=== PATIENT | female | born 1980 | race African-American/Black ===

== ENCOUNTER 2016-05-12 15:15 | Inpatient (IN) | payer OTHER ==
[2016-05-12 15:24] VITALS: BMI 40.6
[2016-05-12] MEDS ORDERED: CLINDAMYCIN 600MG PREMIX IVPB 50 ML IVPB ONE ×2 (17:24→17:59)
--- NOTE | 2016-05-12 17:50 | PDOC ---
History of Present Illness - General History Source: Patient - History of Present Illness Occurred: reports: other Severity: Yes: severe Lower Extremity Pain Location: left: foot <Cristi Villagomez - Last Filed: 05/12/16 18:10> <Larry Castillo - Last Filed: 05/12/16 22:14> - General Chief Complaint: Injury Stated Complaint: OPEN WOUND/ LT FOOT Time Seen by Provider: 05/12/16 17:18 Past History - Past Medical History Anemia: Yes Cancer: Yes (1 STENT) CHF: Yes Diabetes: Yes (NIDDM) Dialysis: Yes (Sat LEFT UPPER ARM FISTULA) HTN: Yes Hypercholesterolemia: Yes - Surgical History Cardiac Surgery: Yes (STENT) - Psycho/Social/Smoking Cessation Hx Anxiety: No Suicidal Ideation: No Smoking Status: No Smoking History: Never smoked Years of Tobacco Use: 0 Have you smoked in the past 12 months: No Number of Cigarettes Smoked Daily: 0 Cigars Per Day: 0 Information on smoking cessation initiated: No Hx Alcohol Use: No Drug/Substance Use Hx: No Substance Use Type: None Hx Substance Use Treatment: No <Cristi Villagomez - Last Filed: 05/12/16 18:10> <Larry Castillo - Last Filed: 05/12/16 22:14> - Past Medical History Allergies/Adverse Reactions: Allergies Allergy/AdvReac Type Severity Reaction Status Date / Time No Known Allergies Allergy Verified 05/12/16 15:24 Home Medications: Ambulatory Orders Carvedilol [Coreg -] 25 mg PO BID tablet 01/19/16 Clopidogrel Bisulfate [Plavix -] 75 mg PO DAILY tablet 01/19/16 Pantoprazole Sodium [Protonix -] 40 mg PO BID tablet.ec 01/19/16 Sevelamer Carbonate [Renvela -] 2,400 mg PO TIDCM tab 01/19/16 Review of Systems - Review of Systems Constitutional: No: Chills, Fever, Malaise <Cristi Villagomez Last Filed: 05/12/16 18:10> *Physical Exam - Vital Signs Last Vital Signs Temp Pulse Resp BP Pulse Ox 97.9 F 87 18 114/57 99 05/12/16 15:22 05/12/16 15:22 05/12/16 15:22 05/12/16 15:22 05/12/16 15:22 - Physical Exam General Appearance: Yes: Appropriately Dressed. No: Apparent Distress HEENT: positive: Normal Voice Neck: positive: Supple Respiratory/Chest: negative: Respiratory Distress Extremity: positive: Other (ulcer w/ purulent secretion to plantar aspect of L great toe extending into webspace of L 1st and 2nd digit, gangrene to L geart toe extending into foot, no erythema, pedal pulses ) Integumentary: positive: Dry, Warm Neurologic: positive: Fully Oriented, Alert, Normal Mood/Affect <Cristi Villagomez - Last Filed: 05/12/16 18:10> - Vital Signs Last Vital Signs Temp Pulse Resp BP Pulse Ox 97.9 F 87 18 114/57 99 05/12/16 15:22 05/12/16 15:22 05/12/16 15:22 05/12/16 15:22 05/12/16 15:22 <Larry Castillo - Last Filed: 05/12/16 22:14> ED Treatment Course - LABORATORY CBC & Chemistry Diagram: 05/12/16 17:40 05/12/16 17:40 - RADIOLOGY Radiology Studies Ordered: Category Date Time Status FOOT-LEFT [RAD] Stat Radiology 05/12/16 17:25 Ordered <Cristi Villagomez - Last Filed: 05/12/16 18:10> - LABORATORY CBC & Chemistry Diagram: 05/12/16 17:40 05/12/16 18:25 - ADDITIONAL ORDERS Additional order review: Laboratory Results 05/12/16 05/12/16 05/12/16 18:25 18:25 17:40 Sodium 133 L Cancelled Potassium 4.3 Cancelled Chloride 93 L Cancelled Carbon Dioxide 25 Cancelled Anion Gap 15 Cancelled BUN 47 H D Cancelled Creatinine 9.9 H* Cancelled Creat Clearance w eGFR 4.50 Cancelled Random Glucose 261 H D Cancelled Calcium 9.6 Cancelled Total Bilirubin 0.4 D Cancelled AST 12 L D Cancelled ALT 12 Cancelled Alkaline Phosphatase 106 D Cancelled C-Reactive Protein 7.6 H Total Protein 8.1 Cancelled Albumin 3.2 L Cancelled Serum , Qual 05/12/16 17:40 Sodium Potassium Chloride Carbon Dioxide Anion Gap BUN Creatinine Creat Clearance w eGFR Random Glucose Calcium Total Bilirubin AST ALT Alkaline Phosphatase C-Reactive Protein Total Protein Albumin Serum , Qual Negative 05/12/16 17:40 RBC 3.78 MCV 84.7 MCHC 33.1 RDW 14.7 MPV 9.3 Neutrophils % 74.0 Lymphocytes % 16.5 D Monocytes % 6.0 Eosinophils % 2.4 Basophils % 1.1 - Medications Given in the ED: ED Medications Discontinued Medications Generic Name Dose Route Start Last Admin Trade Name Melissa PRN Reason Stop Dose Admin Clindamycin Phosphate 50 mls @ 100 mls/hr 05/12/16 17:24 05/12/16 18:03 Cleocin 600 Mg Premix Ivpb - IVPB 05/12/16 17:53 100 mls/hr ONCE ONE Administration <Larry Castillo - Last Filed: 05/12/16 22:14> Progress Note - Progress Note Progress Note: No vascular consult per Dr. Mayorga. Instead Podiatry and ID consult. Patient has good distal pulses. <Larry Castillo - Last Filed: 05/12/16 22:14> Medical Decision Making - Medical Decision Making 05/12/16 17:43 36 yo F, NIDDM, ESRD on HD (M/W/F), CAD w/ 1 stent, here w/ wpund to L great toe. Pt states 1 week ago, she noticed "dried skin" to plantar aspect of L great toe and that one day when she removed her sock, dried skin came off. Has since noticed that wound has been getting worse. Denies any sig pain or foul odor. No f/c. See exam Diabetic foot Ulcer w/ cellulitis and gangrene to L great toe extending into foot, pulses -abx -labs -Xr r/o osteo -vascular c/s -admit 05/12/16 17:52 05/12/16 18:10 <Cristi Villagomez - Last Filed: 05/12/16 18:10> *DC/Admit/Observation/Transfer <Cristi Villagomez - Last Filed: 05/12/16 18:10> - Discharge Dispostion Admit: Yes <Larry Castillo - Last Filed: 05/12/16 22:14> Diagnosis at time of Disposition: Diabetic foot ulcer with osteomyelitis - Discharge Dispostion Condition at time of disposition: Fair - Referrals Referrals: Kahlil Hsieh MD [Primary Care Provider] -
[2016-05-12 17:52] LABS: BASOPHIL 1.1 % (0-2.0); EOSINOPHIL 2.4 % (0-4.5); MCHC 33.1 g/dl (32.0-36.0); MEAN CELL VOLUME 84.7 fl (80-96); MEAN PLT VOLUME 9.3 fl (7.5-11.1); PLATELET COUNT 228 K/MM3 (134-434); RDW 14.7 % (11.6-15.6); WHITE BLOOD COUNT 10.9 K/mm3 (4.0-10.0)
[2016-05-12 20:05] LABS: ALBUMIN 3.2 g/dl (3.4-5.0); BILIRUBIN,TOTAL 0.4 mg/dL (0.2-1.0); CALCIUM 9.6 mg/dL (8.5-10.1); TOT PROT 8.1 g/dl (6.4-8.2)
[2016-05-12 21:03] LABS: CREATININE 9.9 mg/dL (0.55-1.02)
--- NOTE | 2016-05-12 21:40 | HP ---
CHIEF COMPLAINT: Left Foot pain PCP: Kahlil Hsieh MD HISTORY OF PRESENT ILLNESS: 36 yo F, NIDDM, ESRD on HD (M/W/F), CAD (s/p 2015) here w/ pain and open wound of Left foot. Pt presents with 1 week h/o woursening wound of left foot. States she noticed "dried skin" to plantar aspect of L great toe and that one day when she removed her sock, dried skin came off. She says she hasn' t seen decorating inspector in over a year. Denies significant pain or swelling.Denies CP, JOHNSON, SOB, abd.pain, n/v. ER course was notable for: (1) foot xray suspicious for osteomyletis. (2) ESR elevated. (3) Started of Clindamycin Recent Travel:NO PAST MEDICAL HISTORY: NIDDM, ESRD on HD (M/W/F), CAD (s/p MARIE 05/2015) PAST SURGICAL HISTORY: MARIE 05/2015 Social History: Smoking:No Alcohol:no Drugs: no Family History: Allergies No Known Allergies Allergy (Verified 05/12/16 15:24) HOME MEDICATIONS: Home Medications Medication Instructions Recorded Carvedilol [Coreg -] 25 mg PO BID tablet 01/19/16 Clopidogrel Bisulfate [Plavix -] 75 mg PO DAILY tablet 01/19/16 Pantoprazole Sodium [Protonix -] 40 mg PO BID tablet.ec 01/19/16 Sevelamer Carbonate [Renvela -] 2,400 mg PO TIDCM tab 01/19/16 REVIEW OF SYSTEMS CONSTITUTIONAL: Absent: fever, chills, diaphoresis, generalized weakness, malaise, loss of appetite, weight change HEENT: Absent: rhinorrhea, nasal congestion, throat pain, throat swelling, difficulty swallowing, mouth swelling, ear pain, eye pain, visual changes CARDIOVASCULAR: Absent: chest pain, syncope, palpitations, irregular heart rate, lightheadedness , peripheral edema RESPIRATORY: Absent: cough, shortness of breath, dyspnea with exertion, orthopnea, wheezing, stridor, hemoptysis GASTROINTESTINAL: Absent: abdominal pain, abdominal distension, nausea, vomiting, diarrhea, constipation, melena, hematochezia GENITOURINARY: Absent: dysuria, frequency, urgency, hesitancy, hematuria, flank pain, genital pain MUSCULOSKELETAL: (+)foot ulcer Absent: myalgia, arthralgia, joint swelling, back pain, neck pain SKIN: Absent: rash, itching, pallor HEMATOLOGIC/IMMUNOLOGIC: Absent: easy bleeding, easy bruising, lymphadenopathy, frequent infections ENDOCRINE: Absent: unexplained weight gain, unexplained weight loss, heat intolerance, cold intolerance NEUROLOGIC: Absent: headache, focal weakness or paresthesias, dizziness, unsteady gait, seizure, mental status changes, bladder or bowel incontinence PSYCHIATRIC: Absent: anxiety, depression, suicidal or homicidal ideation, hallucinations. PHYSICAL EXAMINATION Vital Signs - 24 hr 05/12/16 15:22 Temperature 97.9 F Pulse Rate 87 Respiratory 18 Rate Blood Pressure 114/57 O2 Sat by Pulse 99 Oximetry (%) GENERAL: Awake, alert, and fully oriented, in no acute distress. HEAD: Normal with no signs of trauma. EYES:Left pupil round and reactive to light, extraocular movements intact, sclera anicteric, conjunctiva clear. Right sided lid lag.Right eye complete opacification. EARS, NOSE, THROAT: Ears normal, nares patent, oropharynx clear without exudates. dry mucous membranes. NECK: Normal range of motion, supple without lymphadenopathy, JVD, or masses. LUNGS: Breath sounds equal, clear to auscultation bilaterally. No wheezes, and no crackles. No accessory muscle use. HEART: Regular rate and rhythm, normal S1 and S2 without murmur, rub or gallop. ABDOMEN: Soft, nontender, not distended, normoactive bowel sounds, no guarding, no rebound, no masses. No hepatomegaly or splenomegaly. MUSCULOSKELETAL: Normal range of motion at all joints. No bony deformities or tenderness. No CVA tenderness. Left UE AV fistula UPPER EXTREMITIES: 2+ pulses, warm, well-perfused. No cyanosis. No clubbing. Cap refill <2 seconds. No peripheral edema. LOWER EXTREMITIES: 2+ pulses, warm, well-perfused. No calf tenderness. purulent ulcer of plantar surface of L great toe extending into webspace of L 1st and 2nd digit, desquamation left 1 and 2 toe,no crepitations, no erythema, 2+ pedal pulses NEUROLOGICAL: Cranial nerves II-XII intact. Normal speech. gait not observed. PSYCHIATRIC: Cooperative. Good eye contact. Appropriate mood and affect. SKIN: Warm, dry, normal turgor, no rashes or lesions noted. Laboratory Results - last 24 hr 05/12/16 05/12/16 05/12/16 17:40 17:40 17:40 WBC 10.9 H D RBC 3.78 Hgb 10.6 L D Hct 32.0 L MCV 84.7 MCHC 33.1 RDW 14.7 Plt Count 228 D MPV 9.3 Neutrophils % 74.0 Lymphocytes % 16.5 D Monocytes % 6.0 Eosinophils % 2.4 Basophils % 1.1 ESR Sodium Cancelled Potassium Cancelled Chloride Cancelled Carbon Dioxide Cancelled Anion Gap Cancelled BUN Cancelled Creatinine Cancelled Creat Clearance w eGFR Cancelled Random Glucose Cancelled Calcium Cancelled Total Bilirubin Cancelled AST Cancelled ALT Cancelled Alkaline Phosphatase Cancelled C-Reactive Protein Total Protein Cancelled Albumin Cancelled Serum , Qual Negative 05/12/16 05/12/16 05/12/16 17:40 18:25 18:25 WBC RBC Hgb Hct MCV MCHC RDW Plt Count MPV Neutrophils % Lymphocytes % Monocytes % Eosinophils % Basophils % ESR 113 H Sodium 133 L Potassium 4.3 Chloride 93 L Carbon Dioxide 25 Anion Gap 15 BUN 47 H D Creatinine 9.9 H* Creat Clearance w eGFR 4.50 Random Glucose 261 H D Calcium 9.6 Total Bilirubin 0.4 D AST 12 L D ALT 12 Alkaline Phosphatase 106 D C-Reactive Protein 7.6 H Total Protein 8.1 Albumin 3.2 L Serum , Qual ASSESSMENT/PLAN: 36 yo F, NIDDM, ESRD on HD (M/W/F), CAD w/ 1 stent admitted for diabetic foot ulcer r/o osteomyelitis. Problem List - Problem (1) Diabetic foot ulcer with osteomyelitis Assessment/Plan: * MRI of left foot * Given Clindamycin in ED * WIll give stat dose Vanco and Zosyn * ID consult Dr. Mckinley * Podiatry consult Dr. Mcpherson. * wound care * culture of wound * repeat labs in AM (2) DM (diabetes mellitus), type 2 with renal complications Assessment/Plan: * ADA/sodium/ renal diet * BGM ACHS * ISS ACHS * Hgb A1c (3) ESRD (end stage renal disease) on dialysis Assessment/Plan: * renal diet * Consult Nephrology Dr. Richards for dialysis MWF * avoid nephrotoxins * repeat CMP in AM (4) CAD (coronary artery disease) Assessment/Plan: * continue clopidogrel 75mg PO dialy * continue Carvedolol 25mg PO BID. * monitor for CP symptoms (5) HLD (hyperlipidemia) Assessment/Plan: * Intolerant to statin therapy (6) HTN (hypertension) Assessment/Plan: * Continue Carvedilol 75mg PO bid (7) DVT prophylaxis Assessment/Plan: * Heparin 5000U BID SQ Visit type - Emergency Visit Emergency Visit: Yes ED Registration Date: 05/12/16 Care time: The patient presented to the Emergency Department on the above date and was hospitalized for further evaluation of their emergent condition. - New Patient This patient is new to me today: Yes Date on this admission: 05/13/16 - Critical Care Critical Care patient: No
[2016-05-12] MEDS ORDERED: oxyCODONE HCL 5 MG TABLET PO PRN (22:11)
[2016-05-12] MEDS ORDERED: ONDANSETRON 4 MG/2 ML VIAL IVPB PRN (22:11)
[2016-05-12] MEDS ORDERED: ALBUTEROL SO4 0.083% IH SOL 2.5 MG/3 ML VIAL.NEB. NEB PRN (22:11)
[2016-05-12] MEDS ORDERED: VANCOMYCIN 1 GRAM (PRE-DOCKED) 250 ML IVPB ONE ×2 (22:22→23:03)
--- NOTE | 2016-05-12 22:34 | PN ---
<Cele Mayorga - Last Filed: 05/12/16 22:34> Teaching Attending Note Name of Resident: Rafa Chairez <Ashanti Pizarro - Last Filed: 05/12/16 23:54> Teaching Attending Note ATTENDING PHYSICIAN STATEMENT I saw and evaluated the patient. I reviewed the resident's note and discussed the case with the resident. I agree with the resident's findings and plan as documented. SUBJECTIVE: 36 year old female complaining of wound on plantar aspect of left foot for 1 week. Patient states while taking off socks, noticed a patch of dry skin on the left foot had peeled off. Despite trying to manage the wound at home it progressively got worse. Patient has a history of diabetes and has not been on any medications or followed guidelines for lab asst evaluation. She states that she has not seen a lab asst for over 1 year. She denies fever, chills, headache, cp, SOB, nausea, vomiting, abdominal pain, diarrhea or constipation. PMH: NIDDM (non compliant with medication), ESRD on HD (M/W/F), CAD w/ 1 stent, [place] (2016), CHF, HLD, HTN PSH: stent placement FMH: non contributory SH: denies smoking, drinking, drug use OBJECTIVE: VS: Last Vital Signs Temp Pulse Resp BP Pulse Ox 98.0 F 83 18 133/64 98 05/12/16 21:10 05/12/16 21:10 05/12/16 21:10 05/12/16 21:10 05/12/16 21:10 GENERAL:+Obese. Awake, alert, and fully oriented, in no acute distress HEENT: +lid lag, opacification of cornea. Atraumatic. Moist mucosa. No JVD LUNGS: No distress, speaks full sentences, clear to auscultation bilaterally HEART: Regular rate and rhythm, normal S1 and S2, no murmurs, rubs or gallops, peripheral pulses normal and equal bilaterally. ABDOMEN: Soft, nontender, normoactive bowel sounds. No guarding, no rebound. No masses EXTREMITIES: + purulent ulcer of plantar surface of L great toe extending into webspace of L 1st and 2nd digit, no crepitations, no erythema, 2+ pedal pulses , desquamation of skin of L forefoot. Normal range of motion, no edema. No clubbing or cyanosis. NEUROLOGICAL: Cranial nerves II through XII grossly intact. Normal speech, no focal sensorimotor deficits SKIN: Warm, Dry, normal turgor, no rashes. Labs: CBCD WBC 10.9 K/mm3 (4.0-10.0) H D 05/12/16 17:40 RBC 3.78 M/mm3 (3.60-5.2) 05/12/16 17:40 Hgb 10.6 GM/dL (10.7-15.3) L D 05/12/16 17:40 Hct 32.0 % (32.4-45.2) L 05/12/16 17:40 MCV 84.7 fl (80-96) 05/12/16 17:40 MCHC 33.1 g/dl (32.0-36.0) 05/12/16 17:40 RDW 14.7 % (11.6-15.6) 05/12/16 17:40 Plt Count 228 K/MM3 (134-434) D 05/12/16 17:40 MPV 9.3 fl (7.5-11.1) 05/12/16 17:40 CMP Sodium 133 mmol/L (136-145) L 05/12/16 18:25 Potassium 4.3 mmol/L (3.5-5.1) 05/12/16 18:25 Chloride 93 mmol/L (98-107) L 05/12/16 18:25 Carbon Dioxide 25 mmol/L (21-32) 05/12/16 18:25 Anion Gap 15 (8-16) 05/12/16 18:25 BUN 47 mg/dL (7-18) H D 05/12/16 18:25 Creatinine 9.9 mg/dL (0.55-1.02) H* 05/12/16 18:25 Creat Clearance w eGFR 4.50 (>60) 05/12/16 18:25 Calcium 9.6 mg/dL (8.5-10.1) 05/12/16 18:25 Total Bilirubin 0.4 mg/dL (0.2-1.0) D 05/12/16 18:25 AST 12 U/L (15-37) L D 05/12/16 18:25 ALT 12 U/L (12-78) 05/12/16 18:25 Alkaline Phosphatase 106 U/L (45-117) D 05/12/16 18:25 Total Protein 8.1 g/dl (6.4-8.2) 05/12/16 18:25 Albumin 3.2 g/dl (3.4-5.0) L 05/12/16 18:25 Foot Xray Impression: Left fifth metatarsal deformity. See above. ASSESSMENT AND PLAN: Admitted for left foot wound r/o osteomyelitis Diabetic foot wound - Vanco/Zosyn - Spanisher consult - MRI of L foot - ID consult - Blood cultures - U cultures Uncontrolled diabetes - Hemoglobin A1C - Diabetic management - RISS ESRD - on HD MWF - Nephrology consult DVT ppx Documentation prepared by Ashanti Pizarro, acting as medical affairs leader for Cele Mayorga M.D.
[2016-05-12] MEDS ORDERED: PIPERACILLIN/TAZOB 2.25 GM 50 ML IVPB ONE (22:42)
[2016-05-13] MEDS: INSULIN SLIDING SCALE (NOVOLOG) 1 VIAL SQ SCH ×4 (06:22→23:20)
[2016-05-13 08:21] LABS: MAGNESIUM 2.1 mg/dL (1.8-2.4); PHOSPHOROUS 7.8 mg/dL (2.5-4.9)
[2016-05-13] MEDS: SEVELAMER CARBONATE 800 MG TAB (FP) PO SCH ×3 (08:23→17:50)
[2016-05-13 08:31] LABS: BILIRUBIN,TOTAL 0.4 mg/dL (0.2-1.0); TOT PROT 7.6 g/dl (6.4-8.2)
--- NOTE | 2016-05-13 08:40 | PN ---
Physical Exam: SUBJECTIVE: Patient seen and examined. She has no complaints. OBJECTIVE: Vital Signs Period Temp Pulse Resp BP Sys/Canales Pulse Ox Last 24 Hr 97.5 F-97.9 F 76-78 18-18 124-138/62-79 98 GENERAL: The patient is awake, alert, and fully oriented, in no acute distress. LUNGS: Breath sounds equal, clear to auscultation bilaterally, no wheezes, no crackles, no accessory muscle use. HEART: Regular rate and rhythm, S1, S2 without murmur, rub or gallop. ABDOMEN: Obese, soft, nontender, nondistended, normoactive bowel sounds, no guarding, no rebound, no hepatosplenomegaly, no masses. EXTREMITIES: 2+ pulses, warm, well-perfused, no edema. Plantar ulcer of left 1st toe without purulent drainage. Laboratory Results - last 24 hr 05/13/16 06:15 POC Glucometer 213 Active Medications Generic Name Dose Route Start Last Admin Trade Name Freq PRN Reason Stop Dose Admin Albuterol Sulfate 1 amp 05/12/16 22:11 Ventolin 0.083% Nebulizer Soln - NEB Q4H PRN SHORT OF BREATH/WHEEZING Carvedilol 25 mg 05/13/16 10:00 Coreg - PO BID [facility]1983 Clopidogrel Bisulfate 75 mg 05/13/16 10:00 Plavix - PO DAILY SOLOMON Heparin Sodium (Porcine) 5,000 unit 05/13/16 10:00 Heparin - SQ BID SOLOMON Insulin Aspart 1 vial 05/13/16 07:00 05/13/16 06:22 Novolog Vial Sliding Scale - SQ 4 units ACHS SOLOMON Administration Protocol Ondansetron HCl 4 mg 05/12/16 22:11 Zofran Injection IVPB Q6H PRN NAUSEA Oxycodone HCl 5 mg 05/12/16 22:11 Roxicodone - PO Q4H PRN PAIN Pantoprazole Sodium 40 mg 05/13/16 10:00 Protonix - PO BID SOLOMON Sevelamer Carbonate 2,400 mg 05/13/16 08:00 05/13/16 08:23 Renvela - PO 2,400 mg TIDCM SOLOMON Administration ASSESSMENT/PLAN: This is a 36-year-old woman with a history of type 2 DM, ESRD on HD, CAD, stent , HTN, hyperlipidemia who was admitted with an infected diabetic foot ulcer. 1. Infected diabetic ulcer of left foot - Clindamycin, Vancomycin given in ER - Start Zosyn - Follow-up wound culture - ESR is 113 - MRI to evaluate for osteomyelitis - ID and podiatry consults 2. Type 2 diabetes mellitus - Continue Novolog sliding scale 3. ESRD on dialysis - Nephrology consult for HD - Continue Renvela 4. CAD, history of stent - Continue Coreg, Plavix 5. Hyperlipidemia - Unable to tolerate statins 6. Hypertension - Continue Coreg 7. Morbid obesity with BMI 41.4 Problem List - Problems (1) Morbid obesity with BMI of 40.0-44.9, adult Code(s): E66.01 - MORBID (SEVERE) OBESITY DUE TO EXCESS CALORIES Z68.41 - BODY MASS INDEX (BMI) 40.0-44.9, ADULT (2) Diabetic foot ulcer with osteomyelitis Code(s): E11.621 - TYPE 2 DIABETES MELLITUS WITH FOOT ULCER E11.69 - TYPE 2 DIABETES MELLITUS WITH OTHER SPECIFIED COMPLICATION L97.509 - NON-PRESSURE CHRONIC ULCER OTH PRT UNSP FOOT W UNSP SEVERITY M86.9 - OSTEOMYELITIS, UNSPECIFIED (3) CAD (coronary artery disease) Code(s): I25.10 - ATHSCL HEART DISEASE OF [place] CORONARY ARTERY W/O ANG PCTRS (4) DM (diabetes mellitus), type 2 with renal complications Code(s): E11.29 - TYPE 2 DIABETES MELLITUS W OTH DIABETIC KIDNEY COMPLICATION Qualifiers: Diabetes mellitus complication detail: with chronic kidney disease Diabetes mellitus dedicated 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 insulin use: unspecified dedicated 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 insulin use status Chronic kidney disease stage: unspecified stage Qualified Code (s): E11.22 - Type 2 diabetes mellitus with diabetic chronic kidney disease; N18.1 - Chronic kidney disease, stage 1; Z79.4 - prison (current) use of insulin (5) ESRD (end stage renal disease) on dialysis Code(s): N18.6 - END STAGE RENAL DISEASE Z99.2 - DEPENDENCE ON RENAL DIALYSIS (6) HLD (hyperlipidemia) Code(s): E78.5 - HYPERLIPIDEMIA, UNSPECIFIED (7) HTN (hypertension) Code(s): I10 - ESSENTIAL (PRIMARY) HYPERTENSION Qualifiers: Hypertension type: essential hypertension Qualified Code(s): I10 - Essential (primary) hypertension (8) Stented coronary artery Code(s): Z95.5 - PRESENCE OF CORONARY ANGIOPLASTY IMPLANT AND GRAFT Visit type - Emergency Visit Emergency Visit: Yes ED Registration Date: 05/12/16 Care time: The patient presented to the Emergency Department on the above date and was hospitalized for further evaluation of their emergent condition. - New Patient This patient is new to me today: Yes Date on this admission: 05/13/16 - Critical Care Critical Care patient: No - Discharge Referral Referred to [facility] No
[2016-05-13 08:41] LABS: CREATININE 11.1 mg/dL (0.55-1.02)
[2016-05-13 10:18] LABS: BASOPHIL 1.1 % (0-2.0); EOSINOPHIL 3.1 % (0-4.5); MCH 28.2 pg (25.7-33.7); MCHC 32.8 g/dl (32.0-36.0); MEAN CELL VOLUME 86.1 fl (80-96); MEAN PLT VOLUME 9.4 fl (7.5-11.1); NEUTROPHILS 70.1 % (42.8-82.8); PLATELET COUNT 228 K/MM3 (134-434); RDW 14.5 % (11.6-15.6); WHITE BLOOD COUNT 10.6 K/mm3 (4.0-10.0)
[2016-05-13 10:30] LABS: INR 1.08 (0.82-1.09); PROTHROMBIN TIME (PATIENT) 11.9 SEC (9.98-11.88)
[2016-05-13] MEDS: CLOPIDOGREL BISULFATE 75 MG TABLET (FP) PO SCH (10:55)
[2016-05-13] MEDS: CARVEDILOL 25 MG TABLET (FP) PO SCH ×2 (10:55→23:21)
[2016-05-13] MEDS: PANTOPRAZOLE 40 MG TABLET (FP) PO SCH ×2 (10:55→23:21)
[2016-05-13] MEDS: HEPARIN NA (PORCINE) 5,000 UNITS/ML 1ML VIAL SQ SCH ×2 (10:55→23:21)
[2016-05-13 11:17] LABS: PLATELET COMMENT2 NO CLOTTING DETECTED; PLATELET ESTIMATE ADEQUATE (NORMAL)
--- NOTE | 2016-05-13 13:02 | CONSULT ---
Consult - text type - Consultation Consultation Note: Podiatry Consultation: 36 year old non-compliant IDDM F presents for admission with L great toe ulcer x 2 weeks after developing scab on the foot. She denies seeing pus, does see clear drainage from the area of the last week. Denies F/V/N/C/SOB/CP. Afebrile , VSS. PMHx: IDDM, ESRD on HD, CAD s/p stent 2015 Meds: noted in chart PSHx: CAD s/p stent 2015 ALL: NKMA TAMKIA: Pedal pulses palpable, TG wnl, CFT brisk to all toes bilaterally. On the left foot, there is an ulcer plantar hallux and 1st interspace. The plantar aspect of the wound is mostly granular, there is some fibrotic slough at the 1st interspace. There is minimal periwound swelling and erythema. There is no purulence, no fluctuance, no ascending cellulitis. Minimal tenderness to palpation of wound. WBC: 10.6 ESR: 113 Wound Cx: pending L foot XR: ? of superimposed OM L 5th metatarsal Imp: 36 year old DM F with L foot DFI 1. C/w IV abx per ID 2. MRI pending 3. ESR clearly elevated 4. Will make further plan of action depending on results of MRI. Thank you for the courtesy of this consultation.
[2016-05-13] MEDS ORDERED: PIPERACILLIN/TAZOB 2.25 GM 50 ML IVPB ONE (14:30)
--- NOTE | 2016-05-13 14:34 | CONSULT ---
Consult Consult Specialty:: infectious diseases Reason for Consultation:: r/o osteo of the rt foot - History of Present Illness History of Present Illness: 36 yo F, NIDDM, ESRD on HD (M/W/F), CAD (s/p MARIE 2015) here w/ pain and open wound of Left foot. Pt presents with 1 week h/o worsening wound of left foot. L great toe ulcer x 2 weeks after developing scab on the foot. She denies seeing pus, does see clear drainage from the area of the last week. currently patient does not have any pain and it seems patient has multiple spots where the wounds are - History Source History Provided By: Patient, Family Member Limitations to Obtaining History: No Limitations - Past Medical History Cardio/Vascular: Yes: CAD, HTN Pulmonary: Yes: Asthma Gastrointestinal: Yes: GERD Renal/: Yes: Renal Failure ...LMP: 03/08/11 Endocrine: Yes: Diabetes Mellitus - Past Surgical History Past Surgical History: Yes: Stent - Alcohol/Substance Use Hx Alcohol Use: No - Smoking History Smoking history: Never smoked Have you smoked in the past 12 months: No Aproximately how many cigarettes per day: 0 - Social History ADL: Independent History of Recent Travel: No Home Medications - Allergies Allergies/Adverse Reactions: Allergies Allergy/AdvReac Type Severity Reaction Status Date / Time No Known Allergies Allergy Verified 05/12/16 15:24 - Home Medications Home Medications: Ambulatory Orders Carvedilol [Coreg -] 25 mg PO BID tablet 01/19/16 Clopidogrel Bisulfate [Plavix -] 75 mg PO DAILY tablet 01/19/16 Pantoprazole Sodium [Protonix -] 40 mg PO BID tablet.ec 01/19/16 Sevelamer Carbonate [Renvela -] 2,400 mg PO TIDCM tab 01/19/16 Review of Systems - Review of Systems Constitutional: reports: No Symptoms Eyes: reports: No Symptoms HENT: reports: No Symptoms Neck: reports: No Symptoms Cardiovascular: reports: No Symptoms Respiratory: reports: No Symptoms Gastrointestinal: reports: No Symptoms Genitourinary: reports: No Symptoms Musculoskeletal: reports: Joint Pain, Other (draiange from the wound) Integumentary: reports: Erythema Neurological: reports: No Symptoms Endocrine: reports: No Symptoms Hematology/Lymphatic: reports: No Symptoms Psychiatric: reports: No Symptoms Physical Exam Vital Signs: Vital Signs Temperature 97.3 F L 05/13/16 10:00 Pulse Rate 83 05/13/16 10:00 Respiratory Rate 20 05/13/16 10:00 Blood Pressure 134/73 05/13/16 10:00 O2 Sat by Pulse Oximetry (%) 98 05/13/16 01:14 Constitutional: Yes: Well Nourished, No Distress, Calm Eyes: Yes: Conjunctiva Clear HENT: Yes: Atraumatic Neck: Yes: Supple, Trachea Midline Cardiovascular: Yes: Regular Rate and Rhythm Respiratory: Yes: Regular, CTA Bilaterally Gastrointestinal: Yes: Normal Bowel Sounds, Soft Extremities: Yes: Other (On the left foot, there is an ulcer plantar hallux and 1st interspace. The plantar aspect of the wound with fibrotic slough at the 1st interspace. There is minimal periwound swelling and erythema. There is no purulence, no fluctuance, no ascending cellulitis. Minimal tenderness to palpation of wound.) Integumentary: Yes: Venous Stasis Changes, Other Wound/Incision: Yes: Clean/Dry, Dressing Dry and Intact Neurological: Yes: Alert, Oriented Psychiatric: Yes: Alert Labs: CBC, BMP 05/13/16 09:30 05/13/16 07:00 Imaging - Results X-ray: Report Reviewed, Image Reviewed Assessment/Plan patient evaluated i am worried that the patient might have deeper infection.i agree with mri.The wound though looks good and dried patient received abx after looking at patients esr i am going to start abx will await for cx report Problem List - Problem (1) Diabetic foot ulcer (2) DM (diabetes mellitus), type 2 with renal complications (3) ESRD (end stage renal disease) on dialysis (4) CAD (coronary artery disease) (5) HLD (hyperlipidemia) (6) HTN (hypertension) r/o osteo plan will start patient on ceftriaxone also will give oral clinda
[2016-05-13] MEDS: CEFTRIAXONE 1G/50 ML IVPB SCH (16:29)
[2016-05-13] MEDS: COLLAGENASE CLOSTRIDIUM HIST. 30 GRAMS TUBE TP SCH (16:41)
--- NOTE | 2016-05-13 17:45 | CONSULT ---
Consult Consult Specialty:: Nephrology Reason for Consultation:: ESRD - History of Present Illness Chief Complaint: left foot wound History of Present Illness: Pt is a 36 year old female with pmhx of DM, ESRD and CAD who presents to the ER with pain in her left foot. She first noticed a scab on Saturday and it worsened through the course of the week. She last went for HD on Saturday as she is a MWF schedule. She denies shortness of breath or palpitations. She denies fevers or chills. - History Source History Provided By: Patient - Past Medical History Cardio/Vascular: Yes: CAD, HTN Pulmonary: Yes: Asthma Gastrointestinal: Yes: GERD Renal/: Yes: Renal Failure, Hemodialysis ...LMP: 03/08/11 Endocrine: Yes: Diabetes Mellitus - Past Surgical History Past Surgical History: Yes: Stent - Alcohol/Substance Use Hx Alcohol Use: No - Smoking History Smoking history: Never smoked Have you smoked in the past 12 months: No Aproximately how many cigarettes per day: 0 - Social History ADL: Independent History of Recent Travel: No Home Medications - Allergies Allergies/Adverse Reactions: Allergies Allergy/AdvReac Type Severity Reaction Status Date / Time No Known Allergies Allergy Verified 05/12/16 15:24 - Home Medications Home Medications: Ambulatory Orders Carvedilol [Coreg -] 25 mg PO BID tablet 01/19/16 Clopidogrel Bisulfate [Plavix -] 75 mg PO DAILY tablet 01/19/16 Pantoprazole Sodium [Protonix -] 40 mg PO BID tablet.ec 01/19/16 Sevelamer Carbonate [Renvela -] 2,400 mg PO TIDCM tab 01/19/16 Family Disease History - Family Disease History Other Family History: DM Review of Systems - Review of Systems Constitutional: reports: No Symptoms Eyes: reports: No Symptoms HENT: reports: No Symptoms Neck: reports: No Symptoms Cardiovascular: reports: No Symptoms Respiratory: reports: No Symptoms Gastrointestinal: reports: No Symptoms Genitourinary: reports: No Symptoms Musculoskeletal: reports: Other (foot pain) Neurological: reports: No Symptoms Endocrine: reports: No Symptoms Hematology/Lymphatic: reports: No Symptoms Physical Exam Vital Signs: Vital Signs Temperature 97.6 F 05/13/16 14:37 Pulse Rate 69 05/13/16 14:37 Respiratory Rate 20 05/13/16 14:37 Blood Pressure 126/63 05/13/16 14:37 O2 Sat by Pulse Oximetry (%) 95 05/13/16 09:00 Constitutional: Yes: Calm Eyes: Yes: Conjunctiva Clear Neck: Yes: Supple Cardiovascular: Yes: S1, S2 Respiratory: Yes: CTA Bilaterally Gastrointestinal: Yes: Soft, Abdomen, Obese Renal/: Yes: WNL Musculoskeletal: Yes: Other Edema: Yes Neurological: Yes: Oriented Psychiatric: Yes: Oriented Labs: CBC, BMP 05/13/16 09:30 05/13/16 07:00 Laboratory Tests 05/12/16 05/12/16 05/12/16 17:40 18:25 22:00 WBC 10.9 H D INR Sodium 133 L Potassium 4.3 Chloride 93 L Carbon Dioxide 25 Anion Gap 15 BUN 47 H D Creatinine 9.9 H* Creat Clearance w eGFR 4.50 Random Glucose Hemoglobin A1c % 9.1 H D 05/13/16 05/13/16 05/13/16 07:00 09:30 09:30 WBC 10.6 H INR 1.08 Sodium 132 L Potassium 4.1 Chloride 94 L Carbon Dioxide 24 Anion Gap 14 BUN 57 H D Creatinine 11.1 H* Creat Clearance w eGFR 3.95 Random Glucose 209 H Hemoglobin A1c % Imaging - Results X-ray: Report Reviewed Problem List - Problems (1) CAD (coronary artery disease) Code(s): I25.10 - ATHSCL HEART DISEASE OF [place] CORONARY ARTERY W/O ANG PCTRS (2) DM (diabetes mellitus), type 2 with renal complications Code(s): E11.29 - TYPE 2 DIABETES MELLITUS W OTH DIABETIC KIDNEY COMPLICATION Qualifiers: Diabetes mellitus complication detail: with chronic kidney disease Diabetes mellitus 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 terminal manager insulin use: unspecified truck terminal manager insulin use status Chronic kidney disease stage: unspecified stage Qualified Code (s): E11.22 - Type 2 diabetes mellitus with diabetic chronic kidney disease; N18.1 - Chronic kidney disease, stage 1; Z79.4 - senior living (current) use of insulin (3) ESRD (end stage renal disease) on dialysis Code(s): N18.6 - END STAGE RENAL DISEASE Z99.2 - DEPENDENCE ON RENAL DIALYSIS (4) HLD (hyperlipidemia) Code(s): E78.5 - HYPERLIPIDEMIA, UNSPECIFIED (5) HTN (hypertension) Code(s): I10 - ESSENTIAL (PRIMARY) HYPERTENSION Qualifiers: Hypertension type: essential hypertension Qualified Code(s): I10 - Essential (primary) hypertension Assessment/Plan Current Medications Generic Name Dose Route Start Last Admin Trade Name Freq PRN Reason Stop Dose Admin Albuterol Sulfate 1 amp 05/12/16 22:11 Ventolin 0.083% Nebulizer Soln - NEB Q4H PRN SHORT OF BREATH/WHEEZING Carvedilol 25 mg 05/13/16 10:00 05/13/16 10:55 Coreg - PO 25 mg BID [facility] Administration Clindamycin HCl 300 mg 05/13/16 18:00 Cleocin - PO Q6HPO [facility] Clopidogrel Bisulfate 75 mg 05/13/16 10:00 05/13/16 10:55 Plavix - PO 75 mg DAILY [facility] Administration Collagenase 1 applic 05/14/16 10:00 05/13/16 16:41 Santyl - TP 1 applic DAILY [facility] Administration Heparin Sodium (Porcine) 5,000 unit 05/13/16 10:00 05/13/16 10:55 Heparin - SQ 5,000 unit BID [facility] Administration Ceftriaxone Sodium 50 mls @ 100 mls/hr 05/13/16 14:45 05/13/16 16:29 Rocephin 1gm Ivpb (Pre-Docked) IVPB 100 mls/hr DAILY [facility] Administration Insulin Aspart 1 vial 05/13/16 07:00 05/13/16 16:30 Novolog Vial Sliding Scale - SQ 4 units ACHS [facility] Administration Protocol Ondansetron HCl 4 mg 05/12/16 22:11 Zofran Injection IVPB Q6H PRN NAUSEA Oxycodone HCl 5 mg 05/12/16 22:11 Roxicodone - PO Q4H PRN PAIN Pantoprazole Sodium 40 mg 05/13/16 10:00 05/13/16 10:55 Protonix - PO 40 mg BID [facility] Administration Sevelamer Carbonate 2,400 mg 05/13/16 08:00 05/13/16 12:31 Renvela - PO 2,400 mg TIDCM [facility] Administration Impression 1. ESRD 2. DFU 3. DM 4. CAD 5. GERD Plan - will arrange for HD tomorrow - cont renvela - podiatry eval - cont abx and wound care - resume home meds Dr Richards
[2016-05-13] MEDS: CLINDAMYCIN HCL 150 MG CAPSULE (FP) PO SCH (17:50)
[2016-05-14] MEDS: CLINDAMYCIN HCL 150 MG CAPSULE (FP) PO SCH ×4 (05:58→18:11)
[2016-05-14] MEDS: SEVELAMER CARBONATE 800 MG TAB (FP) PO SCH ×3 (08:39→17:49)
[2016-05-14] MEDS: INSULIN SLIDING SCALE (NOVOLOG) 1 VIAL SQ SCH ×4 (09:17→22:47)
[2016-05-14] MEDS: CARVEDILOL 25 MG TABLET (FP) PO SCH ×2 (11:00→22:47)
--- NOTE | 2016-05-14 11:19 | PN ---
Progress Note (short form) - Note Progress Note: Podiatry: Seen and evaluated at bedside, NAD. Pain well controlled, denies F/V/N/C/SOB/ CP. Patient non-compliant to DM diet. Missed her am dialysis due to leaving her bed to get food in the cafeteria. Afebrile, VSS. TAMIKA: L foot: pedal pulses palpable, TG wnl, CFT brisk to all toes. There is a plantar hallux ulcer, mixed fibrogranular, no probing deep, no purulence, no fluctuance. There is a 1st interspace wound, mostly fibrotic with some liquefactive tissue, probes deep, no purulence, no fluctuance, no ascending cellulitis, no soft tissue crepitus, no signs of active infection. WBC: 10.6 ESR: 113 L foot MRI: pending Imp: 36 year old IDDM F with L foot DFI 1. C/w IV abx per ID 2. MRI pending. Complicated by the fact that the patient had coronary stents placed 2015. 3. Will need debridement/lavage, however need MRI to determine if bone biopsy is necessary. 4. Plan for OR tomorrow. NPO after breakfast. Needs cardiac clearance prior to procedure, for IV sedation and local. 5. Will follow. Ajay Palomino DPM
--- NOTE | 2016-05-14 11:51 | PN ---
Physical Exam: SUBJECTIVE: Patient seen and examined. no complaints, waiting for dialysis. OBJECTIVE: Vital Signs Period Temp Pulse Resp BP Sys/Canales Pulse Ox Last 24 Hr 97.3 F-97.9 F 69-75 18-20 126-137/63-72 95 GENERAL: The patient is awake, alert, and fully oriented, in no acute distress. HEAD: Normal with no signs of trauma. EYES: blind right eye. extraocular movements intact, sclera anicteric, conjunctiva clear. No ptosis. ENT: Ears normal, nares patent, oropharynx clear without exudates, moist mucous membranes. LUNGS: Breath sounds equal, clear to auscultation bilaterally, no wheezes, no crackles, no accessory muscle use. HEART: Regular rate and rhythm, S1, S2 without murmur, rub or gallop. ABDOMEN: obese, soft, nontender, nondistended, normoactive bowel sounds EXTREMITIES: 2+ pulses, warm, well-perfused, left 1st metatarsal plantar surface phalangeal joint with ulcer extending from medial to between 1st and 2nd metatarsal web space- no purulent or bloody discharge, no surrounding erythema, no fluctuance NEUROLOGICAL: Cranial nerves II through XII grossly intact. Normal speech, gait steady with walker. PSYCH: Normal mood, normal affect. SKIN: Warm, dry, normal turgor, no rashes or lesions noted Laboratory Results - last 24 hr 05/13/16 05/13/16 05/13/16 12:04 16:30 23:17 POC Glucometer 210 213 256 05/14/16 05:58 POC Glucometer 187 Active Medications Active Medications Albuterol Sulfate (Ventolin 0.083% Nebulizer Soln -) 1 amp NEB Q4H PRN PRN Reason: SHORT OF BREATH/WHEEZING Carvedilol (Coreg -) 25 mg PO BID [facility] Last Admin: 05/14/16 11:00 Dose: Not Given Clindamycin HCl (Cleocin -) 300 mg PO Q6HPO [facility] Last Admin: 05/14/16 18:11 Dose: Not Given Clopidogrel Bisulfate (Plavix -) 75 mg PO DAILY [facility] Last Admin: 05/14/16 11:52 Dose: 75 mg Collagenase (Santyl -) 1 applic TP DAILY [facility] Last Admin: 05/14/16 11:53 Dose: 1 applic Heparin Sodium (Porcine) (Heparin -) 5,000 unit SQ BID [facility] Last Admin: 05/14/16 11:52 Dose: 5,000 unit Ceftriaxone Sodium (Rocephin 1gm Ivpb (Pre-Docked)) 50 mls @ 100 mls/hr IVPB DAILY [facility] Last Admin: 05/14/16 11:52 Dose: 100 mls/hr Insulin Aspart (Novolog Vial Sliding Scale -) 1 vial SQ [facility] PRN Reason: Protocol Last Admin: 05/14/16 17:22 Dose: Not Given Ondansetron HCl (Zofran Injection) 4 mg IVPB Q6H PRN PRN Reason: NAUSEA Oxycodone HCl (Roxicodone -) 5 mg PO Q4H PRN PRN Reason: PAIN Pantoprazole Sodium (Protonix -) 40 mg PO BID [facility] Last Admin: 05/14/16 11:52 Dose: 40 mg Sevelamer Carbonate (Renvela -) 2,400 mg PO TIDCM [facility] Last Admin: 05/14/16 17:49 Dose: Not Given ASSESSMENT/PLAN: 36 yr old woman with NIDDM, ESRD on HD ([facility]), CAD s/p 1 stent admitted for diabetic foot ulcer. #Foot ulcer, suspicious for osteomyelitis given elevated ESR and xray findings - MRI pending - Dr. Palomino for debridement tomorrow under IV sedation and local anesthesia. -- she has no cardiac complaints with normal EKG today, METS >4,she does not require further cardiac testing prior to debridement. given diabetes, she is intermediate risk for low risk procedure. - cleocin 300mg q6hr - rocephin 1gm daily -- started 05/14 - Dr. Mckinley consulted - wound dressing with santyl #DM - NISS - BGM ACHS #ESRD on [facility] dialysis - Dr. Richards - Renvela 2.4gm po tid #CAD s/p stent - plavix #HTN - coreg #Morbid obesity - renal/diabetic diet #Diet - renal, diabetic #DVt: heparin BID Visit type - Emergency Visit Emergency Visit: No - New Patient This patient is new to me today: Yes Date on this admission: 05/14/16 - Critical Care Critical Care patient: No - Discharge Referral Referred to [facility] Med P.C.: No
[2016-05-14] MEDS: HEPARIN NA (PORCINE) 5,000 UNITS/ML 1ML VIAL SQ SCH ×2 (11:52→22:47)
[2016-05-14] MEDS: CEFTRIAXONE 1G/50 ML IVPB SCH (11:52)
[2016-05-14] MEDS: PANTOPRAZOLE 40 MG TABLET (FP) PO SCH ×2 (11:52→22:49)
[2016-05-14] MEDS: CLOPIDOGREL BISULFATE 75 MG TABLET (FP) PO SCH (11:52)
[2016-05-14] MEDS: COLLAGENASE CLOSTRIDIUM HIST. 30 GRAMS TUBE TP SCH (11:53)
--- NOTE | 2016-05-14 12:26 | EKG ---
Test Reason : Blood Pressure : / mmHG Vent. Rate : 066 BPM Atrial Rate : 066 BPM P-R Int : 168 ms QRS Dur : 116 ms QT Int : 412 ms P-R-T Axes : 043 031 048 degrees QTc Int : 431 ms NORMAL SINUS RHYTHM NORMAL ECG WHEN COMPARED WITH ECG OF 12-MAY-2016 18:16, NO SIGNIFICANT CHANGE WAS FOUND Confirmed by JP ESPINOZA MD ([id number]) on 05/14/2016 12:26:09 PM Referred By: KIAN HARRINGTON Confirmed By:JP ESPINOZA MD
[2016-05-14 15:52] LABS: EOSINOPHIL 3.1 % (0-4.5); MCH 28.6 pg (25.7-33.7); MCHC 33.7 g/dl (32.0-36.0); MEAN CELL VOLUME 84.8 fl (80-96); MEAN PLT VOLUME 9.1 fl (7.5-11.1); NEUTROPHILS 70.1 % (42.8-82.8); PLATELET COUNT 237 K/MM3 (134-434); RDW 14.7 % (11.6-15.6); WHITE BLOOD COUNT 8.5 K/mm3 (4.0-10.0)
--- NOTE | 2016-05-14 16:20 | PN ---
Progress Note, Physician History of Present Illness: Pt seen and examined at bedside. She is currently getting HD. She denies shortness of breath. She denies fevers or chills. - Current Medication List Current Medications: Active Medications Albuterol Sulfate (Ventolin 0.083% Nebulizer Soln -) 1 amp NEB Q4H PRN PRN Reason: SHORT OF BREATH/WHEEZING Carvedilol (Coreg -) 25 mg PO BID [facility] Last Admin: 05/13/16 23:21 Dose: 25 mg Clindamycin HCl (Cleocin -) 300 mg PO Q6HPO [facility] Last Admin: 05/14/16 11:52 Dose: 300 mg Clopidogrel Bisulfate (Plavix -) 75 mg PO DAILY [facility] Last Admin: 05/14/16 11:52 Dose: 75 mg Collagenase (Santyl -) 1 applic TP DAILY [facility] Last Admin: 05/14/16 11:53 Dose: 1 applic Heparin Sodium (Porcine) (Heparin -) 5,000 unit SQ BID [facility] Last Admin: 05/14/16 11:52 Dose: 5,000 unit Ceftriaxone Sodium (Rocephin 1gm Ivpb (Pre-Docked)) 50 mls @ 100 mls/hr IVPB DAILY [facility] Last Admin: 05/14/16 11:52 Dose: 100 mls/hr Insulin Aspart (Novolog Vial Sliding Scale -) 1 vial SQ ACHS [facility] PRN Reason: Protocol Last Admin: 05/14/16 12:40 Dose: 8 units Ondansetron HCl (Zofran Injection) 4 mg IVPB Q6H PRN PRN Reason: NAUSEA Oxycodone HCl (Roxicodone -) 5 mg PO Q4H PRN PRN Reason: PAIN Pantoprazole Sodium (Protonix -) 40 mg PO BID [facility] Last Admin: 05/14/16 11:52 Dose: 40 mg Sevelamer Carbonate (Renvela -) 2,400 mg PO TIDCM [facility] Last Admin: 05/14/16 13:15 Dose: 2,400 mg - Objective Vital Signs: Vital Signs Temperature 98.5 F 05/14/16 15:15 Pulse Rate 78 05/14/16 15:50 Respiratory Rate 18 05/14/16 15:50 Blood Pressure 90/42 05/14/16 15:50 O2 Sat by Pulse Oximetry (%) 95 05/14/16 09:00 Constitutional: Yes: Calm Eyes: Yes: Conjunctiva Clear HENT: Yes: Atraumatic Neck: Yes: Supple Cardiovascular: Yes: S1, S2 Respiratory: Yes: CTA Bilaterally Gastrointestinal: Yes: Soft, Abdomen, Obese Genitourinary: Yes: WNL Musculoskeletal: Yes: Muscle Weakness (foot pain) Edema: Yes Edema: LLE: Trace, RLE: Trace Neurological: Yes: Oriented Psychiatric: Yes: Oriented Labs: CBC, BMP 05/14/16 03:20 INR, PTT INR 1.08 (0.82-1.09) 05/13/16 09:30 Problem List - Problems (1) CAD (coronary artery disease) Code(s): I25.10 - ATHSCL HEART DISEASE OF [place] CORONARY ARTERY W/O ANG PCTRS (2) DM (diabetes mellitus), type 2 with renal complications Code(s): E11.29 - TYPE 2 DIABETES MELLITUS W OTH DIABETIC KIDNEY COMPLICATION Qualifiers: Diabetes mellitus complication detail: with chronic kidney disease Diabetes mellitus shelter insulin use: unspecified assistant terminal manager insulin use status Chronic kidney disease stage: unspecified stage Qualified Code (s): E11.22 - Type 2 diabetes mellitus with diabetic chronic kidney disease; N18.1 - Chronic kidney disease, stage 1; Z79.4 - alf (current) use of insulin (3) ESRD (end stage renal disease) on dialysis Code(s): N18.6 - END STAGE RENAL DISEASE Z99.2 - DEPENDENCE ON RENAL DIALYSIS (4) HLD (hyperlipidemia) Code(s): E78.5 - HYPERLIPIDEMIA, UNSPECIFIED (5) HTN (hypertension) Code(s): I10 - ESSENTIAL (PRIMARY) HYPERTENSION Qualifiers: Hypertension type: essential hypertension Qualified Code(s): I10 - Essential (primary) hypertension Assessment/Plan Current Medications Generic Name Dose Route Start Last Admin Trade Name Freq PRN Reason Stop Dose Admin Albuterol Sulfate 1 amp 05/12/16 22:11 Ventolin 0.083% Nebulizer Soln - NEB Q4H PRN SHORT OF BREATH/WHEEZING Carvedilol 25 mg 05/13/16 10:00 05/13/16 23:21 Coreg - PO 25 mg BID [facility] Administration Clindamycin HCl 300 mg 05/13/16 18:00 05/14/16 11:52 Cleocin - PO 300 mg Q6HPO [facility] Administration Clopidogrel Bisulfate 75 mg 05/13/16 10:00 05/14/16 11:52 Plavix - PO 75 mg DAILY [facility] Administration Collagenase 1 applic 05/14/16 10:00 05/14/16 11:53 Santyl - TP 1 applic DAILY [facility] Administration Heparin Sodium (Porcine) 5,000 unit 05/13/16 10:00 05/14/16 11:52 Heparin - SQ 5,000 unit BID [facility] Administration Ceftriaxone Sodium 50 mls @ 100 mls/hr 05/13/16 14:45 05/14/16 11:52 Rocephin 1gm Ivpb (Pre-Docked) IVPB 100 mls/hr DAILY [facility] Administration Insulin Aspart 1 vial 05/13/16 07:00 05/14/16 12:40 Novolog Vial Sliding Scale - SQ 8 units ACHS [facility] Administration Protocol Ondansetron HCl 4 mg 05/12/16 22:11 Zofran Injection IVPB Q6H PRN NAUSEA Oxycodone HCl 5 mg 05/12/16 22:11 Roxicodone - PO Q4H PRN PAIN Pantoprazole Sodium 40 mg 05/13/16 10:00 05/14/16 11:52 Protonix - PO 40 mg BID [facility] Administration Sevelamer Carbonate 2,400 mg 05/13/16 08:00 05/14/16 13:15 Renvela - PO 2,400 mg TIDCM [facility] Administration Impression 1. ESRD 2. DFU 3. DM 4. CAD 5. GERD Plan - HD today, pt is tolerating this far - abx per ID - follow up imaging - cont current meds - cont renvela - podiatry follow up - cont wound care Dr Richards
[2016-05-14 16:24] LABS: CALCIUM 8.8 mg/dL (8.5-10.1)
[2016-05-14 16:41] LABS: CREATININE 13.3 mg/dL (0.55-1.02)
[2016-05-14] MEDS ORDERED: INSULIN (NOVOLOG) ASPART 100 UNITS/ML 10ML VIAL ONE (17:16)
--- NOTE | 2016-05-14 18:52 | PN ---
Teaching Attending Note Name of Resident: Stephanie Smyth ATTENDING PHYSICIAN STATEMENT I saw and evaluated the patient. I reviewed the resident's note and discussed the case with the resident. I agree with the resident's findings and plan as documented. SUBJECTIVE: Patient has no complaints. OBJECTIVE: Vital Signs Period Temp Pulse Resp BP Sys/Canales Pulse Ox Last 24 Hr 97.3 F-98.5 F 69-102 18-20 86-137/37-82 95-95 GENERAL: The patient is awake, alert, and fully oriented, in no acute distress. LUNGS: Breath sounds equal, clear to auscultation bilaterally, no wheezes, no crackles, no accessory muscle use. HEART: Regular rate and rhythm, S1, S2 without murmur, rub or gallop. ABDOMEN: Obese, soft, nontender, nondistended, normoactive bowel sounds, no guarding, no rebound, no hepatosplenomegaly, no masses. EXTREMITIES: 2+ pulses, warm, well-perfused, no edema. Plantar ulcer of left 1st toe without purulent drainage. ASSESSMENT AND PLAN: This is a 36-year-old woman with a history of type 2 DM, ESRD on HD, CAD, stent , HTN, hyperlipidemia who was admitted with an infected diabetic foot ulcer. 1. Infected diabetic ulcer of left foot - Clindamycin, Vancomycin given in ER - Start Zosyn - Follow-up wound culture - ESR is 113 - MRI to evaluate for osteomyelitis - ID and podiatry consults 2. Type 2 diabetes mellitus - Continue Novolog sliding scale 3. ESRD on dialysis - Nephrology consult for HD - Continue Renvela 4. CAD, history of stent - Continue Coreg, Plavix 5. Hyperlipidemia - Unable to tolerate statins 6. Hypertension - Continue Coreg 7. Morbid obesity with BMI 41.4 Problem List - Problems (1) Morbid obesity with BMI of 40.0-44.9, adult Code(s): E66.01 - MORBID (SEVERE) OBESITY DUE TO EXCESS CALORIES Z68.41 - BODY MASS INDEX (BMI) 40.0-44.9, ADULT (2) Diabetic foot ulcer with osteomyelitis Code(s): E11.621 - TYPE 2 DIABETES MELLITUS WITH FOOT ULCER E11.69 - TYPE 2 DIABETES MELLITUS WITH OTHER SPECIFIED COMPLICATION L97.509 - NON-PRESSURE CHRONIC ULCER OTH PRT UNSP FOOT W UNSP SEVERITY M86.9 - OSTEOMYELITIS, UNSPECIFIED (3) CAD (coronary artery disease) Code(s): I25.10 - ATHSCL HEART DISEASE OF [place] CORONARY ARTERY W/O ANG PCTRS (4) DM (diabetes mellitus), type 2 with renal complications Code(s): E11.29 - TYPE 2 DIABETES MELLITUS W OTH DIABETIC KIDNEY COMPLICATION Qualifiers: Diabetes mellitus complication detail: with chronic kidney disease Diabetes mellitus computer terminal operator insulin use: unspecified halfway insulin use status Chronic kidney disease stage: unspecified stage Qualified Code (s): E11.22 - Type 2 diabetes mellitus with diabetic chronic kidney disease; N18.1 - Chronic kidney disease, stage 1; Z79.4 - alf (current) use of insulin (5) ESRD (end stage renal disease) on dialysis Code(s): N18.6 - END STAGE RENAL DISEASE Z99.2 - DEPENDENCE ON RENAL DIALYSIS (6) HLD (hyperlipidemia) Code(s): E78.5 - HYPERLIPIDEMIA, UNSPECIFIED (7) HTN (hypertension) Code(s): I10 - ESSENTIAL (PRIMARY) HYPERTENSION Qualifiers: Hypertension type: essential hypertension Qualified Code(s): I10 - Essential (primary) hypertension (8) Stented coronary artery Code(s): Z95.5 - PRESENCE OF CORONARY ANGIOPLASTY IMPLANT AND GRAFT
[2016-05-15] MEDS: CLINDAMYCIN HCL 150 MG CAPSULE (FP) PO SCH ×3 (00:11→13:55)
[2016-05-15] MEDS: INSULIN SLIDING SCALE (NOVOLOG) 1 VIAL SQ SCH ×4 (06:04→22:17)
[2016-05-15] MEDS: SEVELAMER CARBONATE 800 MG TAB (FP) PO SCH ×3 (08:45→16:51)
[2016-05-15] MEDS: CLOPIDOGREL BISULFATE 75 MG TABLET (FP) PO SCH (08:59)
[2016-05-15] MEDS: CARVEDILOL 25 MG TABLET (FP) PO SCH ×2 (08:59→22:16)
[2016-05-15] MEDS: HEPARIN NA (PORCINE) 5,000 UNITS/ML 1ML VIAL SQ SCH ×2 (08:59→22:17)
[2016-05-15] MEDS: CEFTRIAXONE 1G/50 ML IVPB SCH (09:01)
[2016-05-15] MEDS: COLLAGENASE CLOSTRIDIUM HIST. 30 GRAMS TUBE TP SCH (09:02)
[2016-05-15] MEDS: PANTOPRAZOLE 40 MG TABLET (FP) PO SCH ×2 (09:05→22:16)
--- NOTE | 2016-05-15 10:54 | PN ---
Physical Exam: SUBJECTIVE: Patient seen and examined denied chest pain, palpitations, SOB, fever. has been ambulating with walker without difficulty, eating and toileting without difficulty. OBJECTIVE: Vital Signs Period Temp Pulse Resp BP Sys/Canales Pulse Ox Last 24 Hr 98.5 F-98.8 F 69-102 16-20 86-140/37-77 96 GENERAL: The patient is awake, alert, and fully oriented, in no acute distress. ENT: moist mucous membranes. LUNGS: Breath sounds equal, clear to auscultation bilaterally, no wheezes, no crackles, no accessory muscle use. HEART: Regular rate and rhythm, S1, S2 without murmur, rub or gallop. bruit heard in right 2nd intercostal space ABDOMEN: obese, Soft, nontender, nondistended, normoactive bowel sounds EXTREMITIES: 2+ pulses, warm, well-perfused, left 1st metatarsal plantar surface phalangeal joint with ulcer extending from medial to between 1st and 2nd metatarsal web space- no purulent or bloody discharge, no surrounding erythema, no fluctuance. Laboratory Results - last 24 hr 05/14/16 05/14/16 05/14/16 03:20 03:20 12:34 WBC 8.5 RBC 3.57 L Hgb 10.2 L Hct 30.2 L MCV 84.8 MCHC 33.7 RDW 14.7 Plt Count 237 MPV 9.1 Neutrophils % 70.1 Lymphocytes % 19.7 Monocytes % 6.1 Eosinophils % 3.1 Basophils % 1.0 Sodium 129 L Potassium 4.7 Chloride 92 L Carbon Dioxide 22 Anion Gap 15 BUN 70 H D Creatinine 13.3 H* POC Glucometer 306 Random Glucose 176 H Calcium 8.8 05/14/16 05/15/16 21:50 05:59 WBC RBC Hgb Hct MCV MCHC RDW Plt Count MPV Neutrophils % Lymphocytes % Monocytes % Eosinophils % Basophils % Sodium Potassium Chloride Carbon Dioxide Anion Gap BUN Creatinine POC Glucometer 248 163 Random Glucose Calcium Active Medications Generic Name Dose Route Start Last Admin Trade Name Freq PRN Reason Stop Dose Admin Albuterol Sulfate 1 amp 05/12/16 22:11 Ventolin 0.083% Nebulizer Soln - NEB Q4H PRN SHORT OF BREATH/WHEEZING Carvedilol 25 mg 05/13/16 10:00 05/15/16 08:59 Coreg - PO 25 mg BID [facility] Administration Clindamycin HCl 300 mg 05/13/16 18:00 05/15/16 06:00 Cleocin - PO 300 mg Q6HPO [facility] Administration Clopidogrel Bisulfate 75 mg 05/13/16 10:00 05/15/16 08:59 Plavix - PO Not Given DAILY [facility] Collagenase 1 applic 05/14/16 10:00 05/15/16 09:02 Santyl - TP 1 applic DAILY [facility] Administration Heparin Sodium (Porcine) 5,000 unit 05/13/16 10:00 05/15/16 08:59 Heparin - SQ Not Given BID [facility] Ceftriaxone Sodium 50 mls @ 100 mls/hr 05/13/16 14:45 05/15/16 09:01 Rocephin 1gm Ivpb (Pre-Docked) IVPB 100 mls/hr DAILY [facility] Administration Insulin Aspart 1 vial 05/13/16 07:00 05/15/16 06:04 Novolog Vial Sliding Scale - SQ 2 units ACHS [facility] Administration Protocol Ondansetron HCl 4 mg 05/12/16 22:11 Zofran Injection IVPB Q6H PRN NAUSEA Oxycodone HCl 5 mg 05/12/16 22:11 Roxicodone - PO Q4H PRN PAIN Pantoprazole Sodium 40 mg 05/13/16 10:00 05/15/16 09:05 Protonix - PO 40 mg BID [facility] Administration Sevelamer Carbonate 2,400 mg 05/13/16 08:00 05/15/16 08:45 Renvela - PO 2,400 mg TIDCM [facility] Administration ASSESSMENT/PLAN: 36 yr old woman with NIDDM, ESRD on HD ([facility]), CAD s/p 1 stent admitted for diabetic foot ulcer. #Foot ulcer, suspicious for osteomyelitis given elevated ESR and xray findings; wound culture with MRSA, diph/coryne/strep agalactaie group B - MRI pending- unable to complete yesterday because MRI required information regarind her stent which she brought in today - Dr. Palomino for debridement today -- she has no cardiac complaints with normal EKG today, METS >4,she does not require further cardiac testing prior to debridement. given diabetes, she is intermediate risk for low risk procedure. - cleocin 300mg q6hr - rocephin 1gm daily -- started 05/14 - Dr. Mckinley consulted - wound dressing with santyl #DM - NISS - BGM ACHS #ESRD on [facility]wf dialysis - Dr. Richards - Renvela 2.4gm po tid #CAD s/p stent - plavix #HTN - coreg #Morbid obesity - chronic - renal/diabetic diet #Diet - NPO today in anticipation of debridement #DVt: heparin BID Visit type - Emergency Visit Emergency Visit: No - New Patient This patient is new to me today: No - Critical Care Critical Care patient: No
--- NOTE | 2016-05-15 12:22 | PN ---
Progress Note, Physician History of Present Illness: no new events patient going for surgery - Current Medication List Current Medications: Active Medications Albuterol Sulfate (Ventolin 0.083% Nebulizer Soln -) 1 amp NEB Q4H PRN PRN Reason: SHORT OF BREATH/WHEEZING Carvedilol (Coreg -) 25 mg PO BID [facility] Last Admin: 05/15/16 08:59 Dose: 25 mg Clindamycin HCl (Cleocin -) 300 mg PO Q6HPO [facility] Last Admin: 05/15/16 06:00 Dose: 300 mg Clopidogrel Bisulfate (Plavix -) 75 mg PO DAILY [facility] Last Admin: 05/15/16 08:59 Dose: Not Given Collagenase (Santyl -) 1 applic TP DAILY [facility] Last Admin: 05/15/16 09:02 Dose: 1 applic Heparin Sodium (Porcine) (Heparin -) 5,000 unit SQ BID [facility] Last Admin: 05/15/16 08:59 Dose: Not Given Ceftriaxone Sodium (Rocephin 1gm Ivpb (Pre-Docked)) 50 mls @ 100 mls/hr IVPB DAILY [facility] Last Admin: 05/15/16 09:01 Dose: 100 mls/hr Insulin Aspart (Novolog Vial Sliding Scale -) 1 vial SQ ACHS [facility] PRN Reason: Protocol Last Admin: 05/15/16 06:04 Dose: 2 units Ondansetron HCl (Zofran Injection) 4 mg IVPB Q6H PRN PRN Reason: NAUSEA Oxycodone HCl (Roxicodone -) 5 mg PO Q4H PRN PRN Reason: PAIN Pantoprazole Sodium (Protonix -) 40 mg PO BID [facility] Last Admin: 05/15/16 09:05 Dose: 40 mg Sevelamer Carbonate (Renvela -) 2,400 mg PO TIDCM [facility] Last Admin: 05/15/16 08:45 Dose: 2,400 mg - Objective Vital Signs: Vital Signs Temperature 98.3 F 05/15/16 09:00 Pulse Rate 72 05/15/16 09:00 Respiratory Rate 18 05/15/16 09:00 Blood Pressure 128/80 05/15/16 09:00 O2 Sat by Pulse Oximetry (%) 96 05/15/16 09:00 Constitutional: Yes: No Distress, Calm Cardiovascular: Yes: Regular Rate and Rhythm Respiratory: Yes: Regular, CTA Bilaterally Gastrointestinal: Yes: Normal Bowel Sounds, Soft Musculoskeletal: Yes: Other Extremities: Yes: Other Neurological: Yes: Alert, Oriented Psychiatric: Yes: Alert Labs: CBC, BMP 05/14/16 03:20 05/14/16 03:20 INR, PTT INR 1.08 (0.82-1.09) 05/13/16 09:30 Assessment/Plan patient evaluated i am worried that the patient might have deeper infection.i agree with mri.The wound though looks good and dried patient received abx after looking at patients esr i am going to start abx will await for cx report Problem List - Problem (1) Diabetic foot ulcer (2) DM (diabetes mellitus), type 2 with renal complications (3) ESRD (end stage renal disease) on dialysis (4) CAD (coronary artery disease) (5) HLD (hyperlipidemia) (6) HTN (hypertension) r/o osteo plan continue current abx patient for surgery today
[2016-05-15 13:43] LABS: CALCIUM 9.2 mg/dL (8.5-10.1)
--- NOTE | 2016-05-15 13:46 | PN ---
Progress Note, Physician History of Present Illness: Pt seen and examined at bedside. She is awake and alert. She denies shortness of breath. She tolerated HD yesterday. - Current Medication List Current Medications: Active Medications Albuterol Sulfate (Ventolin 0.083% Nebulizer Soln -) 1 amp NEB Q4H PRN PRN Reason: SHORT OF BREATH/WHEEZING Carvedilol (Coreg -) 25 mg PO BID [facility] Last Admin: 05/15/16 08:59 Dose: 25 mg Clindamycin HCl (Cleocin -) 300 mg PO Q6HPO [facility] Last Admin: 05/15/16 06:00 Dose: 300 mg Clopidogrel Bisulfate (Plavix -) 75 mg PO DAILY [facility] Last Admin: 05/15/16 08:59 Dose: Not Given Collagenase (Santyl -) 1 applic TP DAILY [facility] Last Admin: 05/15/16 09:02 Dose: 1 applic Heparin Sodium (Porcine) (Heparin -) 5,000 unit SQ BID [facility] Last Admin: 05/15/16 08:59 Dose: Not Given Ceftriaxone Sodium (Rocephin 1gm Ivpb (Pre-Docked)) 50 mls @ 100 mls/hr IVPB DAILY [facility] Last Admin: 05/15/16 09:01 Dose: 100 mls/hr Insulin Aspart (Novolog Vial Sliding Scale -) 1 vial SQ ACHS [facility] PRN Reason: Protocol Last Admin: 05/15/16 06:04 Dose: 2 units Ondansetron HCl (Zofran Injection) 4 mg IVPB Q6H PRN PRN Reason: NAUSEA Oxycodone HCl (Roxicodone -) 5 mg PO Q4H PRN PRN Reason: PAIN Pantoprazole Sodium (Protonix -) 40 mg PO BID [facility] Last Admin: 05/15/16 09:05 Dose: 40 mg Sevelamer Carbonate (Renvela -) 2,400 mg PO TIDCM [facility] Last Admin: 05/15/16 08:45 Dose: 2,400 mg - Objective Vital Signs: Vital Signs Temperature 98.3 F 05/15/16 09:00 Pulse Rate 72 05/15/16 09:00 Respiratory Rate 18 05/15/16 09:00 Blood Pressure 128/80 05/15/16 09:00 O2 Sat by Pulse Oximetry (%) 96 05/15/16 09:00 Constitutional: Yes: Calm Eyes: Yes: Conjunctiva Clear Cardiovascular: Yes: S1, S2 Respiratory: Yes: CTA Bilaterally Gastrointestinal: Yes: Soft Genitourinary: Yes: WNL Edema: No Wound/Incision: Yes: Dressing Dry and Intact Neurological: Yes: Oriented Psychiatric: Yes: Oriented Labs: CBC, BMP 05/14/16 03:20 INR, PTT INR 1.08 (0.82-1.09) 05/13/16 09:30 Problem List - Problems (1) CAD (coronary artery disease) Code(s): I25.10 - ATHSCL HEART DISEASE OF [place] CORONARY ARTERY W/O ANG PCTRS (2) DM (diabetes mellitus), type 2 with renal complications Code(s): E11.29 - TYPE 2 DIABETES MELLITUS W OTH DIABETIC KIDNEY COMPLICATION Qualifiers: Qualified Code(s): E11.22 - Type 2 diabetes mellitus with diabetic chronic kidney disease; N18.1 - Chronic kidney disease, stage 1; Z79.4 - manager terminal (current) use of insulin (3) ESRD (end stage renal disease) on dialysis Code(s): N18.6 - END STAGE RENAL DISEASE Z99.2 - DEPENDENCE ON RENAL DIALYSIS (4) HLD (hyperlipidemia) Code(s): E78.5 - HYPERLIPIDEMIA, UNSPECIFIED (5) HTN (hypertension) Code(s): I10 - ESSENTIAL (PRIMARY) HYPERTENSION Qualifiers: Qualified Code(s): I10 - Essential (primary) hypertension Assessment/Plan Current Medications Generic Name Dose Route Start Last Admin Trade Name Freq PRN Reason Stop Dose Admin Albuterol Sulfate 1 amp 05/12/16 22:11 Ventolin 0.083% Nebulizer Soln - NEB Q4H PRN SHORT OF BREATH/WHEEZING Carvedilol 25 mg 05/13/16 10:00 05/15/16 08:59 Coreg - PO 25 mg BID [facility] Administration Clindamycin HCl 300 mg 05/13/16 18:00 05/15/16 06:00 Cleocin - PO 300 mg Q6HPO [facility] Administration Clopidogrel Bisulfate 75 mg 05/13/16 10:00 05/15/16 08:59 Plavix - PO Not Given DAILY [facility] Collagenase 1 applic 05/14/16 10:00 05/15/16 09:02 Santyl - TP 1 applic DAILY [facility] Administration Heparin Sodium (Porcine) 5,000 unit 05/13/16 10:00 05/15/16 08:59 Heparin - SQ Not Given BID [facility] Ceftriaxone Sodium 50 mls @ 100 mls/hr 05/13/16 14:45 05/15/16 09:01 Rocephin 1gm Ivpb (Pre-Docked) IVPB 100 mls/hr DAILY [facility] Administration Insulin Aspart 1 vial 05/13/16 07:00 05/15/16 06:04 Novolog Vial Sliding Scale - SQ 2 units ACHS [facility] Administration Protocol Ondansetron HCl 4 mg 05/12/16 22:11 Zofran Injection IVPB Q6H PRN NAUSEA Oxycodone HCl 5 mg 05/12/16 22:11 Roxicodone - PO Q4H PRN PAIN Pantoprazole Sodium 40 mg 05/13/16 10:00 05/15/16 09:05 Protonix - PO 40 mg BID [facility] Administration Sevelamer Carbonate 2,400 mg 05/13/16 08:00 05/15/16 08:45 Renvela - PO 2,400 mg TIDCM [facility] Administration Impression 1. ESRD 2. DFU 3. DM 4. CAD 5. GERD Plan - HD today, pt is tolerating this far - abx per ID - follow up imaging - cont current meds - cont renvela - podiatry follow up - cont wound care Dr Ricahrds
[2016-05-15 14:03] LABS: CREATININE 9.2 mg/dL (0.55-1.02)
--- NOTE | 2016-05-15 14:04 | PN ---
Teaching Attending Note Name of Resident: Stephanie Smyth ATTENDING PHYSICIAN STATEMENT I saw and evaluated the patient. I reviewed the resident's note and discussed the case with the resident. I agree with the resident's findings and plan as documented. SUBJECTIVE: Patient has no complaints. OBJECTIVE: Vital Signs Period Temp Pulse Resp BP Sys/Canales Pulse Ox Last 24 Hr 98.3 F-98.8 F 69-102 16-20 86-140/37-80 96-96 GENERAL: The patient is awake, alert, and fully oriented, in no acute distress. LUNGS: Breath sounds equal, clear to auscultation bilaterally, no wheezes, no crackles, no accessory muscle use. HEART: Regular rate and rhythm, S1, S2 without murmur, rub or gallop. ABDOMEN: Obese, soft, nontender, nondistended, normoactive bowel sounds, no guarding, no rebound, no hepatosplenomegaly, no masses. EXTREMITIES: 2+ pulses, warm, well-perfused, no edema. Plantar ulcer of left 1st toe without purulent drainage. ASSESSMENT AND PLAN: This is a 36-year-old woman with a history of type 2 DM, ESRD on HD, CAD, stent , HTN, hyperlipidemia who was admitted with an infected diabetic foot ulcer. 1. Infected diabetic ulcer of left foot - Clindamycin, Vancomycin given in ER - On Rocephin, Clindamycin - Wound culture growing MRSA, group B Strep, Corynebacterium - ESR is 113 - MRI today to evaluate for osteomyelitis - Plan for debridement - Continue wound care 2. Type 2 diabetes mellitus - Continue Novolog sliding scale 3. ESRD on dialysis - Nephrology consult for HD - Continue Renvela 4. CAD, history of stent - Continue Coreg, Plavix 5. Hyperlipidemia - Unable to tolerate statins 6. Hypertension - Continue Coreg 7. Morbid obesity with BMI 42.1 Problem List - Problems (1) Morbid obesity with BMI of 40.0-44.9, adult Code(s): E66.01 - MORBID (SEVERE) OBESITY DUE TO EXCESS CALORIES Z68.41 - BODY MASS INDEX (BMI) 40.0-44.9, ADULT (2) Diabetic foot ulcer with osteomyelitis Code(s): E11.621 - TYPE 2 DIABETES MELLITUS WITH FOOT ULCER E11.69 - TYPE 2 DIABETES MELLITUS WITH OTHER SPECIFIED COMPLICATION L97.509 - NON-PRESSURE CHRONIC ULCER OTH PRT UNSP FOOT W UNSP SEVERITY M86.9 - OSTEOMYELITIS, UNSPECIFIED (3) CAD (coronary artery disease) Code(s): I25.10 - ATHSCL HEART DISEASE OF [place] CORONARY ARTERY W/O ANG PCTRS (4) DM (diabetes mellitus), type 2 with renal complications Code(s): E11.29 - TYPE 2 DIABETES MELLITUS W OTH DIABETIC KIDNEY COMPLICATION Qualifiers: Diabetes mellitus complication detail: with chronic kidney disease Diabetes mellitus terminal worker insulin use: unspecified fpc insulin use status Chronic kidney disease stage: unspecified stage Qualified Code (s): E11.22 - Type 2 diabetes mellitus with diabetic chronic kidney disease; N18.1 - Chronic kidney disease, stage 1; Z79.4 - long term care pharmacist (current) use of insulin (5) ESRD (end stage renal disease) on dialysis Code(s): N18.6 - END STAGE RENAL DISEASE Z99.2 - DEPENDENCE ON RENAL DIALYSIS (6) HLD (hyperlipidemia) Code(s): E78.5 - HYPERLIPIDEMIA, UNSPECIFIED (7) HTN (hypertension) Code(s): I10 - ESSENTIAL (PRIMARY) HYPERTENSION Qualifiers: Hypertension type: essential hypertension Qualified Code(s): I10 - Essential (primary) hypertension (8) Stented coronary artery Code(s): Z95.5 - PRESENCE OF CORONARY ANGIOPLASTY IMPLANT AND GRAFT
--- NOTE | 2016-05-15 15:25 | EKG ---
Test Reason : Blood Pressure : / mmHG Vent. Rate : 075 BPM Atrial Rate : 075 BPM P-R Int : 158 ms QRS Dur : 096 ms QT Int : 376 ms P-R-T Axes : 017 047 060 degrees QTc Int : 419 ms NORMAL SINUS RHYTHM NORMAL ECG WHEN COMPARED WITH ECG OF 17-JAN-2016 09:21, NO SIGNIFICANT CHANGE WAS FOUND Confirmed by JOSÉ ANTONIO FLORES MD ([id number]) on 05/15/2016 3:24:42 PM Referred By: Confirmed By:JOSÉ ANTONIO FLORES MD
[2016-05-15] MEDS ORDERED: LIDOCAINE HCL 1%, 10 MG/ML (20ML VIAL) ONE (16:24)
[2016-05-15] MEDS ORDERED: PROPOFOL 20 ML ONE (16:58)
[2016-05-15] MEDS ORDERED: MIDAZOLAM HCL 2 MG/2 ML SINGLE DOSE VIAL ONE ×2 (16:58→17:22)
[2016-05-15] MEDS ORDERED: LIDOCAINE HCL 1%, 10 MG/ML (20ML VIAL) IJ ONE (17:18)
[2016-05-15] MEDS ORDERED: BACITRACIN 50,000 UNITS VIAL TP ONE (17:48)
--- NOTE | 2016-05-15 18:12 | OP ---
Operative Note - Note: Operative Date: 05/15/16 Pre-Operative Diagnosis: L DM foot ulcer with osteomyelitis Operation: L foot ulcer debridement with bone biopsy Findings: Soft, fragmented bone at base of proximal phalanx indicative of acute osteomyelitis. 1st interspace ulcer probing to bone Post-Operative Diagnosis: Same as Pre-op Surgeon: Julien Palomino Anesthesia: Local, MAC Specimens Removed: Bone and soft tissue, left foot Estimated Blood Loss (mls): 10 Instrument used (Debridements only): #15 blade scalpel and curette Operative Report Dictated: Yes
[2016-05-15] MEDS ORDERED: ONDANSETRON 4 MG/2 ML VIAL IVPUSH PRN (18:14)
[2016-05-15] MEDS ORDERED: SODIUM CHLORIDE 1,000 ML IV SCH (18:15)
[2016-05-15] MEDS ORDERED: oxyCODONE HCL 5 MG TABLET PO PRN (18:16)
[2016-05-15] MEDS ORDERED: ALBUTEROL SO4 0.083% IH SOL 2.5 MG/3 ML VIAL.NEB. NEB PRN (18:16)
[2016-05-15] MEDS ORDERED: ONDANSETRON 4 MG/2 ML VIAL IVPB PRN (18:16)
[2016-05-15] MEDS: oxyCODONE HCL 5 MG TABLET PO PRN (20:41)
[2016-05-16] MEDS: CLINDAMYCIN HCL 150 MG CAPSULE (FP) PO SCH ×5 (00:36→17:53)
[2016-05-16] MEDS: oxyCODONE HCL 5 MG TABLET PO PRN ×2 (02:36→13:46)
[2016-05-16 06:06] LABS: HEP B SURFACE AB Reactive (.)
[2016-05-16] MEDS: INSULIN SLIDING SCALE (NOVOLOG) 1 VIAL SQ SCH ×4 (06:26→21:45)
--- NOTE | 2016-05-16 07:06 | OP ---
DATE OF OPERATION: 05/15/2016 PREOPERATIVE DIAGNOSIS: Left diabetic foot ulcer with osteomyelitis. POSTOPERATIVE DIAGNOSIS: Left diabetic foot ulcer with osteomyelitis. PROCEDURE: Left foot ulcer debridement with bone biopsy. SURGEON: Julien Palomino DPM STITCH BURNISHER: None. ANESTHESIA: Local with IV sedation. HEMOSTASIS: None. ESTIMATED BLOOD LOSS: Minimal. PATHOLOGY: Bone, left great toe. COMPLICATIONS: None. DESCRIPTION OF PROCEDURE: The patient was brought to the operating room and placed on the operating table in the supine position. I elected to not use hemostasis during the course of this procedure. Following the induction of IV sedation, local anesthesia was achieved utilizing 10 mL of 1% lidocaine plain. The left foot was then scrubbed, prepped, and draped in the usual aseptic fashion, and the procedure began. Attention was directed to the left great toe. Right plantar hallux ulcer in addition to a left 1st interspace ulcer probing to bone was visualized and appreciated. I begin the procedure by performing a sharp excisional debridement to the level of subcutaneous tissues utilizing a combination of sterile 15 blade and curette. The fibrotic fluff tissue was subsequently removed and sent to Pathology for analysis. The remaining tissue was granular, bleeding, and viable. I sent soft tissue for pathology for analysis. The surgical site was copiously irrigated with sterile saline mixed with bacitracin. Of note, I inspected the ulcer bed, and thee was probing down to the proximal phalanx of the great toe. Next, I directed my attention to the left great toe dorsally, where a 1.5-cm linear longitudinal incision was made. The incision was deepened using a curved hemostat down to bone. A linear periosteal incision was made, and the base of the proximal phalanx was palpated. Next, a Jamshidi bone biopsy core was introduced into the base of the proximal phalanx. The bone was extremely soft and fragmented, indicative of an acute osteomyelitis procedure. Once the core was removed, a small piece of bone was subsequently removed from the operative site. This piece of bone was sent for both bone culture and bone pathology. A soft tissue culture was also appropriately obtained in the 1st interspace. The surgical sites were copiously irrigated with sterile saline mixed with bacitracin. The dorsal incision that was coapted and maintained utilizing 3-0 nylon in a simple interrupted suture fashion. The incision was covered with Xeroform and a sterile compressive dressing was applied to the left foot consisting of sterile gauze, Leonidas, Kerlix, and an Omega wrap. The patient tolerated the procedure and anesthesia well without complications. She was transferred from the operating room to the recovery unit with vital signs stable and neurovasculature intact to the left foot. ZAYDA [id number] cc: [facility]
[2016-05-16] MEDS: SEVELAMER CARBONATE 800 MG TAB (FP) PO SCH ×4 (08:47→17:52)
--- NOTE | 2016-05-16 08:57 | PN ---
Physical Exam: SUBJECTIVE: Patient seen and examined No complaints. ambulating with walker without falls or pain, weight bearing on foot. Tolerated procedure well yesterday. awaiting HD today. prefers to go to SNF if IV fpc abx are required. denies chest pain, palpitations, fever, n/v. OBJECTIVE: Vital Signs Period Temp Pulse Resp BP Sys/Canales Pulse Ox Last 24 Hr 97.5 F-98.4 F 68-73 16-20 115-142/59-80 96-100 GENERAL: The patient is awake, alert, and fully oriented, in no acute distress. ENT: moist mucous membranes. LUNGS: Breath sounds equal, clear to auscultation bilaterally, no wheezes, no crackles, no accessory muscle use. HEART: Regular rate and rhythm, S1, S2 without murmur, rub or gallop. bruit heard in right 2nd intercostal space ABDOMEN: obese, Soft, nontender, nondistended, normoactive bowel sounds EXTREMITIES: 2+ pulses, warm, well-perfused, right foot wnl. left foot wrapped in cdi dressing. Laboratory Results - last 24 hr 05/14/16 05/14/16 05/15/16 03:20 03:20 12:02 Sodium Potassium Chloride Carbon Dioxide Anion Gap BUN Creatinine POC Glucometer 249 Random Glucose Calcium Hepatitis A Ab Total Negative Hep Bs Antigen Negative Hep Bs Antibody Reactive Hep B Core Total Ab Negative Hepatitis C Antibody 0.1 05/15/16 05/15/16 05/16/16 12:22 21:21 06:13 Sodium 135 L Potassium 4.1 Chloride 94 L Carbon Dioxide 29 D Anion Gap 12 BUN 43 H D Creatinine 9.2 H* D POC Glucometer 210 191 Random Glucose 244 H D Calcium 9.2 Hepatitis A Ab Total Hep Bs Antigen Hep Bs Antibody Hep B Core Total Ab Hepatitis C Antibody Active Medications Generic Name Dose Route Start Last Admin Trade Name Freq PRN Reason Stop Dose Admin Albuterol Sulfate 1 amp 05/15/16 18:16 Ventolin 0.083% Nebulizer Soln - NEB Q4H PRN SHORT OF BREATH/WHEEZING Carvedilol 25 mg 05/15/16 22:00 05/15/16 22:16 Coreg - PO 25 mg BID [facility] Administration Clindamycin HCl 300 mg 05/16/16 00:00 05/16/16 05:50 Cleocin - PO 300 mg Q6HPO [facility] Administration Clopidogrel Bisulfate 75 mg 05/16/16 10:00 Plavix - PO DAILY [facility] Collagenase 1 applic 05/16/16 10:00 Santyl - TP DAILY [facility] Epoetin Hitesh 3,000 unit 05/16/16 13:46 Procrit - IVPUSH 05/16/16 13:47 ONCE ONE Heparin Sodium (Porcine) 5,000 unit 05/15/16 22:00 05/15/16 22:17 Heparin - SQ 5,000 unit BID [facility] Administration Ceftriaxone Sodium 50 mls @ 100 mls/hr 05/16/16 10:00 Rocephin 1gm Ivpb (Pre-Docked) IVPB DAILY [facility] Insulin Aspart 1 vial 05/15/16 22:00 05/16/16 06:26 Novolog Vial Sliding Scale - SQ 2 units ACHS [facility] Administration Protocol Ondansetron HCl 4 mg 05/15/16 18:16 Zofran Injection IVPB Q6H PRN NAUSEA Oxycodone HCl 5 mg 05/15/16 18:14 05/16/16 02:36 Roxicodone - PO 5 mg Q4H PRN Administration PAIN LEVEL 1-5 Pantoprazole Sodium 40 mg 05/15/16 22:00 05/15/16 22:16 Protonix - PO 40 mg BID [facility] Administration Sevelamer Carbonate 2,400 mg 05/16/16 08:00 05/16/16 08:47 Renvela - PO 2,400 mg TIDCM [facility] Administration ASSESSMENT/PLAN: 36 yr old woman with NIDDM, ESRD on HD (mwf), CAD s/p 1 stent admitted for diabetic foot ulcer. - bone cx pending to guide abx #Foot ulcer, acute osteomyelitis; wound culture with MRSA, diph/coryne/strep agalactaie group B - MRI pending - may not require, will d/c - Dr. Palomino consulted for podiatry - cleocin 300mg q6hr - rocephin 1gm daily -- started 05/14 - Dr. Mckinley consulted - wound dressing with santyl #DM - NISS - BGM ACHS #ESRD on [facility] dialysis - Dr. Richards - Renvela 2.4gm po tid #CAD s/p stent - plavix #HTN - coreg #Morbid obesity - chronic - renal/diabetic diet #Diet - diabetic renal #DVt: heparin BID Visit type - Emergency Visit Emergency Visit: No - New Patient This patient is new to me today: No - Critical Care Critical Care patient: No - Discharge Referral Referred to [facility] No
[2016-05-16] MEDS: CARVEDILOL 25 MG TABLET (FP) PO SCH ×2 (09:58→21:39)
[2016-05-16] MEDS: SODIUM HYPOCHLORITE 0.25%- 473 ML BULK BOTTLE TP SCH (09:59)
[2016-05-16] MEDS: CLOPIDOGREL BISULFATE 75 MG TABLET (FP) PO SCH ×2 (09:59→13:47)
[2016-05-16] MEDS: PANTOPRAZOLE 40 MG TABLET (FP) PO SCH ×3 (09:59→21:39)
[2016-05-16] MEDS: HEPARIN NA (PORCINE) 5,000 UNITS/ML 1ML VIAL SQ SCH ×2 (09:59→21:39)
[2016-05-16] MEDS: COLLAGENASE CLOSTRIDIUM HIST. 30 GRAMS TUBE TP SCH (10:00)
[2016-05-16] MEDS: CEFTRIAXONE 50 ML IVPB SCH ×2 (10:00→13:47)
[2016-05-16] MEDS ORDERED: EPOETIN ALFA 3,000 UNIT/1 ML ML IVPUSH ONE ×2 (10:30→13:46)
--- NOTE | 2016-05-16 10:52 | PN ---
Progress Note (short form) - Note Progress Note: Podiatry: Seen and evaluated at bedside in HD, NAD. Pain well controlled, denies F/V/N/C/ SOB/CP. S/p L great toe ulcer debridement and lavage, bone biopsy POD # 1. Afebrile, VSS. TAMIKA: L foot: dressing C/D/I, no active bleeding, no strikethrough. Sutures well coapted at dorsal aspect of hallux, no dehiscence. L plantar hallux ulcer granular, no probing, no purulence. 1st interspace ulcer mostly granular base, does probe deep, no purulence, no fluctuance, no soft tissue crepitus, no ascending cellulitis, no signs of active infection. OR Bone Cx: pending Wound Cx: coryn/dipth, MRSA, beta strep B Imp: 36 year old IDDM F s/p L great toe ulcer debridement with bone biopsy 1. C/w IV abx per ID 2. Dakin's gauze + DSD L foot 3. Partial WB L heel with surgical shoe 4. F/u Bone Cx 5. Recommend KAYLYNN placement given patient's non-compliance in the past. Does not have the family support necessary for wound healing. 6. Will follow. Ajay Palomino DPM
--- NOTE | 2016-05-16 11:52 | PN ---
Progress Note (short form) - Note Progress Note: Anesthesia postop note 36 y/o F s/p GA for I&D left foot POD#1, vss, aaox3, no complaints. No anesthesia complications.
--- NOTE | 2016-05-16 13:15 | PN ---
Progress Note, Physician History of Present Illness: Pt seen and examined at bedside. She is tolerating HD. She denies shortness of breath. She did get hypotensive on HD today. She did take her BP meds this morning. - Current Medication List Current Medications: Active Medications Albuterol Sulfate (Ventolin 0.083% Nebulizer Soln -) 1 amp NEB Q4H PRN PRN Reason: SHORT OF BREATH/WHEEZING Carvedilol (Coreg -) 25 mg PO BID [facility] Last Admin: 05/16/16 09:58 Dose: Not Given Clindamycin HCl (Cleocin -) 300 mg PO Q6HPO [facility] Last Admin: 05/16/16 05:50 Dose: 300 mg Clopidogrel Bisulfate (Plavix -) 75 mg PO DAILY [facility] Last Admin: 05/16/16 09:59 Dose: Not Given Collagenase (Santyl -) 1 applic TP DAILY [facility] Last Admin: 05/16/16 10:00 Dose: Not Given Heparin Sodium (Porcine) (Heparin -) 5,000 unit SQ BID [facility] Last Admin: 05/16/16 09:59 Dose: Not Given Ceftriaxone Sodium (Rocephin 1gm Ivpb (Pre-Docked)) 50 mls @ 100 mls/hr IVPB DAILY [facility] Last Admin: 05/16/16 10:00 Dose: Not Given Insulin Aspart (Novolog Vial Sliding Scale -) 1 vial SQ ACHS [facility] PRN Reason: Protocol Last Admin: 05/16/16 06:26 Dose: 2 units Ondansetron HCl (Zofran Injection) 4 mg IVPB Q6H PRN PRN Reason: NAUSEA Oxycodone HCl (Roxicodone -) 5 mg PO Q4H PRN PRN Reason: PAIN LEVEL 1-5 Last Admin: 05/16/16 02:36 Dose: 5 mg Pantoprazole Sodium (Protonix -) 40 mg PO BID [facility] Last Admin: 05/16/16 09:59 Dose: Not Given Sevelamer Carbonate (Renvela -) 2,400 mg PO TIDCM [facility] Last Admin: 05/16/16 08:47 Dose: 2,400 mg Sodium Hypochlorite (Dakin's Solution 0.25% (Half-Strength) -) 1 applic TP DAILY [facility] Last Admin: 05/16/16 09:59 Dose: Not Given - Objective Vital Signs: Vital Signs Temperature 98.6 F 05/16/16 10:00 Pulse Rate 71 05/16/16 10:35 Respiratory Rate 18 05/16/16 10:35 Blood Pressure 104/50 05/16/16 10:35 O2 Sat by Pulse Oximetry (%) 99 05/16/16 09:00 Constitutional: Yes: Calm Eyes: Yes: Conjunctiva Clear HENT: Yes: Atraumatic Neck: Yes: Supple Cardiovascular: Yes: S1, S2 Respiratory: Yes: CTA Bilaterally Gastrointestinal: Yes: Soft, Abdomen, Obese Genitourinary: Yes: WNL Edema: No Wound/Incision: Yes: Dressing Dry and Intact Neurological: Yes: Oriented Psychiatric: Yes: Oriented Labs: CBC, BMP 05/14/16 03:20 05/15/16 12:22 INR, PTT INR 1.08 (0.82-1.09) 05/13/16 09:30 Problem List - Problems (1) CAD (coronary artery disease) Code(s): I25.10 - ATHSCL HEART DISEASE OF [place] CORONARY ARTERY W/O ANG PCTRS (2) DM (diabetes mellitus), type 2 with renal complications Code(s): E11.29 - TYPE 2 DIABETES MELLITUS W OTH DIABETIC KIDNEY COMPLICATION Qualifiers: Diabetes mellitus complication detail: with chronic kidney disease Diabetes mellitus prison insulin use: unspecified terminologist insulin use status Chronic kidney disease stage: unspecified stage Qualified Code (s): E11.22 - Type 2 diabetes mellitus with diabetic chronic kidney disease; N18.1 - Chronic kidney disease, stage 1; Z79.4 - FPC (current) use of insulin (3) ESRD (end stage renal disease) on dialysis Code(s): N18.6 - END STAGE RENAL DISEASE Z99.2 - DEPENDENCE ON RENAL DIALYSIS (4) HLD (hyperlipidemia) Code(s): E78.5 - HYPERLIPIDEMIA, UNSPECIFIED (5) HTN (hypertension) Code(s): I10 - ESSENTIAL (PRIMARY) HYPERTENSION Qualifiers: Hypertension type: essential hypertension Qualified Code(s): I10 - Essential (primary) hypertension Assessment/Plan Current Medications Generic Name Dose Route Start Last Admin Trade Name Freq PRN Reason Stop Dose Admin Albuterol Sulfate 1 amp 05/15/16 18:16 Ventolin 0.083% Nebulizer Soln - NEB Q4H PRN SHORT OF BREATH/WHEEZING Carvedilol 25 mg 05/15/16 22:00 05/16/16 09:58 Coreg - PO Not Given BID [facility] Clindamycin HCl 300 mg 05/16/16 00:00 05/16/16 13:14 Cleocin - PO Not Given Q6HPO [facility] Clopidogrel Bisulfate 75 mg 05/16/16 10:00 05/16/16 09:59 Plavix - PO Not Given DAILY [facility] Collagenase 1 applic 05/16/16 10:00 05/16/16 10:00 Santyl - TP Not Given DAILY [facility] Heparin Sodium (Porcine) 5,000 unit 05/15/16 22:00 05/16/16 09:59 Heparin - SQ Not Given BID [facility] Ceftriaxone Sodium 50 mls @ 100 mls/hr 05/16/16 10:00 05/16/16 10:00 Rocephin 1gm Ivpb (Pre-Docked) IVPB Not Given DAILY [facility] Insulin Aspart 1 vial 05/15/16 22:00 05/16/16 13:14 Novolog Vial Sliding Scale - SQ Not Given ACHS [facility] Protocol Ondansetron HCl 4 mg 05/15/16 18:16 Zofran Injection IVPB Q6H PRN NAUSEA Oxycodone HCl 5 mg 05/15/16 18:14 05/16/16 02:36 Roxicodone - PO 5 mg Q4H PRN Administration PAIN LEVEL 1-5 Pantoprazole Sodium 40 mg 05/15/16 22:00 05/16/16 09:59 Protonix - PO Not Given BID [facility] Sevelamer Carbonate 2,400 mg 05/16/16 08:00 05/16/16 13:15 Renvela - PO Not Given TIDCM [facility] Sodium Hypochlorite 1 applic 05/16/16 10:00 05/16/16 09:59 Dakin's Solution 0.25% (Half-Strength) - TP Not Given DAILY [facility] Impression 1. ESRD 2. DFU 3. DM 4. CAD 5. GERD Plan - pt became hypotensive on HD, please hold BP meds on days of dialysis - cont wound care - ID follow up for antibiotics and duration - BP is now stable - cont current meds - cont renvela - podiatry follow up - pt is s/p I and D of left foot Dr Richards
--- NOTE | 2016-05-16 14:29 | PN ---
Teaching Attending Note Name of Resident: Stephanie Smyth ATTENDING PHYSICIAN STATEMENT I saw and evaluated the patient. I reviewed the resident's note and discussed the case with the resident. I agree with the resident's findings and plan as documented. Has no new complains Vital Signs Temperature 98.6 F 05/16/16 10:00 Pulse Rate 85 05/16/16 12:50 Respiratory Rate 18 05/16/16 12:50 Blood Pressure 122/65 05/16/16 12:50 O2 Sat by Pulse Oximetry (%) 99 05/16/16 09:00 CBCD WBC 8.5 K/mm3 (4.0-10.0) 05/14/16 03:20 RBC 3.57 M/mm3 (3.60-5.2) L 05/14/16 03:20 Hgb 10.2 GM/dL (10.7-15.3) L 05/14/16 03:20 Hct 30.2 % (32.4-45.2) L 05/14/16 03:20 MCV 84.8 fl (80-96) 05/14/16 03:20 MCHC 33.7 g/dl (32.0-36.0) 05/14/16 03:20 RDW 14.7 % (11.6-15.6) 05/14/16 03:20 Plt Count 237 K/MM3 (134-434) 05/14/16 03:20 MPV 9.1 fl (7.5-11.1) 05/14/16 03:20 CMP Sodium 135 mmol/L (136-145) L 05/15/16 12:22 Potassium 4.1 mmol/L (3.5-5.1) 05/15/16 12:22 Chloride 94 mmol/L (98-107) L 05/15/16 12:22 Carbon Dioxide 29 mmol/L (21-32) D 05/15/16 12:22 Anion Gap 12 (8-16) 05/15/16 12:22 BUN 43 mg/dL (7-18) H D 05/15/16 12:22 Creatinine 9.2 mg/dL (0.55-1.02) H* D 05/15/16 12:22 Creat Clearance w eGFR 3.95 (>60) 05/13/16 07:00 Random Glucose 244 mg/dL (74-106) H D 05/15/16 12:22 Calcium 9.2 mg/dL (8.5-10.1) 05/15/16 12:22 Total Bilirubin 0.4 mg/dL (0.2-1.0) 05/13/16 07:00 AST 12 U/L (15-37) L 05/13/16 07:00 ALT 8 U/L (12-78) L D 05/13/16 07:00 Alkaline Phosphatase 102 U/L (45-117) 05/13/16 07:00 Total Protein 7.6 g/dl (6.4-8.2) 05/13/16 07:00 Albumin 3.0 g/dl (3.4-5.0) L 05/13/16 07:00 Current Medications Generic Name Dose Route Start Last Admin Trade Name Freq PRN Reason Stop Dose Admin Albuterol Sulfate 1 amp 05/15/16 18:16 Ventolin 0.083% Nebulizer Soln - NEB Q4H PRN SHORT OF BREATH/WHEEZING Carvedilol 25 mg 05/15/16 22:00 05/16/16 09:58 Coreg - PO Not Given BID [facility] Clindamycin HCl 300 mg 05/16/16 00:00 05/16/16 13:46 Cleocin - PO 300 mg Q6HPO [facility] Administration Clopidogrel Bisulfate 75 mg 05/16/16 10:00 05/16/16 13:47 Plavix - PO 75 mg DAILY [facility] Administration Collagenase 1 applic 05/16/16 10:00 05/16/16 10:00 Santyl - TP Not Given DAILY [facility] Heparin Sodium (Porcine) 5,000 unit 05/15/16 22:00 05/16/16 09:59 Heparin - SQ Not Given BID [facility] Ceftriaxone Sodium 50 mls @ 100 mls/hr 05/16/16 10:00 05/16/16 13:47 Rocephin 1gm Ivpb (Pre-Docked) IVPB 100 mls/hr DAILY [facility] Administration Insulin Aspart 1 vial 05/15/16 22:00 05/16/16 13:14 Novolog Vial Sliding Scale - SQ Not Given ACHS [facility] Protocol Ondansetron HCl 4 mg 05/15/16 18:16 Zofran Injection IVPB Q6H PRN NAUSEA Oxycodone HCl 5 mg 05/15/16 18:14 05/16/16 13:46 Roxicodone - PO 5 mg Q4H PRN Administration PAIN LEVEL 1-5 Pantoprazole Sodium 40 mg 05/15/16 22:00 05/16/16 13:47 Protonix - PO 40 mg BID [facility] Administration Sevelamer Carbonate 2,400 mg 05/16/16 08:00 05/16/16 13:47 Renvela - PO 2,400 mg TIDCM [facility] Administration Sodium Hypochlorite 1 applic 05/16/16 10:00 05/16/16 09:59 Dakin's Solution 0.25% (Half-Strength) - TP Not Given DAILY [facility] Home Medications Medication Instructions Recorded Carvedilol [Coreg -] 25 mg PO BID tablet 01/19/16 Clopidogrel Bisulfate [Plavix -] 75 mg PO DAILY tablet 01/19/16 Pantoprazole Sodium [Protonix -] 40 mg PO BID tablet.ec 01/19/16 Sevelamer Carbonate [Renvela -] 2,400 mg PO TIDCM tab 01/19/16 Microbiology 05/12/16 23:30 Foot - Left Instep Gram Stain - Final 05/12/16 23:30 Foot - Left Instep Wound Culture - Preliminary Mr S Aureus Diphtheroid/Corynebacterium Strep Agalactiae Group B Patient refused physical examination ASSESSMENT AND PLAN: This is a 36-year-old woman with a history of type 2 DM, ESRD on HD, CAD, stent , HTN, hyperlipidemia who was admitted with an infected diabetic foot ulcer. # Infected diabetic ulcer of left foot on Clindamycin IV, s/p Vancomycin given in ER now on IV Rocephin, and Clindamycin now; Wound culture growing MRSA, group B Strep.Agalactiae, Corynebacterium; ESR is 113 ; s/p debridement by Day Care Director on 05/15/2016 ;continue wound care. As per Day Care Director patient has acute osteomyelitis written on his operative report ; will continue IV antibiotic, will wait ID recommendation for treatment plan. will wait for bone Bx result as well. # T2DM on Novolog sliding scale with coverage # ESRD on dialysis ,was getting dialized today. Nephrology consult for HD ,on Renvela # CAD, history of stent continue Coreg, Plavix # Hyperlipidemia Unable to tolerate statins # Hypertension continue Coreg # Morbid obesity with BMI 42.1 Dvt Px: SCDs
--- NOTE | 2016-05-16 15:23 | PN ---
Progress Note, Physician History of Present Illness: patient post op podiatry note noted - Current Medication List Current Medications: Active Medications Albuterol Sulfate (Ventolin 0.083% Nebulizer Soln -) 1 amp NEB Q4H PRN PRN Reason: SHORT OF BREATH/WHEEZING Carvedilol (Coreg -) 25 mg PO BID [facility] Last Admin: 05/16/16 09:58 Dose: Not Given Clindamycin HCl (Cleocin -) 300 mg PO Q6HPO [facility] Last Admin: 05/16/16 13:46 Dose: 300 mg Clopidogrel Bisulfate (Plavix -) 75 mg PO DAILY [facility] Last Admin: 05/16/16 13:47 Dose: 75 mg Collagenase (Santyl -) 1 applic TP DAILY [facility] Last Admin: 05/16/16 10:00 Dose: Not Given Heparin Sodium (Porcine) (Heparin -) 5,000 unit SQ BID [facility] Last Admin: 05/16/16 09:59 Dose: Not Given Insulin Aspart (Novolog Vial Sliding Scale -) 1 vial SQ ACHS [facility] PRN Reason: Protocol Last Admin: 05/16/16 13:14 Dose: Not Given Ondansetron HCl (Zofran Injection) 4 mg IVPB Q6H PRN PRN Reason: NAUSEA Oxycodone HCl (Roxicodone -) 5 mg PO Q4H PRN PRN Reason: PAIN LEVEL 1-5 Last Admin: 05/16/16 13:46 Dose: 5 mg Pantoprazole Sodium (Protonix -) 40 mg PO BID [facility] Last Admin: 05/16/16 13:47 Dose: 40 mg Sevelamer Carbonate (Renvela -) 2,400 mg PO TIDCM [facility] Last Admin: 05/16/16 13:47 Dose: 2,400 mg Sodium Hypochlorite (Dakin's Solution 0.25% (Half-Strength) -) 1 applic TP DAILY [facility] Last Admin: 05/16/16 09:59 Dose: Not Given - Objective Vital Signs: Vital Signs Temperature 98.4 F 05/16/16 15:11 Pulse Rate 78 05/16/16 15:11 Respiratory Rate 20 05/16/16 15:11 Blood Pressure 126/63 05/16/16 15:11 O2 Sat by Pulse Oximetry (%) 99 05/16/16 09:00 Constitutional: Yes: No Distress, Calm Cardiovascular: Yes: Regular Rate and Rhythm Respiratory: Yes: Regular, CTA Bilaterally Gastrointestinal: Yes: Normal Bowel Sounds, Soft Musculoskeletal: Yes: Other Extremities: Yes: Other Wound/Incision: Yes: Dressing Dry and Intact Neurological: Yes: Alert, Oriented Psychiatric: Yes: Alert, Oriented Labs: CBC, BMP 05/14/16 03:20 05/15/16 12:22 INR, PTT INR 1.08 (0.82-1.09) 05/13/16 09:30 Assessment/Plan t Problem List - Problem (1) Diabetic foot ulcer (2) DM (diabetes mellitus), type 2 with renal complications (3) ESRD (end stage renal disease) on dialysis (4) CAD (coronary artery disease) (5) HLD (hyperlipidemia) (6) HTN (hypertension) r/o osteo mrsa wound infection plan continue current abx wound cx noted will wait to see bone cx patient will have to be treated now as osteo probably will need iv will decide after the bone cx are back
[2016-05-16] MEDS ORDERED: INSULIN (NOVOLOG) ASPART 100 UNITS/ML 10ML VIAL ONE (17:34)
[2016-05-17] MEDS: INSULIN SLIDING SCALE (NOVOLOG) 1 VIAL SQ SCH ×4 (06:22→21:49)
[2016-05-17] MEDS: CLINDAMYCIN HCL 150 MG CAPSULE (FP) PO SCH ×6 (06:22→21:47)
[2016-05-17] MEDS: SEVELAMER CARBONATE 800 MG TAB (FP) PO SCH ×3 (07:31→18:10)
--- NOTE | 2016-05-17 08:55 | PN ---
Progress Note (short form) - Note Progress Note: Podiatry: Seen/evaluated at bedside, NAD. Denies F/V/N/C/SOB/CP. S/p L ulcer debridement , bone biopsy L great toe. Afebrile, VSS. TAMIKA: L foot: dressing C/D/I, no active bleeding. Post-surgical sutures well coapted dorsal hallux, no dehiscence. Plantar hallux ulcer clean, granular, no probing. 1st interspace wound is clean and granular, does probe deep, no purulence, no fluctuance, no ascending cellulitis, no signs of active infection OR Bone Cx: pending Imp: 36 year old DM F s/p L foot debridement of ulcer and bone biopsy 1. C/w IV abx per ID 2. Will need cylinder block mechanic IV abx and SNF placement 3. Dakin's gauze + DSD daily to L 1st interspace wound 4. Upon discharge, will f/u with me in [facility] [place] this 05/22/16. 5. No further intervention. Ajay Palomino DPM
[2016-05-17] MEDS: SODIUM HYPOCHLORITE 0.25%- 473 ML BULK BOTTLE TP SCH (09:28)
[2016-05-17] MEDS: PANTOPRAZOLE 40 MG TABLET (FP) PO SCH ×2 (09:28→21:47)
[2016-05-17] MEDS: HEPARIN NA (PORCINE) 5,000 UNITS/ML 1ML VIAL SQ SCH ×2 (09:28→21:48)
[2016-05-17] MEDS: CARVEDILOL 25 MG TABLET (FP) PO SCH ×2 (09:28→21:47)
[2016-05-17] MEDS: CLOPIDOGREL BISULFATE 75 MG TABLET (FP) PO SCH (09:29)
[2016-05-17] MEDS: COLLAGENASE CLOSTRIDIUM HIST. 30 GRAMS TUBE TP SCH (09:29)
--- NOTE | 2016-05-17 12:57 | PN ---
Physical Exam: SUBJECTIVE: Patient seen and examined no complaints, denies fever, chest pain, sob, chills. walking on heel only not on toes as per podiatry, awaiting surgical boot. OBJECTIVE: Vital Signs Period Temp Pulse Resp BP Sys/Canales Pulse Ox Last 24 Hr 97.9 F-99.2 F 75-80 20-20 126-156/63-90 100 GENERAL: The patient is awake, alert, and fully oriented, in no acute distress. EYES: blind right eye. eomi, left wnl. anicteric sclera ENT: moist mucous membranes. LUNGS: Breath sounds equal, clear to auscultation bilaterally, no wheezes, no crackles, no accessory muscle use. HEART: Regular rate and rhythm, S1, S2 without murmur. bruit in 2nd right intercostal space ABDOMEN: obese,Soft, nontender, nondistended, normoactive bowel sounds EXTREMITIES: 2+ pulses, warm, well-perfused, no edema. left foot with cdi in place. Laboratory Results - last 24 hr 05/16/16 05/16/16 05/17/16 17:27 21:42 06:21 POC Glucometer 191 240 211 05/17/16 11:35 POC Glucometer 239 Active Medications Generic Name Dose Route Start Last Admin Trade Name Freq PRN Reason Stop Dose Admin Albuterol Sulfate 1 amp 05/15/16 18:16 Ventolin 0.083% Nebulizer Soln - NEB Q4H PRN SHORT OF BREATH/WHEEZING Carvedilol 25 mg 05/15/16 22:00 05/17/16 09:28 Coreg - PO 25 mg BID [facility] Administration Clindamycin HCl 300 mg 05/16/16 00:00 05/17/16 11:33 Cleocin - PO 300 mg Q6HPO [facility] Administration Clopidogrel Bisulfate 75 mg 05/16/16 10:00 05/17/16 09:29 Plavix - PO 75 mg DAILY [facility] Administration Collagenase 1 applic 05/16/16 10:00 05/17/16 09:29 Santyl - TP Not Given DAILY [facility] Heparin Sodium (Porcine) 5,000 unit 05/15/16 22:00 05/17/16 09:28 Heparin - SQ 5,000 unit BID [facility] Administration Insulin Aspart 1 vial 05/15/16 22:00 05/17/16 11:35 Novolog Vial Sliding Scale - SQ 4 units ACHS [facility] Administration Protocol Ondansetron HCl 4 mg 05/15/16 18:16 Zofran Injection IVPB Q6H PRN [facility] Oxycodone HCl 5 mg 05/15/16 18:14 05/16/16 13:46 Roxicodone - PO 5 mg Q4H PRN Administration PAIN LEVEL 1-5 Pantoprazole Sodium 40 mg 05/15/16 22:00 05/17/16 09:28 Protonix - PO 40 mg BID [facility] Administration Sevelamer Carbonate 2,400 mg 05/16/16 08:00 05/17/16 11:32 Renvela - PO 2,400 mg TIDCM [facility] Administration Sodium Hypochlorite 1 applic 05/16/16 10:00 05/17/16 09:28 Dakin's Solution 0.25% (Half-Strength) - TP Not Given DAILY [facility] ASSESSMENT/PLAN: 36 yr old woman with NIDDM, ESRD on HD ([facility]), CAD s/p 1 stent admitted for diabetic foot ulcer. - bone cx pending to guide abx, pending placement vs discharge and outpatient followup #Foot ulcer, acute osteomyelitis; wound culture with MRSA, diph/coryne/strep agalactaie group B, pending bone cx - Dr. Palomino will follow in wound care clinic - cleocin 300mg q6hr -- started 05/14 - Dr. Mckinley consulted - wound dressing with santyl #DM - NISS - BGM ACHS #ESRD on [facility] dialysis - Dr. Richards - Renvela 2.4gm po tid #CAD s/p stent - plavix #HTN - coreg #Morbid obesity - chronic - renal/diabetic diet #Diet - diabetic renal #DVt: heparin BID Visit type - Emergency Visit Emergency Visit: No - New Patient This patient is new to me today: No - Critical Care Critical Care patient: No
--- NOTE | 2016-05-17 14:08 | PN ---
Progress Note, Physician History of Present Illness: patient stable no new issues - Current Medication List Current Medications: Active Medications Albuterol Sulfate (Ventolin 0.083% Nebulizer Soln -) 1 amp NEB Q4H PRN PRN Reason: SHORT OF BREATH/WHEEZING Carvedilol (Coreg -) 25 mg PO BID [facility] Last Admin: 05/17/16 09:28 Dose: 25 mg Clindamycin HCl (Cleocin -) 300 mg PO Q6HPO [facility] Last Admin: 05/17/16 11:33 Dose: 300 mg Clopidogrel Bisulfate (Plavix -) 75 mg PO DAILY [facility] Last Admin: 05/17/16 09:29 Dose: 75 mg Collagenase (Santyl -) 1 applic TP DAILY [facility] Last Admin: 05/17/16 09:29 Dose: Not Given Heparin Sodium (Porcine) (Heparin -) 5,000 unit SQ BID [facility] Last Admin: 05/17/16 09:28 Dose: 5,000 unit Insulin Aspart (Novolog Vial Sliding Scale -) 1 vial SQ ACHS [facility] PRN Reason: Protocol Last Admin: 05/17/16 11:35 Dose: 4 units Ondansetron HCl (Zofran Injection) 4 mg IVPB Q6H PRN PRN Reason: NAUSEA Oxycodone HCl (Roxicodone -) 5 mg PO Q4H PRN PRN Reason: PAIN LEVEL 1-5 Last Admin: 05/16/16 13:46 Dose: 5 mg Pantoprazole Sodium (Protonix -) 40 mg PO BID [facility] Last Admin: 05/17/16 09:28 Dose: 40 mg Sevelamer Carbonate (Renvela -) 2,400 mg PO TIDCM [facility] Last Admin: 05/17/16 11:32 Dose: 2,400 mg Sodium Hypochlorite (Dakin's Solution 0.25% (Half-Strength) -) 1 applic TP DAILY [facility] Last Admin: 05/17/16 09:28 Dose: Not Given - Objective Vital Signs: Vital Signs Temperature 98.8 F 05/17/16 08:29 Pulse Rate 76 05/17/16 08:29 Respiratory Rate 20 05/17/16 08:29 Blood Pressure 156/77 05/17/16 08:29 O2 Sat by Pulse Oximetry (%) 100 05/17/16 09:00 Constitutional: Yes: No Distress, Calm Neck: Yes: Supple, Trachea Midline Cardiovascular: Yes: Regular Rate and Rhythm Respiratory: Yes: Regular, CTA Bilaterally Gastrointestinal: Yes: Normal Bowel Sounds, Soft Musculoskeletal: Yes: WNL Extremities: Yes: Other Wound/Incision: Yes: Dressing Dry and Intact Neurological: Yes: Alert, Oriented Labs: CBC, BMP 05/14/16 03:20 05/15/16 12:22 INR, PTT INR 1.08 (0.82-1.09) 05/13/16 09:30 Assessment/Plan t Problem List - Problem (1) Diabetic foot ulcer (2) DM (diabetes mellitus), type 2 with renal complications (3) ESRD (end stage renal disease) on dialysis (4) CAD (coronary artery disease) (5) HLD (hyperlipidemia) (6) HTN (hypertension) r/o osteo mrsa wound infection plan continue current abx wound cx noted await for bone cx
--- NOTE | 2016-05-17 14:48 | PATH ---
Surgical Pathology Report Patient Name: AMERICO PERDOMO [facility]. Rec. #: [id number] /Age/Gender: 1980 (Age: 36) / F Account: [id number] Location: [facility] MED/SURG Taken: 05/15/2016 Received: 05/16/2016 Reported: 05/17/2016 Physicians: Julien Palomino DPM Specimen(s) Received A: DEBRIDEMENT TISSUE LEFT GREAT TOE B: BX BONE LEFT GREAT TOE Clinical History Left foot great toe ulcer, osteomyelitis Final Diagnosis A. SOFT TISSUE, LEFT GREAT TOE, DEBRIDEMENT: GANGRENOUS NECROSIS. B. BONE, LEFT GREAT TOE, BIOPSY: FRAGMENTS OF BONE WITH FOCAL NECROSIS INDICATIVE OF ACUTE OSTEOMYELITIS. Electronically Signed Khoa Fair M.D. Gross Description A. Received in formalin, labeled "debrided tissue left great toe" is a 1.5 x 1.0 x 0.3 cm aggregate of palacio-brown soft tissue fragments. The specimen is submitted in toto in one cassette. B. Received in formalin, labeled "bone left great toe" is a 0.3 x 0.3 x 0.1 cm aggregate of palacio bone fragments. The specimen is submitted in toto in one cassette, following decalcification. 05/16/201605/16/2016
--- NOTE | 2016-05-17 15:46 | PN ---
Progress Note, Physician History of Present Illness: Pt seen and examined at bedside. She is awake and alert. She says she feels better today. - Current Medication List Current Medications: Active Medications Albuterol Sulfate (Ventolin 0.083% Nebulizer Soln -) 1 amp NEB Q4H PRN PRN Reason: SHORT OF BREATH/WHEEZING Carvedilol (Coreg -) 25 mg PO BID [facility] Last Admin: 05/17/16 09:28 Dose: 25 mg Clindamycin HCl (Cleocin -) 300 mg PO Q6HPO [facility] Last Admin: 05/17/16 11:33 Dose: 300 mg Clopidogrel Bisulfate (Plavix -) 75 mg PO DAILY [facility] Last Admin: 05/17/16 09:29 Dose: 75 mg Collagenase (Santyl -) 1 applic TP DAILY [facility] Last Admin: 05/17/16 09:29 Dose: Not Given Heparin Sodium (Porcine) (Heparin -) 5,000 unit SQ BID [facility] Last Admin: 05/17/16 09:28 Dose: 5,000 unit Insulin Aspart (Novolog Vial Sliding Scale -) 1 vial SQ ACHS [facility] PRN Reason: Protocol Last Admin: 05/17/16 11:35 Dose: 4 units Ondansetron HCl (Zofran Injection) 4 mg IVPB Q6H PRN PRN Reason: NAUSEA Oxycodone HCl (Roxicodone -) 5 mg PO Q4H PRN PRN Reason: PAIN LEVEL 1-5 Last Admin: 05/16/16 13:46 Dose: 5 mg Pantoprazole Sodium (Protonix -) 40 mg PO BID [facility] Last Admin: 05/17/16 09:28 Dose: 40 mg Sevelamer Carbonate (Renvela -) 2,400 mg PO TIDCM [facility] Last Admin: 05/17/16 11:32 Dose: 2,400 mg Sodium Hypochlorite (Dakin's Solution 0.25% (Half-Strength) -) 1 applic TP DAILY [facility] Last Admin: 05/17/16 09:28 Dose: Not Given - Objective Vital Signs: Vital Signs Temperature 98.3 F 05/17/16 14:41 Pulse Rate 73 05/17/16 14:41 Respiratory Rate 20 05/17/16 14:41 Blood Pressure 121/58 05/17/16 14:41 O2 Sat by Pulse Oximetry (%) 100 05/17/16 09:00 Constitutional: Yes: Calm Neck: Yes: Supple Cardiovascular: Yes: S1, S2 Respiratory: Yes: CTA Bilaterally Gastrointestinal: Yes: Soft, Abdomen, Obese Genitourinary: Yes: WNL Extremities: Yes: Other (left arm fistula with thrill and bruit) Edema: No Neurological: Yes: Oriented Psychiatric: Yes: Oriented Labs: CBC, BMP 05/14/16 03:20 05/15/16 12:22 INR, PTT INR 1.08 (0.82-1.09) 05/13/16 09:30 Problem List - Problems (1) CAD (coronary artery disease) Code(s): I25.10 - ATHSCL HEART DISEASE OF [place] CORONARY ARTERY W/O ANG PCTRS (2) DM (diabetes mellitus), type 2 with renal complications Code(s): E11.29 - TYPE 2 DIABETES MELLITUS W OTH DIABETIC KIDNEY COMPLICATION Qualifiers: Diabetes mellitus complication detail: with chronic kidney disease Diabetes mellitus directory assistance operator insulin use: unspecified senior care insulin use status Chronic kidney disease stage: unspecified stage Qualified Code (s): E11.22 - Type 2 diabetes mellitus with diabetic chronic kidney disease; N18.1 - Chronic kidney disease, stage 1; Z79.4 - armature rewinder (current) use of insulin (3) ESRD (end stage renal disease) on dialysis Code(s): N18.6 - END STAGE RENAL DISEASE Z99.2 - DEPENDENCE ON RENAL DIALYSIS (4) HLD (hyperlipidemia) Code(s): E78.5 - HYPERLIPIDEMIA, UNSPECIFIED (5) HTN (hypertension) Code(s): I10 - ESSENTIAL (PRIMARY) HYPERTENSION Qualifiers: Hypertension type: essential hypertension Qualified Code(s): I10 - Essential (primary) hypertension Assessment/Plan Current Medications Generic Name Dose Route Start Last Admin Trade Name Freq PRN Reason Stop Dose Admin Albuterol Sulfate 1 amp 05/15/16 18:16 Ventolin 0.083% Nebulizer Soln - NEB Q4H PRN SHORT OF BREATH/WHEEZING Carvedilol 25 mg 05/15/16 22:00 05/17/16 09:28 Coreg - PO 25 mg BID [facility] Administration Clindamycin HCl 300 mg 05/16/16 00:00 05/17/16 11:33 Cleocin - PO 300 mg Q6HPO [facility] Administration Clopidogrel Bisulfate 75 mg 05/16/16 10:00 05/17/16 09:29 Plavix - PO 75 mg DAILY [facility] Administration Collagenase 1 applic 05/16/16 10:00 05/17/16 09:29 Santyl - TP Not Given DAILY [facility] Heparin Sodium (Porcine) 5,000 unit 05/15/16 22:00 05/17/16 09:28 Heparin - SQ 5,000 unit BID [facility] Administration Insulin Aspart 1 vial 05/15/16 22:00 05/17/16 11:35 Novolog Vial Sliding Scale - SQ 4 units ACHS [facility] Administration Protocol Ondansetron HCl 4 mg 05/15/16 18:16 Zofran Injection IVPB Q6H PRN NAUSEA Oxycodone HCl 5 mg 05/15/16 18:14 05/16/16 13:46 Roxicodone - PO 5 mg Q4H PRN Administration PAIN LEVEL 1-5 Pantoprazole Sodium 40 mg 05/15/16 22:00 05/17/16 09:28 Protonix - PO 40 mg BID [facility] Administration Sevelamer Carbonate 2,400 mg 05/16/16 08:00 05/17/16 11:32 Renvela - PO 2,400 mg TIDCM [facility] Administration Sodium Hypochlorite 1 applic 05/16/16 10:00 05/17/16 09:28 Dakin's Solution 0.25% (Half-Strength) - TP Not Given DAILY [facility] Impression 1. ESRD 2. DFU 3. DM 4. CAD 5. GERD 6. anemia Plan - HD in am, will write orders - abx per ID, bone cultures are pending - cont current meds - hold bp meds before HD - cont renvela - podiatry follow up - pt is s/p I and D of left foot - cont wound care - epogen for anemia Dr Richards
--- NOTE | 2016-05-17 16:30 | PN ---
Teaching Attending Note Name of Resident: Stephanie Smyth ATTENDING PHYSICIAN STATEMENT I saw and evaluated the patient. I reviewed the resident's note and discussed the case with the resident. I agree with the resident's findings and plan as documented. Vital Signs Temperature 98.3 F 05/17/16 14:41 Pulse Rate 73 05/17/16 14:41 Respiratory Rate 20 05/17/16 14:41 Blood Pressure 121/58 05/17/16 14:41 O2 Sat by Pulse Oximetry (%) 100 05/17/16 09:00 CBCD WBC 8.5 K/mm3 (4.0-10.0) 05/14/16 03:20 RBC 3.57 M/mm3 (3.60-5.2) L 05/14/16 03:20 Hgb 10.2 GM/dL (10.7-15.3) L 05/14/16 03:20 Hct 30.2 % (32.4-45.2) L 05/14/16 03:20 MCV 84.8 fl (80-96) 05/14/16 03:20 MCHC 33.7 g/dl (32.0-36.0) 05/14/16 03:20 RDW 14.7 % (11.6-15.6) 05/14/16 03:20 Plt Count 237 K/MM3 (134-434) 05/14/16 03:20 MPV 9.1 fl (7.5-11.1) 05/14/16 03:20 CMP Sodium 135 mmol/L (136-145) L 05/15/16 12:22 Potassium 4.1 mmol/L (3.5-5.1) 05/15/16 12:22 Chloride 94 mmol/L (98-107) L 05/15/16 12:22 Carbon Dioxide 29 mmol/L (21-32) D 05/15/16 12:22 Anion Gap 12 (8-16) 05/15/16 12:22 BUN 43 mg/dL (7-18) H D 05/15/16 12:22 Creatinine 9.2 mg/dL (0.55-1.02) H* D 05/15/16 12:22 Creat Clearance w eGFR 3.95 (>60) 05/13/16 07:00 Random Glucose 244 mg/dL (74-106) H D 05/15/16 12:22 Calcium 9.2 mg/dL (8.5-10.1) 05/15/16 12:22 Total Bilirubin 0.4 mg/dL (0.2-1.0) 05/13/16 07:00 AST 12 U/L (15-37) L 05/13/16 07:00 ALT 8 U/L (12-78) L D 05/13/16 07:00 Alkaline Phosphatase 102 U/L (45-117) 05/13/16 07:00 Total Protein 7.6 g/dl (6.4-8.2) 05/13/16 07:00 Albumin 3.0 g/dl (3.4-5.0) L 05/13/16 07:00 Current Medications Generic Name Dose Route Start Last Admin Trade Name Freq PRN Reason Stop Dose Admin Albuterol Sulfate 1 amp 05/15/16 18:16 Ventolin 0.083% Nebulizer Soln - NEB Q4H PRN SHORT OF BREATH/WHEEZING Carvedilol 25 mg 05/15/16 22:00 05/17/16 09:28 Coreg - PO 25 mg BID [facility] Administration Clindamycin HCl 300 mg 05/16/16 00:00 05/17/16 11:33 Cleocin - PO 300 mg Q6HPO [facility] Administration Clopidogrel Bisulfate 75 mg 05/16/16 10:00 05/17/16 09:29 Plavix - PO 75 mg DAILY [facility] Administration Collagenase 1 applic 05/16/16 10:00 05/17/16 09:29 Santyl - TP Not Given DAILY [facility] Epoetin Hitesh 3,000 unit 05/18/16 15:46 Procrit - IVPUSH 05/18/16 15:47 ONCE ONE Heparin Sodium (Porcine) 5,000 unit 05/15/16 22:00 05/17/16 09:28 Heparin - SQ 5,000 unit BID [facility] Administration Insulin Aspart 1 vial 05/15/16 22:00 05/17/16 11:35 Novolog Vial Sliding Scale - SQ 4 units ACHS [facility] Administration Protocol Ondansetron HCl 4 mg 05/15/16 18:16 Zofran Injection IVPB Q6H PRN NAUSEA Oxycodone HCl 5 mg 05/15/16 18:14 05/16/16 13:46 Roxicodone - PO 5 mg Q4H PRN Administration PAIN LEVEL 1-5 Pantoprazole Sodium 40 mg 05/15/16 22:00 05/17/16 09:28 Protonix - PO 40 mg BID [facility] Administration Sevelamer Carbonate 2,400 mg 05/16/16 08:00 05/17/16 11:32 Renvela - PO 2,400 mg TIDCM [facility] Administration Sodium Hypochlorite 1 applic 05/16/16 10:00 05/17/16 09:28 Dakin's Solution 0.25% (Half-Strength) - TP Not Given DAILY [facility] Home Medications Medication Instructions Recorded Carvedilol [Coreg -] 25 mg PO BID tablet 01/19/16 Clopidogrel Bisulfate [Plavix -] 75 mg PO DAILY tablet 01/19/16 Pantoprazole Sodium [Protonix -] 40 mg PO BID tablet.ec 01/19/16 Sevelamer Carbonate [Renvela -] 2,400 mg PO TIDCM tab 01/19/16 GENERAL: The patient is awake, alert, and fully oriented, in no acute distress. Morbidly obese LUNGS: Breath sounds equal, clear to auscultation bilaterally, no wheezes, no crackles, no accessory muscle use. HEART: Regular rate and rhythm, S1, S2 without murmur, rub or gallop. ABDOMEN: Soft, nontender, nondistended, normoactive bowel sounds, no guarding, no rebound, no hepatosplenomegaly, no masses. EXTREMITIES: 2+ pulses, warm, well-perfused, no edema. Left lower extremity positive for a wrap 05/12/16 23:30 Foot - Left Instep Gram Stain - Final 05/12/16 23:30 Foot - Left Instep Wound Culture - Preliminary Mr S Aureus Diphtheroid/Corynebacterium Strep Agalactiae Group B ASSESSMENT AND PLAN: This is a 36-year-old woman with a history of type 2 DM, ESRD on HD, CAD, stent , HTN, hyperlipidemia who was admitted with an infected diabetic foot ulcer. # Infected diabetic ulcer of left foot on Clindamycin po now, still waiting for Pathology report , s/p Vancomycin and Rocephin . Wound culture growing MRSA, group B Strep.Agalactiae, Corynebacterium; ESR is 113 ; s/p debridement by Caseworker Protective Services on 05/15/2016 ;continue wound care. As per Caseworker Protective Services patient has acute osteomyelitis written on his operative report , as per ID switched to po antibiotic; Clindamycin ; will wait ID recommendation for treatment plan. bone Bx result is still pending . # T2DM on Novolog sliding scale with coverage # ESRD on dialysis ,was getting dialized today. Nephrology consult for HD ,on Renvela # CAD, history of stent continue Coreg, Plavix # Hyperlipidemia Unable to tolerate statins # Hypertension continue Coreg # Morbid obesity with BMI 42.1 Dvt Px: SCDs possible discharge in am
[2016-05-18] MEDS: INSULIN SLIDING SCALE (NOVOLOG) 1 VIAL SQ SCH ×4 (06:07→21:30)
[2016-05-18] MEDS: SEVELAMER CARBONATE 800 MG TAB (FP) PO SCH ×4 (08:35→18:38)
[2016-05-18 09:28] LABS: BASOPHIL 0.8 % (0-2.0); EOSINOPHIL 3.8 % (0-4.5); MCH 28.4 pg (25.7-33.7); MCHC 33.4 g/dl (32.0-36.0); MEAN PLT VOLUME 8.6 fl (7.5-11.1); NEUTROPHILS 67.1 % (42.8-82.8); PLATELET COUNT 203 K/MM3 (134-434); RDW 14.9 % (11.6-15.6); WHITE BLOOD COUNT 8.2 K/mm3 (4.0-10.0)
[2016-05-18 09:52] LABS: CALCIUM 8.9 mg/dL (8.5-10.1)
[2016-05-18 11:20] LABS: CREATININE 10.1 mg/dL (0.55-1.02)
[2016-05-18] MEDS: CLINDAMYCIN HCL 150 MG CAPSULE (FP) PO SCH ×4 (11:20→21:27)
[2016-05-18] MEDS: CARVEDILOL 25 MG TABLET (FP) PO SCH ×4 (11:20→21:28)
[2016-05-18] MEDS: SODIUM HYPOCHLORITE 0.25%- 473 ML BULK BOTTLE TP SCH (11:20)
[2016-05-18] MEDS: CLOPIDOGREL BISULFATE 75 MG TABLET (FP) PO SCH ×2 (11:20→13:21)
[2016-05-18] MEDS: HEPARIN NA (PORCINE) 5,000 UNITS/ML 1ML VIAL SQ SCH (11:20)
[2016-05-18] MEDS: COLLAGENASE CLOSTRIDIUM HIST. 30 GRAMS TUBE TP SCH (11:21)
[2016-05-18] MEDS: PANTOPRAZOLE 40 MG TABLET (FP) PO SCH ×3 (11:21→21:28)
[2016-05-18] MEDS: EPOETIN ALFA 3,000 UNIT/1 ML ML IVPUSH ONE ×2 (11:21→12:11)
[2016-05-18] MEDS ORDERED: PICC LINE 8 ML FLUSH PROTOCOL IVPUSH PRN (12:55)
[2016-05-18] MEDS ORDERED: PT OWN MED DRAWER 7, Y5N ONE (12:58)
--- NOTE | 2016-05-18 14:20 | PN ---
Teaching Attending Note Name of Resident: Stephanie Smyth ATTENDING PHYSICIAN STATEMENT I saw and evaluated the patient. I reviewed the resident's note and discussed the case with the resident. I agree with the resident's findings and plan as documented. Vital Signs Temperature 98.5 F 05/18/16 09:00 Pulse Rate 79 05/18/16 13:29 Respiratory Rate 18 05/18/16 12:48 Blood Pressure 171/73 05/18/16 12:48 O2 Sat by Pulse Oximetry (%) 98 05/18/16 13:29 CBCD WBC 8.2 K/mm3 (4.0-10.0) 05/18/16 09:00 RBC 3.49 M/mm3 (3.60-5.2) L 05/18/16 09:00 Hgb 9.9 GM/dL (10.7-15.3) L 05/18/16 09:00 Hct 29.7 % (32.4-45.2) L 05/18/16 09:00 MCV 85.0 fl (80-96) 05/18/16 09:00 MCHC 33.4 g/dl (32.0-36.0) 05/18/16 09:00 RDW 14.9 % (11.6-15.6) 05/18/16 09:00 Plt Count 203 K/MM3 (134-434) 05/18/16 09:00 MPV 8.6 fl (7.5-11.1) 05/18/16 09:00 CMP Sodium 135 mmol/L (136-145) L 05/18/16 09:00 Potassium 4.0 mmol/L (3.5-5.1) 05/18/16 09:00 Chloride 94 mmol/L (98-107) L 05/18/16 09:00 Carbon Dioxide 29 mmol/L (21-32) 05/18/16 09:00 Anion Gap 12 (8-16) 05/18/16 09:00 BUN 47 mg/dL (7-18) H 05/18/16 09:00 Creatinine 10.1 mg/dL (0.55-1.02) H* 05/18/16 09:00 Creat Clearance w eGFR 3.95 (>60) 05/13/16 07:00 Random Glucose 144 mg/dL (74-106) H D 05/18/16 09:00 Calcium 8.9 mg/dL (8.5-10.1) 05/18/16 09:00 Total Bilirubin 0.4 mg/dL (0.2-1.0) 05/13/16 07:00 AST 12 U/L (15-37) L 05/13/16 07:00 ALT 8 U/L (12-78) L D 05/13/16 07:00 Alkaline Phosphatase 102 U/L (45-117) 05/13/16 07:00 Total Protein 7.6 g/dl (6.4-8.2) 05/13/16 07:00 Albumin 3.0 g/dl (3.4-5.0) L 05/13/16 07:00 Current Medications Generic Name Dose Route Start Last Admin Trade Name Freq PRN Reason Stop Dose Admin Albuterol Sulfate 1 amp 05/15/16 18:16 Ventolin 0.083% Nebulizer Soln - NEB Q4H PRN SHORT OF BREATH/WHEEZING Carvedilol 25 mg 05/15/16 22:00 05/18/16 13:21 Coreg - PO 25 mg BID [facility] Administration Clindamycin HCl 300 mg 05/17/16 22:00 05/18/16 13:20 Cleocin - PO 300 mg QID [facility] Administration Clopidogrel Bisulfate 75 mg 05/16/16 10:00 05/18/16 13:21 Plavix - PO 75 mg DAILY [facility] Administration Collagenase 1 applic 05/16/16 10:00 05/18/16 11:21 Santyl - TP Not Given DAILY [facility] IV Flush 8 ml 05/18/16 12:55 Picc Line Flush IVPUSH PRN PRN Protocol Insulin Aspart 1 vial 05/15/16 22:00 05/18/16 11:21 Novolog Vial Sliding Scale - SQ Not Given ACHS [facility] Protocol Ondansetron HCl 4 mg 05/15/16 18:16 Zofran Injection IVPB Q6H PRN NAUSEA Oxycodone HCl 5 mg 05/15/16 18:14 05/16/16 13:46 Roxicodone - PO 5 mg Q4H PRN Administration PAIN LEVEL 1-5 Pantoprazole Sodium 40 mg 05/15/16 22:00 05/18/16 13:21 Protonix - PO 40 mg BID [facility] Administration Sevelamer Carbonate 2,400 mg 05/16/16 08:00 05/18/16 12:30 Renvela - PO Not Given TIDCM [facility] Sodium Hypochlorite 1 applic 05/16/16 10:00 05/18/16 11:20 Dakin's Solution 0.25% (Half-Strength) - TP Not Given DAILY [facility] Home Medications Medication Instructions Recorded Carvedilol [Coreg -] 25 mg PO BID tablet 01/19/16 Clopidogrel Bisulfate [Plavix -] 75 mg PO DAILY tablet 01/19/16 Pantoprazole Sodium [Protonix -] 40 mg PO BID tablet.ec 01/19/16 Sevelamer Carbonate [Renvela -] 2,400 mg PO TIDCM tab 01/19/16 EXTREMITIES: 2+ pulses, warm, well-perfused, no edema. Left lower extremity wound is clean Pathology result of Bone Bx: positive for acute Osteomyelitis 05/12/16 23:30 Foot - Left Instep Gram Stain - Final 05/12/16 23:30 Foot - Left Instep Wound Culture - Preliminary Mr S Aureus Diphtheroid/Corynebacterium Strep Agalactiae Group B ASSESSMENT AND PLAN: This is a 36-year-old woman with a history of type 2 DM, ESRD on HD, CAD, stent , HTN, hyperlipidemia who was admitted with an infected diabetic foot ulcer. # Infected diabetic ulcer of left foot s/p debridement by Client Support Analyst on 2016, Wound culture growing MRSA, group B Strep.Agalactiae, Corynebacterium; with elevated ESR 113 ; ;continue wound care. As per Client Support Analyst patient has acute osteomyelitis written on his operative report. As per bone Bx report patient has acute Osteomyelitis, discussed with ID multiple times and discussed with , patient will be discharged home, will receive Vancomycin post Dialysis, and will get one dose today since patient already had the dialysis. # T2DM on Novolog sliding scale with coverage # ESRD on dialysis (MWF) continue Renvela, continue with # CAD, history of stent continue Coreg, Plavix # Hyperlipidemia Unable to tolerate statins # Hypertension continue Coreg # Morbid obesity with BMI 42.1 Dvt Px: SCDs discharge patient home, Vancomycin post Dialysis for 6 weeks as per when patient is having dialysis. is aware.
--- NOTE | 2016-05-18 14:41 | PN ---
Progress Note, Physician History of Present Illness: patient stable no new issues - Current Medication List Current Medications: Active Medications Albuterol Sulfate (Ventolin 0.083% Nebulizer Soln -) 1 amp NEB Q4H PRN PRN Reason: SHORT OF BREATH/WHEEZING Carvedilol (Coreg -) 25 mg PO BID [facility] Last Admin: 05/18/16 13:21 Dose: 25 mg Clindamycin HCl (Cleocin -) 300 mg PO QID [facility] Last Admin: 05/18/16 13:20 Dose: 300 mg Clopidogrel Bisulfate (Plavix -) 75 mg PO DAILY [facility] Last Admin: 05/18/16 13:21 Dose: 75 mg Collagenase (Santyl -) 1 applic TP DAILY [facility] Last Admin: 05/18/16 11:21 Dose: Not Given IV Flush (Picc Line Flush) 8 ml IVPUSH PRN PRN PRN Reason: Protocol Insulin Aspart (Novolog Vial Sliding Scale -) 1 vial SQ ACHS [facility] PRN Reason: Protocol Last Admin: 05/18/16 11:21 Dose: Not Given Ondansetron HCl (Zofran Injection) 4 mg IVPB Q6H PRN PRN Reason: NAUSEA Oxycodone HCl (Roxicodone -) 5 mg PO Q4H PRN PRN Reason: PAIN LEVEL 1-5 Last Admin: 05/16/16 13:46 Dose: 5 mg Pantoprazole Sodium (Protonix -) 40 mg PO BID [facility] Last Admin: 05/18/16 13:21 Dose: 40 mg Sevelamer Carbonate (Renvela -) 2,400 mg PO TIDCM [facility] Last Admin: 05/18/16 12:30 Dose: Not Given Sodium Hypochlorite (Dakin's Solution 0.25% (Half-Strength) -) 1 applic TP DAILY [facility] Last Admin: 05/18/16 11:20 Dose: Not Given - Objective Vital Signs: Vital Signs Temperature 98.5 F 05/18/16 09:00 Pulse Rate 79 05/18/16 13:29 Respiratory Rate 18 05/18/16 12:48 Blood Pressure 171/73 05/18/16 12:48 O2 Sat by Pulse Oximetry (%) 98 05/18/16 13:29 Constitutional: Yes: No Distress, Calm Neck: Yes: Supple Cardiovascular: Yes: Regular Rate and Rhythm Respiratory: Yes: Regular, CTA Bilaterally Gastrointestinal: Yes: Normal Bowel Sounds, Soft Musculoskeletal: Yes: Other Extremities: Yes: Other Neurological: Yes: Other Labs: CBC, BMP 05/18/16 09:00 05/18/16 09:00 INR, PTT INR 1.08 (0.82-1.09) 05/13/16 09:30 Assessment/Plan t Problem List - Problem (1) Diabetic foot ulcer (2) DM (diabetes mellitus), type 2 with renal complications (3) ESRD (end stage renal disease) on dialysis (4) CAD (coronary artery disease) (5) HLD (hyperlipidemia) (6) HTN (hypertension) r/o osteo mrsa wound infection plan bone cx result noted patient can be on vanco during dialysis i suspect this is mrsa osteo will need it for 6 weeks follow vanco levels also vanco start at 1 gram during dialysis and adjust accordingly
[2016-05-18] MEDS ORDERED: VANCOMYCIN 1 GRAM (PRE-DOCKED) 1,000 MG/250 ML BAG IVPB ONE ×2 (15:46→18:15)
--- NOTE | 2016-05-18 15:46 | PN ---
Progress Note, Physician History of Present Illness: Pt seen and examined at bedside. She is awake and alert. She tolerated HD today. She denies fevers or chills. - Current Medication List Current Medications: Active Medications Albuterol Sulfate (Ventolin 0.083% Nebulizer Soln -) 1 amp NEB Q4H PRN PRN Reason: SHORT OF BREATH/WHEEZING Carvedilol (Coreg -) 25 mg PO BID [facility] Last Admin: 05/18/16 13:21 Dose: 25 mg Clindamycin HCl (Cleocin -) 300 mg PO QID [facility] Last Admin: 05/18/16 13:20 Dose: 300 mg Clopidogrel Bisulfate (Plavix -) 75 mg PO DAILY [facility] Last Admin: 05/18/16 13:21 Dose: 75 mg Collagenase (Santyl -) 1 applic TP DAILY [facility] Last Admin: 05/18/16 11:21 Dose: Not Given IV Flush (Picc Line Flush) 8 ml IVPUSH PRN PRN PRN Reason: Protocol Insulin Aspart (Novolog Vial Sliding Scale -) 1 vial SQ ACHS [facility] PRN Reason: Protocol Last Admin: 05/18/16 11:21 Dose: Not Given Ondansetron HCl (Zofran Injection) 4 mg IVPB Q6H PRN PRN Reason: NAUSEA Oxycodone HCl (Roxicodone -) 5 mg PO Q4H PRN PRN Reason: PAIN LEVEL 1-5 Last Admin: 05/16/16 13:46 Dose: 5 mg Pantoprazole Sodium (Protonix -) 40 mg PO BID [facility] Last Admin: 05/18/16 13:21 Dose: 40 mg Sevelamer Carbonate (Renvela -) 2,400 mg PO TIDCM [facility] Last Admin: 05/18/16 12:30 Dose: Not Given Sodium Hypochlorite (Dakin's Solution 0.25% (Half-Strength) -) 1 applic TP DAILY [facility] Last Admin: 05/18/16 11:20 Dose: Not Given - Objective Vital Signs: Vital Signs Temperature 98.2 F 05/18/16 14:58 Pulse Rate 82 05/18/16 14:58 Respiratory Rate 18 05/18/16 14:58 Blood Pressure 171/73 05/18/16 12:48 O2 Sat by Pulse Oximetry (%) 98 05/18/16 13:29 Constitutional: Yes: Calm Eyes: Yes: Conjunctiva Clear HENT: Yes: Atraumatic Neck: Yes: Supple Cardiovascular: Yes: S1, S2 Respiratory: Yes: CTA Bilaterally Genitourinary: Yes: WNL Musculoskeletal: Yes: WNL Extremities: Yes: Other (fistula with thrill and bruit) Edema: No Neurological: Yes: Oriented Psychiatric: Yes: Oriented Labs: CBC, BMP 05/18/16 09:00 05/18/16 09:00 INR, PTT INR 1.08 (0.82-1.09) 05/13/16 09:30 Problem List - Problems (1) CAD (coronary artery disease) Code(s): I25.10 - ATHSCL HEART DISEASE OF [place] CORONARY ARTERY W/O ANG PCTRS (2) DM (diabetes mellitus), type 2 with renal complications Code(s): E11.29 - TYPE 2 DIABETES MELLITUS W OTH DIABETIC KIDNEY COMPLICATION Qualifiers: Diabetes mellitus complication detail: with chronic kidney disease Diabetes mellitus correction insulin use: unspecified correction insulin use status Chronic kidney disease stage: unspecified stage Qualified Code (s): E11.22 - Type 2 diabetes mellitus with diabetic chronic kidney disease; N18.1 - Chronic kidney disease, stage 1; Z79.4 - joint terminal attack controller (current) use of insulin (3) ESRD (end stage renal disease) on dialysis Code(s): N18.6 - END STAGE RENAL DISEASE Z99.2 - DEPENDENCE ON RENAL DIALYSIS (4) HLD (hyperlipidemia) Code(s): E78.5 - HYPERLIPIDEMIA, UNSPECIFIED (5) HTN (hypertension) Code(s): I10 - ESSENTIAL (PRIMARY) HYPERTENSION Qualifiers: Hypertension type: essential hypertension Qualified Code(s): I10 - Essential (primary) hypertension Assessment/Plan Current Medications Generic Name Dose Route Start Last Admin Trade Name Freq PRN Reason Stop Dose Admin Albuterol Sulfate 1 amp 05/15/16 18:16 Ventolin 0.083% Nebulizer Soln - NEB Q4H PRN SHORT OF BREATH/WHEEZING Carvedilol 25 mg 05/15/16 22:00 05/18/16 13:21 Coreg - PO 25 mg BID [facility] Administration Clindamycin HCl 300 mg 05/17/16 22:00 05/18/16 13:20 Cleocin - PO 300 mg QID [facility] Administration Clopidogrel Bisulfate 75 mg 05/16/16 10:00 03/03/17 13:21 Plavix - PO 75 mg DAILY [facility] Administration Collagenase 1 applic 05/16/16 10:00 05/18/16 11:21 Santyl - TP Not Given DAILY [facility] IV Flush 8 ml 05/18/16 12:55 Picc Line Flush IVPUSH PRN PRN Protocol Insulin Aspart 1 vial 05/15/16 22:00 05/18/16 11:21 Novolog Vial Sliding Scale - SQ Not Given ACHS [facility] Protocol Ondansetron HCl 4 mg 05/15/16 18:16 Zofran Injection IVPB Q6H PRN NAUSEA Oxycodone HCl 5 mg 05/15/16 18:14 05/16/16 13:46 Roxicodone - PO 5 mg Q4H PRN Administration PAIN LEVEL 1-5 Pantoprazole Sodium 40 mg 05/15/16 22:00 05/18/16 13:21 Protonix - PO 40 mg BID [facility] Administration Sevelamer Carbonate 2,400 mg 05/16/16 08:00 05/18/16 12:30 Renvela - PO Not Given TIDCM [facility] Sodium Hypochlorite 1 applic 05/16/16 10:00 05/18/16 11:20 Dakin's Solution 0.25% (Half-Strength) - TP Not Given DAILY [facility] Impression 1. ESRD 2. DFU 3. DM 4. CAD 5. GERD 6. anemia Plan - pt tolerated HD - cultures noted and discussed with ID, pt will need vanco for a total of 6 weeks - can give first dose today - HD scheduled as outpt on Saturday - discussed with PMD - nona escalera - podiatry follow up - pt is s/p I and D of left foot - cont wound care - epogen for anemia Dr Richards
--- NOTE | 2016-05-18 15:53 | DS ---
Physical Exam: SUBJECTIVE: Patient seen and examined. stable for outpatient follow-up. Agrees with plan to receive IV abx during hemodialysis with vancomycin levels to checked and vancomycin levels to be adjusted at necessary for 6 weeks. OBJECTIVE: Vital Signs Period Temp Pulse Resp BP Sys/Canales Pulse Ox Last 24 Hr 98.1 F-98.5 F 71-82 18-20 129-174/70-84 98-100 PHYSICAL EXAM GENERAL: The patient is awake, alert, and fully oriented, in no acute distress. EYES: blind right eye. eomi, left wnl. anicteric sclera ENT: moist mucous membranes. LUNGS: Breath sounds equal, clear to auscultation bilaterally, no wheezes, no crackles, no accessory muscle use. HEART: Regular rate and rhythm, S1, S2 without murmur. bruit in 2nd right intercostal space ABDOMEN: obese,Soft, nontender, nondistended, normoactive bowel sounds EXTREMITIES: 2+ pulses, warm, well-perfused, no edema. left foot with sutures in place anterioly, no fluctuance, no erythema, ulcer on plantar surface at base of 1st toe extending medially to between webspace between 1st and 2nd digit. no discharge. LABS Laboratory Results - last 24 hr 05/17/16 05/17/16 05/18/16 17:57 21:46 05:59 WBC RBC Hgb Hct MCV MCHC RDW Plt Count MPV Neutrophils % Lymphocytes % Monocytes % Eosinophils % Basophils % Sodium Potassium Chloride Carbon Dioxide Anion Gap BUN Creatinine POC Glucometer 193 205 180 Random Glucose Calcium 05/18/16 05/18/16 09:00 09:00 WBC 8.2 RBC 3.49 L Hgb 9.9 L Hct 29.7 L MCV 85.0 MCHC 33.4 RDW 14.9 Plt Count 203 MPV 8.6 Neutrophils % 67.1 Lymphocytes % 22.9 Monocytes % 5.4 Eosinophils % 3.8 Basophils % 0.8 Sodium 135 L Potassium 4.0 Chloride 94 L Carbon Dioxide 29 Anion Gap 12 BUN 47 H Creatinine 10.1 H* POC Glucometer Random Glucose 144 H D Calcium 8.9 Microbiology 05/15/16 18:00 Biopsy Tissue Tissue Culture - Final Mr S Aureus Diphtheroid/Corynebacterium 05/15/16 18:00 Biopsy Tissue Anaerobic Culture - Final NO ANAEROBES WERE ISOLATED 05/15/16 18:00 Bone Tissue Culture - Final NO GROWTH OF AEROBIC ORGANISMS AFTER 48 HOURS INCUBATION 05/15/16 18:00 Bone Anaerobic Culture - Final NO ANAEROBES WERE ISOLATED 05/12/16 23:30 Foot - Left Instep Wound Culture - Final S Aureus Diphtheroid/Corynebacterium Strep Agalactiae Group B HOSPITAL COURSE: Date of Admission:05/12/16 - Date of Discharge: 05/18/16 36 yr old woman with NIDDM, ESRD on HD (mwf), CAD s/p 1 stent admitted for diabetic foot ulcer. She underwent a bone biopsy on 05/[address] Palomino. She tolerated the procedure well. The bone was soft and fragmented, indicative of an acute osteomyelitis. Wound culture grew MRSA, diph/coryne/strep agalactaie group B. Bone biopsy showed gangrenous necrosis. She was treated with rocephin 1gm iv daily 05/14-05/16 and cleocin 300mg po q6hr 05/04 - 05/18. She is to receive vancomycin during dialysis as outpatient for 6 weeks. Wound was dressed with santyl prior to biopsy then cleaned with Dakin's solution post-biopsy, with instructions to use Dakin's solution to clean the wound daily at home. Minutes to complete discharge: 40 Discharge Summary Reason For Visit: DIABETIC FOOT ULCER WITH OSTEOMYELITIS,END STAGE R Current Active Problems Diabetic foot ulcer with osteomyelitis (Acute) CAD (coronary artery disease) (Chronic) DM (diabetes mellitus), type 2 with renal complications (Chronic) ESRD (end stage renal disease) on dialysis (Chronic) HLD (hyperlipidemia) (Chronic) HTN (hypertension) (Chronic) Morbid obesity with BMI of 40.0-44.9, adult (Chronic) Stented coronary artery (Chronic) Condition: Fair - Instructions Diet, Activity, Other Instructions: You will receive vancomycin, the antibiotic for your infection, during your dialysis days at the dialysis center for 6 weeks, you will need to have your vancomycin level checked routinely and have the vancomycin dose adjusted. Dr. Richards is aware of giving you the antibiotics. Resume your home medications. Follow-up with Dr. Palomino in the wound care clinic on Saturday05/22/2016. Clean your wound with Dakin's solution and apply a clean dry gauze daily. Use your surgical boot and avoid placing weight on your toes. Referrals: Kahlil Hsieh MD [Primary Care Provider] - Disposition: HOME - Home Medications Comprehensive Discharge Medication List: Ambulatory Orders Carvedilol [Coreg -] 25 mg PO BID tablet 01/19/16 Clopidogrel Bisulfate [Plavix -] 75 mg PO DAILY tablet 01/19/16 Pantoprazole Sodium [Protonix -] 40 mg PO BID tablet.ec 01/19/16 Sevelamer Carbonate [Renvela -] 2,400 mg PO TIDCM tab 01/19/16 This patient is new to me today: No Emergency Visit: No Critical Care patient: No - Discharge Referral Referred to [facility] No
[2016-05-19] MEDS: INSULIN SLIDING SCALE (NOVOLOG) 1 VIAL SQ SCH (06:37)
[2016-05-19] MEDS ORDERED: PT OWN MED DRAWER 7, Y5N ONE (08:49)
[2016-05-19 09:01] VITALS: BP 140/76; PULSE 72; TEMP 98
== END 2016-05-19 09:00 | disposition home or self-care (01) | DRG 623 ==
LOC: JER 15:15 → JERFT 15:15 → JERBED 22:14 → J8W 05-13 00:28
PROVIDERS: ADMIT Internal Medicine; ATTEND Internal Medicine
PROC: 5A1D60Z (ICD-10-PCS; 2016-05-13)
PROC: 0QBR0ZX Excision of Left Toe Phalanx, Open Approach, Diagnostic (ICD-10-PCS; 2016-05-15)
PROC: 0JBR0ZZ Excision of Left Foot Subcutaneous Tissue and Fascia, Open Approach (ICD-10-PCS; principal; 2016-05-15 16:00)
DX: E11.621 Type 2 diabetes mellitus with foot ulcer (principal); I12.0 Hypertensive chronic kidney disease with stage 5 chronic kidney disease or end stage renal disease; Z68.41 Body mass index [BMI] 40.0-44.9, adult; M86.172 Other acute osteomyelitis, left ankle and foot; E11.65 Type 2 diabetes mellitus with hyperglycemia; I25.10 Atherosclerotic heart disease of native coronary artery without angina pectoris; E11.22 Type 2 diabetes mellitus with diabetic chronic kidney disease; N18.6 End stage renal disease; Z99.2 Dependence on renal dialysis; L97.529 Non-pressure chronic ulcer of other part of left foot with unspecified severity; E78.5 Hyperlipidemia, unspecified; Z91.14 Patient's other noncompliance with medication regimen; E66.01 Morbid (severe) obesity due to excess calories; E11.69 Type 2 diabetes mellitus with other specified complication; Z95.5 Presence of coronary angioplasty implant and graft; K21.9 Gastro-esophageal reflux disease without esophagitis; Z79.4 Long term (current) use of insulin; D64.9 Anemia, unspecified; Z22.322 Carrier or suspected carrier of Methicillin resistant Staphylococcus aureus
CPT/HCPCS: 36415; 73630-TC-LT; 80048; 80053; 83036; 83735; 84100; 84703; 85025; 85610; 85651; 86140; 86704; 86706; 86708; 87070; 87075; 87186; 87205; 87340; 88304-TC; 88305-TC; 88311-TC; 93005; 93010; 94760; 99285-25; J0885; J1644

== ENCOUNTER 2018-07-01 11:45 | Observation (INO) | payer OTHER ==
--- NOTE | 2018-07-01 12:07 | PDOC ---
History of Present Illness - General Chief Complaint: Chest Pain Stated Complaint: Chest Pain Time Seen by Provider: 07/01/18 12:05 History Source: Patient Exam Limitations: No Limitations - History of Present Illness Initial Comments: Pt is a 38 yo F, with PMH of CAD (stent x1 on plavix), DM (BG in the 100s at home), ESRD (T/R/Sat), and HTN, who is presenting with complaints of "acid reflux" x1 week, now with associated n/v and "pinching" chest pain. Pt states she normally has reflux relieved with antacids and zantac, but this week has been worse, and this AM started to have intermittent "pinching" pain in the middle of her chest, which lasted for 2-3 minutes at a time. She also had 2 episodes of vomiting, which had "streaks of blood" mixed in after she was vomiting for some time. She has also had cough with productive white/frothy sputum with "streaks of blood mixed in after coughing," with associated subjective fevers and chills. Pt did not go to her dialysis today due to concerns of chest pain. Pt denies any headache, vision changes, syncope, palpitations, SOB, orthopnea/PND, urinary symptoms, diarrhea/constipation, or leg swelling worse from baseline. On chart review, pt has gained ~30 kgs since 2018. Social: Pt denies any cigarette, alcohol, or drug use. Pt denies any recent travel or sick contacts. Surgical: AV graft placement L arm, cardiac stent x1. Family: no relevant history. 07/01/18 13:28 Past History - Travel Traveled outside of the country in the last 30 days: No Close contact w/someone who was outside of country & ill: No - Past Medical History Allergies/Adverse Reactions: Allergies Allergy/AdvReac Type Severity Reaction Status Date / Time No Known Allergies Allergy Verified 07/01/18 11:54 Home Medications: Ambulatory Orders Carvedilol [Coreg -] 25 mg PO BID tablet 01/19/16 Clopidogrel Bisulfate [Plavix -] 75 mg PO DAILY tablet 01/19/16 Pantoprazole Sodium [Protonix -] 40 mg PO BID tablet.ec 01/19/16 Sevelamer Carbonate [Renvela -] 2,400 mg PO TIDCM tab 01/19/16 Amlodipine Besylate 10 mg PO DAILY 07/01/18 Atorvastatin Ca [Lipitor] 20 mg PO HS 07/01/18 Anemia: Yes Asthma: Yes Cancer: No Cardiac Disorders: Yes (1 stent) COPD: No CHF: Yes Diabetes: Yes Dialysis: Yes (T/R/Sat) HTN: Yes Hypercholesterolemia: Yes - Surgical History Cardiac Surgery: Yes (STENT) - Suicide/Smoking/Psychosocial Hx Smoking Status: No Smoking History: Never smoked Years of Tobacco Use: 0 Have you smoked in the past 12 months: No Number of Cigarettes Smoked Daily: 0 Cigars Per Day: 0 Hx Alcohol Use: No Drug/Substance Use Hx: No Substance Use Type: None Hx Substance Use Treatment: No Review of Systems - Review of Systems Able to Perform ROS?: Yes Is the patient limited Martiniquais proficient: No Constitutional: Yes: Chills, Fever, Weight Stable. No: Diaphoresis, Loss of Appetite, Malaise HEENTM: No: Recent change in vision, Nose Congestion, Throat Swelling, Difficulty Swallowing Respiratory: Yes: Cough, Productive cough, Hemoptysis. No: Orthopnea, Shortness of Breath, SOB with Exertion, SOB at Rest, Wheezing Cardiac (ROS): Yes: Chest Pain, Edema (chronic, stable per pt). No: Irregular Heart Rate, Lightheadedness, Palpitations, Syncope, Chest Tightness ABD/GI: Yes: Nausea, Vomiting, Indigestion, Abdominal cramping. No: Constipated , Diarrhea, Difficulty Swallowing, Poor Appetite, Poor Fluid Intake, Rectal Bleeding, Tarry Stools : No: Burning, Dysuria, Discharge, Frequency, Pain, Urgency Musculoskeletal: No: Back Pain, Joint Pain Integumentary: No: Rash Neurological: No: Headache, Weakness, Unsteady Gait, Dizziness Psychiatric: No: Sleep Pattern Change, Change in Appetite Endocrine: No: Increased Urine, Change in Weight Hematologic/Lymphatic: No: Anemia, Blood Clots, Easy Bleeding, Easy Bruising All Other Systems: Reviewed and Negative *Physical Exam - Vital Signs Last Vital Signs Temp Pulse Resp BP Pulse Ox 98.4 F 86 18 166/86 96 07/01/18 11:51 07/01/18 11:51 07/01/18 11:51 07/01/18 11:51 07/01/18 11:51 - Physical Exam Comments: HTN 166/86, 98% on RA during exam, pt afebrile. Pt appears uncomfortable, has active vomiting and nausea. Morbidly obese body habitus. Pt alert and oriented x3. 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 No midline spinal tenderness, step-offs, or crepitus. Head normocephalic, atraumatic. Eyes PERRLA, EOMI. Oropharynx without erythema or exudates, no LAD b/l. No nasal congestion, hearing intact. Clear heart sounds, S1/S2, no JVD, or heart murmur. B/l pitting edema to ankles. Diminished lung sounds due to body habitus, no respiratory distress, wheezes, crackles, or accessory muscle use. No abdominal or CVA tenderness to palpation, no rebound, no guarding. Abdomen soft, protuberant, and with normoactive bowel sounds. Skin without jaundice or rash. HD AV graft on L AC, with no erythema, warmth, or drainage. 07/01/18 13:15 07/01/18 15:28 07/01/18 18:43 ED Treatment Course - LABORATORY CBC & Chemistry Diagram: 07/01/18 13:15 07/01/18 13:15 Medical Decision Making - Medical Decision Making Pt was seen at bedside, also will be seen by attending Dr. Dubois. Pt presenting with complaints of "acid reflux" x1 week, now with associated n/v and "pinching" chest pain. Pt states she normally has reflux relieved with antacids and zantac, but this week has been worse, and this AM started to have intermittent "pinching" pain in the middle of her chest, which lasted for 2-3 minutes at a time. She also had 2 episodes of vomiting, which had "streaks of blood" mixed in after she was vomiting for some time. She has also had cough with productive white/frothy sputum with "streaks of blood mixed in after coughing," with associated subjective fevers and chills. Pt denies any headache , vision changes, syncope, palpitations, SOB, orthopnea/PND, urinary symptoms, diarrhea/constipation, or leg swelling worse from baseline. Considering gastritis (viral vs worsening reflux/ulcer) vs ACS vs new HF vs pulmonary edema vs electrolyte imbalances vs gastroparesis. Ordered work-up including CBC, CMP, BNP, Mg, Phos, cardiac profile, ECG, influenza, chest x-ray, UA, urine culture. Provided 20 mg IV pepcid, 1 g ofirmev, and 4 mg IV zofran for improvement of nausea and discomfort. Will continue to reassess pt and monitor for symptomatic improvement. ECG: NSR, intervals WNL. No TWIs or significant ST segment changes. No significant changes from prior ECG. Attempting US-guided IV line as pt is very difficult to obtain IV access and dialysis AV graft in L arm. 07/01/18 13:08 CBC WNL for pt. CMP: BUN/Cr 71/12, glucose 191 BNP 11,756 Trop .02 with no ECG changes. Hospitalist team accepted pt for admission to telemetry (Dr. Russell). Going for dialysis today. 07/01/18 15:16 Pt still having n/v, provided 10 mg IV reglan and 25 mg IV benadryl. Pt awaiting transfer to dialysis. 07/01/18 15:51 Pt was taken to dialysis and admitted to hospitalist team. Pts symptoms improved after reglan and benadryl. 07/01/18 18:44 *DC/Admit/Observation/Transfer Diagnosis at time of Disposition: ESRD (end stage renal disease) on dialysis, Stented coronary artery Nausea and vomiting Qualifiers: Vomiting type: unspecified Vomiting Intractability: non-intractable Qualified Code(s): R11.2 - Nausea with vomiting, unspecified - Discharge Dispostion Condition at time of disposition: Stable Decision to Admit order: Yes - Referrals - Patient Instructions - Post Discharge Activity
[2018-07-01] MEDS ORDERED: FAMOTIDINE 20 MG/50 ML IVPB 20 MG/50 ML MG IVPB ONE ×2 (12:28→13:46)
[2018-07-01] MEDS ORDERED: ACETAMINOPHEN 1000 MG/100 ML VIAL (NON FORMULARY) IVPB ONE (12:28)
[2018-07-01] MEDS ORDERED: ONDANSETRON 4 MG/2 ML VIAL IVPUSH ONE (12:28)
--- NOTE | 2018-07-01 12:42 | PDOC ---
Attending Attestation - Resident Resident Name: AnkitJazzy - ED Attending Attestation I have performed the following: I have examined & evaluated the patient, The case was reviewed & discussed with the resident, I agree w/resident's findings & plan, Exceptions are as noted - HPI HPI: 07/01/18 12:41 38 yo F h/;o esrd,( t/r/sat) dm, gerd cad with stents gastritis here wtih c/o epigastric pain, substernal chest pain did have n/v x2 . also c/o productive cough. f/c white. frothy. with red streaks. emesis has been brownish with flecks of red. denies eating any red substance. chest pain substernal sharp, . has had multiple episodes of emesis today twice in ed. no h/o abdominal surgery no mod factors. no change to bm. no sick contacts. is due for dialysis today, last was 4 days ago. 07/01/18 15:44 - Physicial Exam PE: 07/01/18 15:47 awake alert lungs clear bilaterally heart rrr no mr abd soft obese nontender. ext wwp no edema. left upper ext with fistula bruit, thrill no erythema nuero alert oriented x 3. . - Medical Decision Making 07/01/18 15:48 38 yo DM CAD stents ESRD here with sob n/v and chest pain. nontender abd. plan antiemetics . differential gastritis, gastroparesis, dka infection, acs, pneumonia. fluid overload. plan labs ekg cxr antiemetics antacid. pt will require admission. labs unremarkable. trop negative. will admit to telemetry. will get dialyzed today.
[2018-07-01 13:39] LABS: BASO % 1.2 % (0-2.0); EOS % 3.1 % (0-4.5); HEMATOCRIT 34.8 % (32.4-45.2); HEMOGLOBIN 11.8 GM/dL (10.7-15.3); LYMPH % 15.8 % (8-40); MCH 29.3 pg (25.7-33.7); MCHC 33.9 g/dl (32.0-36.0); MEAN CELL VOLUME 86.4 fl (80-96); MEAN PLT VOLUME 9.3 fl (7.5-11.1); MONO % 5.9 % (3.8-10.2); PLATELET COUNT 197 K/MM3 (134-434); RBC 4.03 M/mm3 (3.60-5.2); RDW 14.6 % (11.6-15.6); WHITE BLOOD COUNT 7.4 K/mm3 (4.0-10.0)
[2018-07-01] MEDS ORDERED: ACETAMINOPHEN INJECTION 100 ML IVPB ONE (13:45)
[2018-07-01] MEDS ORDERED: ONDANSETRON 4 MG/2 ML VIAL ONE (13:46)
[2018-07-01 13:54] LABS: INR 1.03 (0.83-1.09); PROTHROMBIN TIME (PATIENT) 12.1 SEC (9.7-13.0)
[2018-07-01] MEDS ORDERED: PANTOPRAZOLE SODIUM 40 MG VIAL IVPUSH ONE (14:00)
[2018-07-01 14:16] LABS: ALBUMIN 3.7 g/dl (3.4-5.0); ALK PHOS 161 U/L (45-117); ANION GAP 11 MMOL/L (8-16); BILIRUBIN,TOTAL 0.3 mg/dL (0.2-1); BLOOD UREA NITROGEN 71 mg/dL (7-18); CALCIUM 8.9 mg/dL (8.5-10.1); CHLORIDE 93 mmol/L (98-107); CO2 30 mmol/L (21-32); GLUCOSE,RANDOM 191 mg/dL (74-106); LIPASE 239 U/L (73-393); MAGNESIUM 2.5 mg/dL (1.8-2.4); N-TERMINAL BNP 11756.2 pg/ml (5-125); POTASSIUM 4.6 mmol/L (3.5-5.1); SGOT/AST 13 U/L (15-37); SGPT/ALT 15 U/L (13-61); SODIUM 134 mmol/L (136-145); TOT PROT 8.4 g/dl (6.4-8.2)
[2018-07-01] MEDS ORDERED: PANTOPRAZOLE SODIUM 40 MG VIAL ONE (14:33)
[2018-07-01 14:45] LABS: CREATININE 12.2 mg/dL (0.55-1.3)
--- NOTE | 2018-07-01 15:04 | EKG ---
Test Reason : Blood Pressure : / mmHG Vent. Rate : 080 BPM Atrial Rate : 080 BPM P-R Int : 158 ms QRS Dur : 082 ms QT Int : 370 ms P-R-T Axes : 039 028 056 degrees QTc Int : 426 ms POOR DATA QUALITY, INTERPRETATION MAY BE ADVERSELY AFFECTED NORMAL SINUS RHYTHM CANNOT RULE OUT ANTERIOR INFARCT , AGE UNDETERMINED ABNORMAL ECG WHEN COMPARED WITH ECG OF 14-MAY-2016 12:09, NO SIGNIFICANT CHANGE WAS FOUND Confirmed by Jamie Alanis ([id number]) on 07/01/2018 3:03:49 PM Referred By: Confirmed By:Jamie Alanis
[2018-07-01] MEDS ORDERED: METOCLOPRAMIDE HCL INJECTION 10 MG/2 ML VIAL IVPUSH ONE (15:20)
[2018-07-01] MEDS ORDERED: METOCLOPRAMIDE HCL INJECTION 10 MG/2 ML VIAL ONE (15:21)
--- NOTE | 2018-07-01 15:42 | CON.NEP ---
Consult Consult Specialty:: Nephrology Referred by:: Medicine Reason for Consultation:: History of End stage renal disease - History of Present Illness Chief Complaint: Chortness of breath and chest pain History of Present Illness: 38 year old female with history of diabetes mellitus, hypertension, hyperlipidemia and ESRD who is now admitted with shortness of breath, nausea and vomiting. Patient is on maintenance hemodialysis three times a week at [facility]. Patient is feeling better after initial treatment in the emergency department. - History Source History Provided By: Patient, Medical Record Limitations to Obtaining History: No Limitations - Past Medical History Cardio/Vascular: Yes: CAD, HTN Pulmonary: Yes: Asthma Gastrointestinal: Yes: GERD Renal/: Yes: Renal Failure, Hemodialysis ...LMP: 05/04/16 Endocrine: Yes: Diabetes Mellitus - Past Surgical History Past Surgical History: Yes: AV Fistula/Graft, Stent - Alcohol/Substance Use Hx Alcohol Use: No - Smoking History Smoking history: Never smoked Have you smoked in the past 12 months: No Aproximately how many cigarettes per day: 0 - Social History ADL: Independent History of Recent Travel: No Home Medications - Allergies Allergies/Adverse Reactions: Allergies Allergy/AdvReac Type Severity Reaction Status Date / Time No Known Allergies Allergy Verified 07/01/18 11:54 - Home Medications Home Medications: Ambulatory Orders Carvedilol [Coreg -] 25 mg PO BID tablet 01/19/16 Clopidogrel Bisulfate [Plavix -] 75 mg PO DAILY tablet 01/19/16 Pantoprazole Sodium [Protonix -] 40 mg PO BID tablet.ec 01/19/16 Sevelamer Carbonate [Renvela -] 2,400 mg PO TIDCM tab 01/19/16 Amlodipine Besylate 10 mg PO DAILY 07/01/18 Atorvastatin Ca [Lipitor] 20 mg PO HS 07/01/18 Review of Systems - Review of Systems Cardiovascular: reports: Chest Pain Respiratory: reports: SOB Gastrointestinal: reports: Abdominal Pain, Nausea, Vomiting Nephrology Consult - Height Height: 6 ft - Weight Weight: 310 lb - BMI Body Mass Index (BMI): 42.0 - Lab Results CBC,BMP: CBC, BMP 07/01/18 13:15 07/01/18 13:15 Anion Gap: Anion Gap Anion Gap 11 MMOL/L (8-16) 07/01/18 13:15 - Physical Examination Vital Signs: Vital Signs Temperature 98.4 F 07/01/18 11:51 Pulse Rate 86 07/01/18 11:51 Respiratory Rate 18 07/01/18 11:51 Blood Pressure 166/86 07/01/18 11:51 O2 Sat by Pulse Oximetry (%) 96 07/01/18 11:51 Constitutional: Yes: Well Nourished, No Distress HENT: Yes: WNL Neck: Yes: Supple Cardiovascular: Yes: Regular Rate and Rhythm (coarse breath sound bilat) Respiratory: Yes: Other Gastrointestinal: Yes: Normal Bowel Sounds, Abdomen, Obese Access for Hemodialysis: AV Fistula Extremities: Yes: Other (Trace bipedal edema) Edema: LLE: Trace, RLE: Trace Neurological: Yes: Alert Problem List - Problems (1) DM (diabetes mellitus), type 2 with renal complications Code(s): E11.29 - TYPE 2 DIABETES MELLITUS W OTH DIABETIC KIDNEY COMPLICATION Qualifiers: Diabetes mellitus long term care phlebotomist insulin use: unspecified long term care phlebotomist insulin use status Diabetes mellitus complication detail: with chronic kidney disease Chronic kidney disease stage: unspecified stage Qualified Code(s): E11.22 - Type 2 diabetes mellitus with diabetic chronic kidney disease (2) ESRD (end stage renal disease) on dialysis Assessment/Plan: 38 year old female with history of hypertension, diabtes mellitus and ESRD admitted with shortness of breath. Patient is scheduled for hemodialysis today. Will follow. Code(s): N18.6 - END STAGE RENAL DISEASE; Z99.2 - DEPENDENCE ON RENAL DIALYSIS (3) HTN (hypertension) Code(s): I10 - ESSENTIAL (PRIMARY) HYPERTENSION Qualifiers: Hypertension type: essential hypertension Qualified Code(s): I10 - Essential (primary) hypertension
[2018-07-01] MEDS ORDERED: ALBUTEROL SO4 0.083% IH SOL 2.5 MG/3 ML VIAL.NEB. NEB PRN (17:06)
--- NOTE | 2018-07-01 17:06 | HP ---
Admitting History and Physical - Admission Chief Complaint: Mid-sternal chest pain History of Present Illness: 38 year old F with h/o GERD, ESRD (HD T-), DMII, right eye blindness, Asthma, CAD s/p PCI in 2016, and HTN presents to ED with c/o mid-sternal 5/10 chest pain x 1 week. Pt described pain as sharp, sometimes burning, no radiation to arms/neck/back/jaw, she has never experienced this pain before and notices pain is independent of food, tried OTC peptobismol without effect and symptoms occur both at rest and with exertion. Associated symptoms include SOB, productive cough with white sputum and blood streaks, chills, nausea, vomiting and decreased appetite, she has also noted RLE tingling but denies palpitations , headaches or loss of consciousness. No sick contacts or recent travel. No Flu vaccine administered this season. Patient missed HD session today so that she could present to ED for evaluation. IN ED EKG: non ischemic and Trop #1: negative CXR: large heart with questionable atelectasis or infiltrate in left hemothorax and right lung Pt with nausea and vomiting in ED which was treated with 10 mg IV reglan and 25 mg IV benadryl. Vitals: BP 166/86, HR 86, RR 18, T 98.4, O2sat 96% Renal consulted and Patient transferred to HD unit for dialysis session. History Source: Patient Limitations to Obtaining History: No Limitations - Past Medical History Cardiovascular: Yes: CAD, HTN, Hyperlipdemia Pulmonary: Yes: Asthma Gastrointestinal: Yes: GERD Renal/: Yes: Renal Failure, Hemodialysis ...LMP: 06/25/18 ...LMP Comment: irreg, "every 3months" per patient ...: No ...: 0 ...Para: 0 Endocrine: Yes: Diabetes Mellitus Additional Past Medical History: Glaucoma Cataracts Obesity right eye blindness - Past Surgical History Past Surgical History: Yes: AV Fistula/Graft, Stent Additional Past Surgical History: bilateral cataract extraction - Advance Directives Advance Directives: Yes: Health Care Proxy (Mother: Raine Aguilar [phone]) - Smoking History Smoking history: Never smoked Have you smoked in the past 12 months: No Aproximately how many cigarettes per day: 0 - Alcohol/Substance Use Hx Alcohol Use: No History of Substance Use: reports: None - Social History Usual Living Arrangement: Yes: Alone 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 Nephrology: Amado Trejo MD @ [facility] Medications - Allergies Allergies/Adverse Reactions: Allergies Allergy/AdvReac Type Severity Reaction Status Date / Time No Known Allergies Allergy Verified 07/01/18 11:54 - Home Medications Home Medications: Ambulatory Orders Carvedilol [Coreg -] 25 mg PO BID tablet 01/19/16 Clopidogrel Bisulfate [Plavix -] 75 mg PO DAILY tablet 01/19/16 Pantoprazole Sodium [Protonix -] 40 mg PO BID tablet.ec 01/19/16 Sevelamer Carbonate [Renvela -] 2,400 mg PO TIDCM tab 01/19/16 Amlodipine Besylate 10 mg PO DAILY 07/01/18 Atorvastatin Ca [Lipitor] 20 mg PO HS 07/01/18 Family Disease History - Family Disease History Family Disease History: Other: Father ( HIV), Mother (alive DMII, b/l BKA), Sister ( (30) from heart disease, DMII, ESRD on HD, HTN) Review of Systems - Review of Systems Constitutional: reports: Chills, Loss of Appetite Eyes: reports: Other (right eye vision loss) Cardiovascular: reports: Chest Pain, Shortness of Breath Gastrointestinal: reports: Nausea, Vomiting Genitourinary: reports: No Symptoms Breasts: reports: No Symptoms Reported Musculoskeletal: reports: No Symptoms Integumentary: reports: No Symptoms Hematology/Lymphatic: reports: No Symptoms Psychiatric: reports: No Symptoms Physical Examination Vital Signs: Vital Signs Temperature 98.4 F 07/01/18 11:51 Pulse Rate 84 07/01/18 15:39 Respiratory Rate 16 07/01/18 15:39 Blood Pressure 162/82 07/01/18 15:39 O2 Sat by Pulse Oximetry (%) 100 07/01/18 15:39 Constitutional: Yes: Well Nourished, No Distress, Calm Eyes: Yes: Conjunctiva Clear (Left conjunctiva clear), Other (Left eye: 3mm Right eye: no reaction) HENT: Yes: Atraumatic, Normocephalic, Other (no tonsillar injection or exudate) Neck: Yes: Supple, Trachea Midline Cardiovascular: Yes: Regular Rate and Rhythm, Murmur (systolic murmur 3/6 across precordium) Respiratory: Yes: Regular, CTA Bilaterally Gastrointestinal: Yes: Soft, Abdomen, Obese, Hypoactive Bowel Sounds ...Rectal Exam: Yes: Deferred Musculoskeletal: Yes: WNL Extremities: Yes: WNL Edema: No Peripheral Pulses WNL: Yes Peripheral Pulses: Left Radial: 2+, Right Radial: 2+ Integumentary: Yes: Venous Stasis Changes Neurological: Yes: Alert, Oriented, Other (gait not assessed) ...Motor Strength: WNL Psychiatric: Yes: Alert, Oriented Labs: CBC, BMP 07/01/18 13:15 07/01/18 13:15 Imaging - Results Chest X-ray: Pending (CXR 07/01/2018 There are new congestive changes with prominent large heart and some questionable atelectasis or infiltrate in the left hemithorax and right lower lung. Reported by Dr. Dc Marin) EKG: Pending ((my read): NSR 80bpm. GEORGE 158ms, QRS 82ms, QT/QTc 370/426ms. LAE, no ischemic changes evident.) Problem List - Problems (1) Prophylactic measure Assessment/Plan: SCDs pt started on ASA 81mg bowel regimen with senna and colace reglan 10mg Q6hrs PRN nausea Code(s): Z29.9 - ENCOUNTER FOR PROPHYLACTIC MEASURES, UNSPECIFIED (2) CAD (coronary artery disease) Assessment/Plan: Cardiology consulted in light of cardiac history coreg 25mg BID Plavix 75mg daily start ASA 81mg daily echo ordered Code(s): I25.10 - ATHSCL HEART DISEASE OF [place] CORONARY ARTERY W/O ANG PCTRS (3) DM (diabetes mellitus), type 2 with renal complications Assessment/Plan: pt takes no meds at home Fasting lipids and A1c for risk stratifcation fingerstick AC/HS Insulin SS Code(s): E11.29 - TYPE 2 DIABETES MELLITUS W OTH DIABETIC KIDNEY COMPLICATION Qualifiers: 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: unspecified petroleum 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 operator insulin use status Diabetes mellitus complication detail: with chronic kidney disease Chronic kidney disease stage: unspecified stage Qualified Code(s): E11.22 - Type 2 diabetes mellitus with diabetic chronic kidney disease (4) ESRD (end stage renal disease) on dialysis Assessment/Plan: pt followed by renal HD session completed today 07/01 continue renvelshamika Code(s): N18.6 - END STAGE RENAL DISEASE; Z99.2 - DEPENDENCE ON RENAL DIALYSIS (5) HLD (hyperlipidemia) Assessment/Plan: lipitor 20mg qhs Code(s): E78.5 - HYPERLIPIDEMIA, UNSPECIFIED (6) HTN (hypertension) Assessment/Plan: norvasc 10mg daily cardiac/renal diet Code(s): I10 - ESSENTIAL (PRIMARY) HYPERTENSION Qualifiers: Hypertension type: essential hypertension Qualified Code(s): I10 - Essential (primary) hypertension (7) Morbid obesity with BMI of 40.0-44.9, adult Assessment/Plan: weight loss encouraged Code(s): E66.01 - MORBID (SEVERE) OBESITY DUE TO EXCESS CALORIES; Z68.41 - BODY MASS INDEX (BMI) 40.0-44.9, ADULT Assessment/Plan DISPO: full code Visit type - Emergency Visit Emergency Visit: Yes ED Registration Date: 07/01/18 Care time: The patient presented to the Emergency Department on the above date and was hospitalized for further evaluation of their emergent condition. - New Patient This patient is new to me today: Yes Date on this admission: 07/01/18 - Critical Care Critical Care patient: No
[2018-07-01] MEDS ORDERED: SENNOSIDES 8.6MG TABLET (FP) PO PRN (19:19)
[2018-07-01] MEDS ORDERED: METOCLOPRAMIDE HCL INJECTION 10 MG/2 ML VIAL IVPUSH PRN (19:20)
[2018-07-01] MEDS ORDERED: ACETAMINOPHEN 1000 MG/100 ML VIAL (NON FORMULARY) IVPB PRN (19:26)
[2018-07-01 20:54] VITALS: BMI 43.7
[2018-07-01 21:00] LABS: CREATININE 5.5 mg/dL (0.55-1.3)
[2018-07-01] MEDS: PANTOPRAZOLE 40 MG TABLET (FP) PO SCH (21:08)
[2018-07-01] MEDS: DOCUSATE SODIUM 100 MG CAPSULE (FP) PO SCH ×2 (21:08→21:10)
[2018-07-01] MEDS: ATORVASTATIN CA 20 MG TABLET (FP) PO SCH (21:08)
[2018-07-01] MEDS: CARVEDILOL 25 MG TABLET (FP) PO SCH (21:09)
[2018-07-01] MEDS: INSULIN SLIDING SCALE (NOVOLOG) 1 VIAL SQ SCH (21:09)
[2018-07-01] MEDS: SEVELAMER CARBONATE 800 MG TAB (FP) PO SCH (21:09)
[2018-07-02] MEDS: INSULIN SLIDING SCALE (NOVOLOG) 1 VIAL SQ SCH ×4 (06:02→22:22)
[2018-07-02 07:06] LABS: ALBUMIN 3.2 g/dl (3.4-5.0); ALK PHOS 134 U/L (45-117); ANION GAP 11 MMOL/L (8-16); BILIRUBIN,TOTAL 0.6 mg/dL (0.2-1); BLOOD UREA NITROGEN 42 mg/dL (7-18); CALCIUM 8.7 mg/dL (8.5-10.1); CHLORIDE 95 mmol/L (98-107); CHOLESTEROL 118 mg/dL (50-200); CO2 31 mmol/L (21-32); GLUCOSE,RANDOM 134 mg/dL (74-106); HDL CHOLESTEROL 28 mg/dL (40-60); PHOSPHOROUS 5.8 mg/dL (2.5-4.9); POTASSIUM 4.3 mmol/L (3.5-5.1); SGOT/AST 14 U/L (15-37); SGPT/ALT 14 U/L (13-61); SODIUM 137 mmol/L (136-145); TOT PROT 7.5 g/dl (6.4-8.2); TRIGLYCERIDES 112 mg/dL (0-150)
[2018-07-02 07:28] LABS: CREATININE 8.8 mg/dL (0.55-1.3)
[2018-07-02] MEDS: SEVELAMER CARBONATE 800 MG TAB (FP) PO SCH ×3 (08:09→17:35)
[2018-07-02] MEDS: CARVEDILOL 25 MG TABLET (FP) PO SCH ×2 (09:21→22:16)
[2018-07-02] MEDS: PANTOPRAZOLE 40 MG TABLET (FP) PO SCH ×2 (09:21→22:16)
[2018-07-02] MEDS: ASPIRIN 81 MG CHEWABLE TABLETS PO SCH (09:21)
[2018-07-02] MEDS: amLODIPine BESYLATE 10 MG TABLET (FP) PO SCH (09:21)
[2018-07-02] MEDS: DOCUSATE SODIUM 100 MG CAPSULE (FP) PO SCH ×2 (09:21→22:16)
[2018-07-02] MEDS: CLOPIDOGREL BISULFATE 75 MG TABLET (FP) PO SCH (09:22)
--- NOTE | 2018-07-02 13:07 | PN ---
Physical Exam: SUBJECTIVE: Patient seen and examined at the bedside. she denies shortness of breath or chest tightness. feels better and able to ambulate without dyspnea. 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 xray shows possible pna. seen and evaluated by pulmonary. will repeat chest xray in am . creat 8.8. nephrology aware. dialysis planned for tomorrow. Vital Signs Period Temp Pulse Resp BP Sys/Canales Pulse Ox Last 24 Hr 97.9 F-99.6 F 73-97 16-20 108-162/56-88 100-100 GENERAL: The patient is awake, alert, and fully oriented, in no acute distress. HEAD: Normal with no signs of trauma. EYES: PERRL, extraocular movements intact, sclera anicteric, conjunctiva clear. No ptosis. ENT: Ears normal, nares patent, oropharynx clear without exudates, moist mucous membranes. NECK: Trachea midline, full range of motion, supple. LUNGS: Breath sounds equal, diminished, but no wheezing or crackles. HEART: Regular rate and rhythm ABDOMEN: Soft, nontender, nondistended, normoactive bowel sounds EXTREMITIES: no edema. NEUROLOGICAL: Normal speech, gait steady PSYCH: Normal mood, normal affect. SKIN: Warm, dry, normal turgor, no rashes or lesions noted Laboratory Results - last 24 hr 07/01/18 07/01/18 07/01/18 13:15 13:15 13:15 WBC 7.4 RBC 4.03 Hgb 11.8 Hct 34.8 D MCV 86.4 MCH 29.3 MCHC 33.9 RDW 14.6 Plt Count 197 MPV 9.3 Absolute Neuts (auto) 5.5 Neutrophils % 74.0 Lymphocytes % 15.8 D Monocytes % 5.9 Eosinophils % 3.1 Basophils % 1.2 Nucleated RBC % 0 PT with INR INR Sodium 134 L Potassium 4.6 Chloride 93 L Carbon Dioxide 30 Anion Gap 11 BUN 71 H Creatinine 12.2 H* Creat Clearance w eGFR 3.50 POC Glucometer Random Glucose 191 H Hemoglobin A1c % Calcium 8.9 Phosphorus 7.0 H Magnesium 2.5 H Total Bilirubin 0.3 AST 13 L ALT 15 Alkaline Phosphatase 161 H Creatine Kinase 195 H Creatine Kinase Index 0.9 CK-MB (CK-2) 1.8 Troponin I 0.02 B-Natriuretic Peptide 40090.2 H Total Protein 8.4 H Albumin 3.7 Triglycerides Cholesterol Total LDL Cholesterol HDL Cholesterol Lipase 239 Serum , Qual Negative Influenza A (Rapid) Influenza B (Rapid) 07/01/18 07/01/18 07/01/18 13:15 14:09 18:59 WBC RBC Hgb Hct MCV MCH MCHC RDW Plt Count MPV Absolute Neuts (auto) Neutrophils % Lymphocytes % Monocytes % Eosinophils % Basophils % Nucleated RBC % PT with INR 12.10 INR 1.03 Sodium Potassium Chloride Carbon Dioxide Anion Gap BUN 29 H Creatinine 5.5 H Creat Clearance w eGFR POC Glucometer 165 Random Glucose Hemoglobin A1c % Calcium Phosphorus Magnesium Total Bilirubin AST ALT Alkaline Phosphatase Creatine Kinase 161 Creatine Kinase Index 0.9 CK-MB (CK-2) 1.6 Troponin I 0.03 B-Natriuretic Peptide Total Protein Albumin Triglycerides Cholesterol Total LDL Cholesterol HDL Cholesterol Lipase Serum , Qual Influenza A (Rapid) Influenza B (Rapid) 07/01/18 07/01/18 07/02/18 21:03 22:00 05:30 WBC RBC Hgb Hct MCV MCH MCHC RDW Plt Count MPV Absolute Neuts (auto) Neutrophils % Lymphocytes % Monocytes % Eosinophils % Basophils % Nucleated RBC % PT with INR INR Sodium 137 Potassium 4.3 Chloride 95 L Carbon Dioxide 31 Anion Gap 11 BUN 42 H Creatinine 8.8 H* Creat Clearance w eGFR 5.10 POC Glucometer 147 Random Glucose 134 H Hemoglobin A1c % Calcium 8.7 Phosphorus 5.8 H Magnesium 2.0 Total Bilirubin 0.6 AST 14 L ALT 14 Alkaline Phosphatase 134 H Creatine Kinase Creatine Kinase Index CK-MB (CK-2) Troponin I B-Natriuretic Peptide Total Protein 7.5 Albumin 3.2 L Triglycerides 112 Cholesterol 118 Total LDL Cholesterol 74 HDL Cholesterol 28 L Lipase Serum , Qual Influenza A (Rapid) Negative Influenza B (Rapid) Negative 07/02/18 07/02/18 07/02/18 05:30 05:57 11:26 WBC RBC Hgb Hct MCV MCH MCHC RDW Plt Count MPV Absolute Neuts (auto) Neutrophils % Lymphocytes % Monocytes % Eosinophils % Basophils % Nucleated RBC % PT with INR INR Sodium Potassium Chloride Carbon Dioxide Anion Gap BUN Creatinine Creat Clearance w eGFR POC Glucometer 130 185 Random Glucose Hemoglobin A1c % 7.2 H Calcium Phosphorus Magnesium Total Bilirubin AST ALT Alkaline Phosphatase Creatine Kinase Creatine Kinase Index CK-MB (CK-2) Troponin I B-Natriuretic Peptide Total Protein Albumin Triglycerides Cholesterol Total LDL Cholesterol HDL Cholesterol Lipase Serum , Qual Influenza A (Rapid) Influenza B (Rapid) Active Medications Generic Name Dose Route Start Last Admin Trade Name Freq PRN Reason Stop Dose Admin Acetaminophen 1,000 mg 07/01/18 19:26 Ofirmev Injection - IVPB Q8H PRN PAIN LEVEL 6-10 Albuterol Sulfate 1 amp 07/01/18 17:06 Ventolin 0.083% Nebulizer Soln - NEB Q6H PRN SHORT OF BREATH/WHEEZING Amlodipine Besylate 10 mg 07/02/18 10:00 07/02/18 09:21 Norvasc - PO 10 mg DAILY SOLOMON Administration Aspirin 81 mg 07/02/18 10:00 07/02/18 09:21 Asa - PO 81 mg DAILY SOLOMON Administration Atorvastatin Calcium 20 mg 07/01/18 22:00 07/01/18 21:08 Lipitor - PO 20 mg HS SOLOMON Administration Carvedilol 25 mg 07/01/18 22:00 07/02/18 09:21 Coreg - PO 25 mg BID SOLOMON Administration Clopidogrel Bisulfate 75 mg 07/02/18 10:00 07/02/18 09:22 Plavix - PO 75 mg DAILY SOLOMON Administration Docusate Sodium 100 mg 07/01/18 19:30 07/02/18 09:21 Colace - PO 100 mg BID SOLOMON Administration Insulin Aspart 1 vial 07/01/18 22:00 07/02/18 11:32 Novolog Vial Sliding Scale - SQ 2 units ACHS SOLOMON Administration Protocol Metoclopramide HCl 10 mg 07/01/18 19:20 Reglan Injection - IVPUSH Q6H PRN NAUSEA AND/OR VOMITING Pantoprazole Sodium 40 mg 07/01/18 22:00 07/02/18 09:21 Protonix - PO 40 mg BID SOLOMON Administration Senna 2 tab 07/01/18 19:19 Senna - PO HS PRN CONSTIPATION Sevelamer Carbonate 2,400 mg 07/01/18 17:30 07/02/18 11:32 Renvela - PO 2,400 mg TIDCM SOLOMON Administration ASSESSMENT/PLAN: Patient is a 38 year old female with a significant past medical history of CAD (stent x1 on plavix), diabetes, ESRD (//Sat), and hypertension. She presented to the ED on 07/03/18 for chest pain and epigastric discomfort. She has also had cough with productive white/frothy sputum with streaks of blood with associated subjective fevers and chills. Imaging: CXR: large heart with questionable atelectasis or infiltrate in left hemothorax and right lung. Cardiology: CAD: on plavix Chest pain, now resolved. denies shortness of breath or dyspnea on exertion. able to lay flat in bed, clear speech. On coreq 25mg bid, plavix 75mg daily and asa 81mg daily Echo reviewed Endocrinology Diabetes. hmga1c 7.2 higher on previous admissions Will need to start on diabetic medications if not on any at home. Renal ESRD Dialysis on 07/01/18. for dialysis tomorrow per nephrology Pulmonary Bilateral pleural effusions seen on chest xray no fevers, wbc wnl. pulmonary following. will repeat chest xry in a.m fen tolerating po monitor electrolytes renal/diabetic diet prophy los < 48 hours, Visit type - Emergency Visit Emergency Visit: Yes ED Registration Date: 07/01/18 Care time: The patient presented to the Emergency Department on the above date and was hospitalized for further evaluation of their emergent condition. - New Patient This patient is new to me today: Yes Date on this admission: 07/02/18 - Critical Care Critical Care patient: No - Discharge Referral Referred to [facility] No
--- NOTE | 2018-07-02 14:09 | CON.CARD ---
Consult Consult Specialty:: Cardiology Reason for Consultation:: Chest pain - History of Present Illness History of Present Illness: 38 yo F with DM, HTN ESRD on HD and CAD sp PCI 2016 after presenting to ER with chest pain and with abnormal cardiac testing. She has had several days of intermittnet sharp chest pain associated with cough productive of blood tinged sputum with a sensation of acid in her mouth after cough. The pain usually occurs with the cough, is sharp, lasts several min and resolves. No pain with exertion. there is also feeling of cold and hot sensation. CXR showed possible infiltrate in Lt hemithorax with congestive changes. Since her admission, she feels well. Telem with NSR no arrhythmia. - History Source History Provided By: Patient Limitations to Obtaining History: No Limitations - Past Medical History Cardio/Vascular: Yes: CAD, HTN, Hyperlipdemia Pulmonary: Yes: Asthma Gastrointestinal: Yes: GERD Renal/: Yes: Renal Failure, Hemodialysis ...LMP: 06/25/18 ...LMP Comment: irreg, "every 3months" per patient ...: No Endocrine: Yes: Diabetes Mellitus - Past Surgical History Past Surgical History: Yes: AV Fistula/Graft, Stent - Alcohol/Substance Use Hx Alcohol Use: No History of Substance Use: reports: None - Smoking History Smoking history: Never smoked Have you smoked in the past 12 months: No Aproximately how many cigarettes per day: 0 - Social History 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: 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 per week) History of Recent Travel: No Home Medications - Allergies Allergies/Adverse Reactions: Allergies Allergy/AdvReac Type Severity Reaction Status Date / Time No Known Allergies Allergy Verified 07/01/18 11:54 - Home Medications Home Medications: Ambulatory Orders Carvedilol [Coreg -] 25 mg PO BID tablet 01/19/16 Clopidogrel Bisulfate [Plavix -] 75 mg PO DAILY tablet 01/19/16 Pantoprazole Sodium [Protonix -] 40 mg PO BID tablet.ec 01/19/16 Sevelamer Carbonate [Renvela -] 2,400 mg PO TIDCM tab 01/19/16 Amlodipine Besylate 10 mg PO DAILY 07/01/18 Atorvastatin Ca [Lipitor] 20 mg PO HS 07/01/18 Family Disease History - Family Disease History Family Disease History: Other: Father ( HIV), Mother (alive DMII, b/l BKA), Sister ( (30) from heart disease, DMII, ESRD on HD, HTN) Review of Systems - Review of Systems Constitutional: reports: Chills, Diaphoresis Eyes: reports: No Symptoms HENT: reports: No Symptoms Neck: reports: No Symptoms Cardiovascular: reports: Chest Pain. denies: Edema, Palpitations, Shortness of Breath Respiratory: reports: Cough. denies: SOB, SOB on Exertion Vital Signs: Vital Signs Temperature 97.9 F 07/02/18 08:27 Pulse Rate 77 07/02/18 08:27 Respiratory Rate 20 07/02/18 09:00 Blood Pressure 141/80 07/02/18 08:27 O2 Sat by Pulse Oximetry (%) 100 07/02/18 09:00 Constitutional: Yes: Well Nourished, No Distress Eyes: Yes: Conjunctiva Clear, EOM Intact HENT: Yes: Atraumatic, Normocephalic Neck: Yes: Supple, Trachea Midline Respiratory: Yes: Regular, CTA Bilaterally Gastrointestinal: Yes: Normal Bowel Sounds, Soft Cardiovascular: Yes: Regular Rate and Rhythm JVD: No Carotid Bruit: No PMI: Non-Displaced Heart Sounds: Yes: S1, S2 Murmur: No: Systolic Murmur, Diastolic Murmur Edema: No - Other Data Labs, Other Data: CBC, BMP 07/01/18 13:15 07/02/18 05:30 INR, PTT INR 1.03 (0.83-1.09) 07/01/18 13:15 Troponin, BNP 07/01/18 07/01/18 13:15 18:59 Troponin I 0.02 0.03 B-Natriuretic Peptide 34407.2 H Troponin, BNP 07/01/18 07/01/18 13:15 18:59 Troponin I 0.02 0.03 B-Natriuretic Peptide 49971.[address] T changes. Imaging - Results Chest X-ray: Report Reviewed Problem List - Problems (1) Chest pain Code(s): R07.9 - CHEST PAIN, UNSPECIFIED (2) CAD (coronary artery disease) Code(s): I25.10 - ATHSCL HEART DISEASE OF [place] CORONARY ARTERY W/O ANG PCTRS Assessment/Plan 38 F CAD sp PCI 2015. Admitted with productive cough which brings on her chest burning and a sensation of "Acid reflux". No symptoms with exertion. Her ECG and cardiac enzymes are normal. CXR with possible pulmonary infiltrate. Her CP is atypical for myocardial ischemia. ?infiltrate on Xray on the left side can explain some of her symptoms in addition to GERD. While she should have a cardiac evaluation done, there is possibly an alternate expalnation for her presentation. Cardiac evaluation should be done on a routine out patient basis, or if treatment does not improve symptoms. Will see as needed.
--- NOTE | 2018-07-02 14:20 | ECHO ---
Name: AMERICO PERDOMO Exam:Adult Echocardiogram Study Date: 07/02/2018 10:20 AM Age: 38 yrs Reason For Study: H/O CAD C/O MID STERNAL CHEST PAIN Height: 72 in Weight: 310 lb BSA: 2.6 m2 MMode/2D Measurements & Calculations IVSd: 0.99 cm Ao root diam: 3.0 cm LVIDd: 5.8 cm LA dimension: 3.4 cm LVIDs: 3.8 cm LVPWd: 0.96 cm EDV(Teich): 165.1 ml LVOT diam: 2.0 cm ESV(Teich): 62.3 ml Doppler Measurements & Calculations MV E max jose miguel: 111.6 cm/sec Ao V2 max: 206.3 cm/sec MV A max jose miguel: 88.4 cm/sec Ao max P.0 mmHg MV E/A: 1.3 MV dec time: 0.26 sec TONIO(V,D): 1.2 cm2 LV V1 max P.6 mmHg SV(LVOT): 49.8 ml LV V1 mean P.4 mmHg LV V1 max: 80.6 cm/sec LV V1 mean: 55.3 cm/sec LV V1 VTI: 16.2 cm TR max jose miguel: 221.3 cm/sec Med Peak E' Jose Miguel: 7.8 cm/sec TR max P.6 mmHg Med E/e': 14.3 Lat Peak E' Jose Miguel: 16.8 cm/sec Lat E/e': 6.6 Procedure A two-dimensional transthoracic echocardiogram with color flow and Doppler was performed. The study w as technically difficult with many images being suboptimal in quality. Left Ventricle The left ventricular size, thickness and function are normal. The left ventricular ejection fraction is normal. The transmitral spectral Doppler flow pattern is normal for age. Regional wall motion abnorma lities cannot be excluded due to limited visualization. Right Ventricle The right ventricle is not well visualized. Atria Normal left and right atrial size and function. Mitral Valve There is mild mitral valve thickening. There is no mitral valve stenosis. There is mild mitral regurg itation. Tricuspid Valve There is mild tricuspid valve thickening. There is no tricuspid stenosis. There is mild tricuspid regurgitation. Right ventricular systolic pressure is normal. Aortic Valve The aortic valve is not well visualized. No hemodynamically significant valvular aortic stenosis. No aortic regurgitation is present. Pulmonic Valve The pulmonic valve is not well visualized. Great Vessels The aortic root is normal size. Pericardium/Pleura There is no pericardial effusion. Interpretation Summary The left ventricular size, thickness and function are normal The left ventricular ejection fraction is normal. The study was technically difficult with many images being suboptimal in quality. Regional wall motion abnormalities cannot be excluded due to limited visualization. There is mild tricuspid regurgitation. Right ventricular systolic pressure is normal. There is mild mitral regurgitation. The transmitral spectral Doppler flow pattern is normal for age. The right ventricle is not well visualized. MD Dc Cuevas 07/02/2018 02:20 PM
--- NOTE | 2018-07-02 15:03 | PN ---
Progress Note (short form) - Note Progress Note: PULMONARY CONSULTATION DICTATED 07/02/18 IMP DYSPNEA LIKELY VOLUME OVERLOAD BILATERAL PLEURAL EFFUSIONS ASHD S/P STENT ASTHMA URI CHEST PAIN ESRD ON HD DM HTN HLD LIKELY OSAS GLAUCOMA PLAN HD PER RENAL F/U CHEST X-RAY INHALED BRONCHODILATORS SLEEP SCREEN STRICT I+Os MONITOR KETAN GAY Problem List - Problems (1) Chest pain Code(s): R07.9 - CHEST PAIN, UNSPECIFIED (2) Nausea and vomiting Code(s): R11.2 - NAUSEA WITH VOMITING, UNSPECIFIED Qualifiers: Vomiting type: unspecified Vomiting Intractability: non-intractable Qualified Code(s): R11.2 - Nausea with vomiting, unspecified (3) Prophylactic measure Code(s): Z29.9 - ENCOUNTER FOR PROPHYLACTIC MEASURES, UNSPECIFIED (4) ESRD (end stage renal disease) on dialysis Code(s): N18.6 - END STAGE RENAL DISEASE; Z99.2 - DEPENDENCE ON RENAL DIALYSIS (5) Stented coronary artery Code(s): Z95.5 - PRESENCE OF CORONARY ANGIOPLASTY IMPLANT AND GRAFT (6) CAD (coronary artery disease) Code(s): I25.10 - ATHSCL HEART DISEASE OF [place] CORONARY ARTERY W/O ANG PCTRS (7) DM (diabetes mellitus), type 2 with renal complications Code(s): E11.29 - TYPE 2 DIABETES MELLITUS W OTH DIABETIC KIDNEY COMPLICATION Qualifiers: Diabetes mellitus senior living insulin use: 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 Diabetes mellitus complication detail: with chronic kidney disease Chronic kidney disease stage: unspecified stage Qualified Code(s): E11.22 - Type 2 diabetes mellitus with diabetic chronic kidney disease (8) HLD (hyperlipidemia) Code(s): E78.5 - HYPERLIPIDEMIA, UNSPECIFIED (9) HTN (hypertension) Code(s): I10 - ESSENTIAL (PRIMARY) HYPERTENSION Qualifiers: Hypertension type: essential hypertension Qualified Code(s): I10 - Essential (primary) hypertension (10) Morbid obesity with BMI of 40.0-44.9, adult Code(s): E66.01 - MORBID (SEVERE) OBESITY DUE TO EXCESS CALORIES; Z68.41 - BODY MASS INDEX (BMI) 40.0-44.9, ADULT (11) Volume overload Code(s): E87.70 - FLUID OVERLOAD, UNSPECIFIED (12) Dyspnea Code(s): R06.00 - DYSPNEA, UNSPECIFIED
--- NOTE | 2018-07-02 16:14 | CONS ---
DATE OF CONSULTATION: 07/02/2018 PULMONARY CONSULTATION REFERRING PHYSICIAN: Gina Wilks NP Patient is a 38-year-old black female with a past medical history of GERD; end-stage renal disease on hemodialysis Saturday, , Saturday; diabetes type 2; history of right eye blindness; ASHD status post stent; hypertension; obesity; admitted to [facility] with complaint of midsternal chest pain x1 week. Patient states for about a week or so she has been having increasing GERD symptoms. She also complained of some sharp, burning chest pain, nonradiating to the arms, back, or jaw. She started developing some nausea and vomiting and had some mild heme noted in her vomitus. Apparently, she has also had some increasing shortness of breath, cough productive of white sputum, questionable blood streaks, had chills, and no fever. Of note is that patient missed her hemodialysis on Saturday prior to admission. In the ER, she was noted to be comfortable. O2 saturation is 96%. She is noted to have x-ray that revealed cardiomegaly with bilateral congestion. On admission, she underwent hemodialysis with clinical improvement. Patient is a nonsmoker. There is no history of occupational exposure to chemicals or fumes. She states that she has asthma and uses her inhaled bronchodilator on an infrequent basis. Denies any orthopnea or PND. Denies any recent history of DVT or PE in the past. PAST MEDICAL HISTORY: Again includes ASHD, status post stents, hypertension, hyperlipidemia, GERD, end-stage renal disease on hemodialysis, diabetes mellitus, history of right eye blindness and asthma. REVIEW OF SYSTEMS: Currently no shortness of breath. No cough. No hemoptysis. No abdominal pain. No nausea. No vomiting. Chest pain resolved. No fever. Positive chills. No lower extremity edema. CURRENT MEDICATIONS: Include IV Tylenol, albuterol, Coreg, Colace, senna, Norvasc, Lipitor, aspirin, Renvela, Plavix, Reglan, Protonix. PHYSICAL EXAMINATION: General: Patient is an obese female, wide awake, alert, in no acute distress. Vital Signs: She is afebrile, blood pressure is 141/80, respiratory rate is 20, and O2 saturation is 100% on room air. HEENT: Exam is normocephalic, atraumatic. Neck: Supple. Heart: Regular, S1, S2. Chest: Clear. Abdomen: Soft. Bowel sounds positive. Extremities: No cyanosis. Edema. LABORATORIES: WBC is 7.4, hemoglobin 11.8, hematocrit 34.8, with a platelet count 197,000. BUN 42, creatinine 8.8. CHEST X-RAY: Cardiomegaly with bilateral pulmonary vascular congestion. IMPRESSION: Dyspnea likely secondary to: 1. Volume overload. 2. Bilateral pleural effusion secondary to fluid overload. 3. History of asthma. 4. Chest pain likely secondary to gastroesophageal reflux disease. 5. Possible recent upper respiratory infection. 6. End-stage renal disease on hemodialysis. 7. Diabetes. 8. Hypertension. 9. Likely obstructive sleep apnea. 10. Glaucoma. PLAN: Hemodialysis as per Renal. Obtain followup chest x-ray. Inhaled bronchodilators. Strict I's and O's. Obtain sleep screen. Monitor electrolytes. RAINA GAY M.D. RADHA/[id number]
--- NOTE | 2018-07-02 21:02 | PN ---
Progress Note (short form) - Note Progress Note: 38 year old femal with history of asthma, hypertension, end satge renal disease and obesity admitted with volume overload and shortness of breath. Patient is feeling better today. Vitals Vital Signs (72 hours) 07/01/18 07/01/18 07/01/18 11:51 15:39 16:10 Temperature 98.4 F 98.1 F Pulse Rate 86 92 H Pulse Rate [ 84 Apical] Respiratory 18 16 18 Rate Blood Pressure 166/86 150/84 Blood Pressure 162/82 [Right Arm] O2 Sat by Pulse 96 100 Oximetry (%) 07/01/18 07/01/18 07/01/18 16:15 16:45 17:15 Temperature Pulse Rate 80 80 77 Pulse Rate [ Apical] Respiratory 18 18 18 Rate Blood Pressure 162/88 136/77 127/68 Blood Pressure [Right Arm] O2 Sat by Pulse Oximetry (%) 07/01/18 07/01/18 07/01/18 17:45 18:15 18:45 Temperature Pulse Rate 77 77 80 Pulse Rate [ Apical] Respiratory 18 18 18 Rate Blood Pressure 125/70 118/56 L 127/70 Blood Pressure [Right Arm] O2 Sat by Pulse Oximetry (%) 07/01/18 07/01/18 07/01/18 19:15 19:32 21:00 Temperature Pulse Rate 97 H 80 73 Pulse Rate [ Apical] Respiratory 18 18 18 Rate Blood Pressure 117/65 145/85 146/82 Blood Pressure [Right Arm] O2 Sat by Pulse Oximetry (%) 07/02/18 07/02/18 07/02/18 01:21 05:00 08:27 Temperature 99.6 F 97.9 F 97.9 F Pulse Rate 84 86 77 Pulse Rate [ Apical] Respiratory 18 20 20 Rate Blood Pressure 108/56 L 134/74 141/80 Blood Pressure [Right Arm] O2 Sat by Pulse Oximetry (%) 07/02/18 07/02/18 07/02/18 09:00 14:00 17:00 Temperature 98.5 F 97.9 F Pulse Rate 72 Pulse Rate [ Apical] Respiratory 20 73 H 20 Rate Blood Pressure 132/77 123/52 L Blood Pressure [Right Arm] O2 Sat by Pulse 100 Oximetry (%) 07/02/18 19:46 Temperature Pulse Rate Pulse Rate [ Apical] Respiratory 20 Rate Blood Pressure Blood Pressure [Right Arm] O2 Sat by Pulse 95 Oximetry (%) Lungs; coarse breath sound in both lung lee Heart: S1 S2 Regular, no gallop Abd: Full, soft, non-tender, BS normal Ext; tRACE EDMA Access: postive bruit left arm AVF. Labs: CBCD WBC 7.4 K/mm3 (4.0-10.0) 07/01/18 13:15 RBC 4.03 M/mm3 (3.60-5.2) 07/01/18 13:15 Hgb 11.8 GM/dL (10.7-15.3) 07/01/18 13:15 Hct 34.8 % (32.4-45.2) D 07/01/18 13:15 MCV 86.4 fl (80-96) 07/01/18 13:15 MCHC 33.9 g/dl (32.0-36.0) 07/01/18 13:15 RDW 14.6 % (11.6-15.6) 07/01/18 13:15 Plt Count 197 K/MM3 (134-434) 07/01/18 13:15 MPV 9.3 fl (7.5-11.1) 07/01/18 13:15 CMP Sodium 137 mmol/L (136-145) 07/02/18 05:30 Potassium 4.3 mmol/L (3.5-5.1) 07/02/18 05:30 Chloride 95 mmol/L (98-107) L 07/02/18 05:30 Carbon Dioxide 31 mmol/L (21-32) 07/02/18 05:30 Anion Gap 11 MMOL/L (8-16) 07/02/18 05:30 BUN 42 mg/dL (7-18) H 07/02/18 05:30 Creatinine 8.8 mg/dL (0.55-1.3) H* 07/02/18 05:30 Creat Clearance w eGFR 5.10 (>60) 07/02/18 05:30 Calcium 8.7 mg/dL (8.5-10.1) 07/02/18 05:30 Total Bilirubin 0.6 mg/dL (0.2-1) 07/02/18 05:30 AST 14 U/L (15-37) L 07/02/18 05:30 ALT 14 U/L (13-61) 07/02/18 05:30 Alkaline Phosphatase 134 U/L (45-117) H 07/02/18 05:30 Total Protein 7.5 g/dl (6.4-8.2) 07/02/18 05:30 Albumin 3.2 g/dl (3.4-5.0) L 07/02/18 05:30 A/P: 38 year old female with end stage renal disease. Patient is tentatively scheduled for hemodialysis in a.m. Discharge planning as per PMD. Problem List - Problems (1) DM (diabetes mellitus), type 2 with renal complications Code(s): E11.29 - TYPE 2 DIABETES MELLITUS W OTH DIABETIC KIDNEY COMPLICATION Qualifiers: Diabetes mellitus chcf insulin use: unspecified chcf insulin use status Diabetes mellitus complication detail: with chronic kidney disease Chronic kidney disease stage: unspecified stage Qualified Code(s): E11.22 - Type 2 diabetes mellitus with diabetic chronic kidney disease (2) ESRD (end stage renal disease) on dialysis Code(s): N18.6 - END STAGE RENAL DISEASE; Z99.2 - DEPENDENCE ON RENAL DIALYSIS (3) HTN (hypertension) Code(s): I10 - ESSENTIAL (PRIMARY) HYPERTENSION Qualifiers: Hypertension type: essential hypertension Qualified Code(s): I10 - Essential (primary) hypertension
[2018-07-02] MEDS ORDERED: SODIUM CHLORIDE 250 ML IV PRN (21:04)
[2018-07-02] MEDS: ATORVASTATIN CA 20 MG TABLET (FP) PO SCH (22:16)
[2018-07-03] MEDS: INSULIN SLIDING SCALE (NOVOLOG) 1 VIAL SQ SCH ×2 (06:22→11:28)
[2018-07-03 06:55] VITALS: TEMP 98.2
[2018-07-03 07:12] LABS: HBSAG SCREEN Negative (Negative); HEP B CORE AB, TOT Negative (Negative)
[2018-07-03] MEDS: SEVELAMER CARBONATE 800 MG TAB (FP) PO SCH ×2 (08:08→11:30)
[2018-07-03] MEDS: ASPIRIN 81 MG CHEWABLE TABLETS PO SCH (09:09)
[2018-07-03] MEDS: CARVEDILOL 25 MG TABLET (FP) PO SCH (09:09)
[2018-07-03] MEDS: PANTOPRAZOLE 40 MG TABLET (FP) PO SCH (09:09)
[2018-07-03] MEDS: DOCUSATE SODIUM 100 MG CAPSULE (FP) PO SCH (09:09)
[2018-07-03] MEDS: CLOPIDOGREL BISULFATE 75 MG TABLET (FP) PO SCH (09:09)
[2018-07-03] MEDS: amLODIPine BESYLATE 10 MG TABLET (FP) PO SCH (09:09)
[2018-07-03 11:00] LABS: BASO % 0.9 % (0-2.0); EOS % 4.3 % (0-4.5); HEMATOCRIT 31.9 % (32.4-45.2); HEMOGLOBIN 10.7 GM/dL (10.7-15.3); LYMPH % 20.4 % (8-40); MCH 29.2 pg (25.7-33.7); MCHC 33.6 g/dl (32.0-36.0); MEAN CELL VOLUME 86.9 fl (80-96); MEAN PLT VOLUME 9.7 fl (7.5-11.1); NEUT % 67.4 % (42.8-82.8); PLATELET COUNT 165 K/MM3 (134-434); RBC 3.67 M/mm3 (3.60-5.2); RDW 14.3 % (11.6-15.6); WHITE BLOOD COUNT 7.2 K/mm3 (4.0-10.0)
[2018-07-03 11:32] LABS: ALBUMIN 3.1 g/dl (3.4-5.0); ALK PHOS 156 U/L (45-117); ANION GAP 11 MMOL/L (8-16); BILIRUBIN,TOTAL 0.4 mg/dL (0.2-1); BLOOD UREA NITROGEN 62 mg/dL (7-18); CALCIUM 8.8 mg/dL (8.5-10.1); CHLORIDE 95 mmol/L (98-107); CO2 27 mmol/L (21-32); GLUCOSE,RANDOM 155 mg/dL (74-106); MAGNESIUM 2.3 mg/dL (1.8-2.4); POTASSIUM 4.6 mmol/L (3.5-5.1); SGOT/AST 14 U/L (15-37); SGPT/ALT 12 U/L (13-61); SODIUM 133 mmol/L (136-145)
--- NOTE | 2018-07-03 13:14 | DS ---
Physical Exam: SUBJECTIVE: Patient seen and examined at the bedside. no chest pain, no shortness of breath. OBJECTIVE: discharge after dialysis today Vital Signs Period Temp Pulse Resp BP Sys/Canales Pulse Ox Last 24 Hr 97.8 F-98.7 F 69-81 18-73 108-145/48-78 95-95 PHYSICAL EXAM GENERAL: The patient is awake, alert, and fully oriented, in no acute distress. HEAD: Normal with no signs of trauma. EYES: PERRL, extraocular movements intact, sclera anicteric, conjunctiva clear. No ptosis. ENT: Ears normal, nares patent, oropharynx clear without exudates, moist mucous membranes. NECK: Trachea midline, full range of motion, supple. LUNGS: Breath sounds equal, diminished, but no wheezing or crackles. HEART: Regular rate and rhythm ABDOMEN: Soft, nontender, nondistended, normoactive bowel sounds EXTREMITIES: no edema. NEUROLOGICAL: Normal speech, gait steady PSYCH: Normal mood, normal affect. SKIN: Warm, dry, normal turgor, no rashes or lesions noted LABS Laboratory Results - last 24 hr 07/01/18 07/01/18 07/02/18 16:55 16:55 16:26 WBC RBC Hgb Hct MCV MCH MCHC RDW Plt Count MPV Absolute Neuts (auto) Neutrophils % Lymphocytes % Monocytes % Eosinophils % Basophils % Nucleated RBC % Sodium Potassium Chloride Carbon Dioxide Anion Gap BUN Creatinine Creat Clearance w eGFR POC Glucometer 166 Random Glucose Calcium Magnesium Total Bilirubin AST ALT Alkaline Phosphatase Total Protein Albumin Hepatitis A Ab Total Negative Hep Bs Antigen Negative Hep Bs Antibody Reactive Hep B Core Total Ab Negative Hep C Ab Diagnostic 0.1 07/02/18 07/03/18 07/03/18 22:19 05:35 10:10 WBC 7.2 RBC 3.67 Hgb 10.7 Hct 31.9 L MCV 86.9 MCH 29.2 MCHC 33.6 RDW 14.3 Plt Count 165 MPV 9.7 Absolute Neuts (auto) 4.8 Neutrophils % 67.4 Lymphocytes % 20.4 D Monocytes % 7.0 Eosinophils % 4.3 Basophils % 0.9 Nucleated RBC % 0 Sodium Potassium Chloride Carbon Dioxide Anion Gap BUN Creatinine Creat Clearance w eGFR POC Glucometer 237 154 Random Glucose Calcium Magnesium Total Bilirubin AST ALT Alkaline Phosphatase Total Protein Albumin Hepatitis A Ab Total Hep Bs Antigen Hep Bs Antibody Hep B Core Total Ab Hep C Ab Diagnostic 07/03/18 07/03/18 10:10 11:16 WBC RBC Hgb Hct MCV MCH MCHC RDW Plt Count MPV Absolute Neuts (auto) Neutrophils % Lymphocytes % Monocytes % Eosinophils % Basophils % Nucleated RBC % Sodium 133 L Potassium 4.6 Chloride 95 L Carbon Dioxide 27 Anion Gap 11 BUN 62 H Creatinine 11.0 H* Creat Clearance w eGFR 3.94 POC Glucometer 164 Random Glucose 155 H Calcium 8.8 Magnesium 2.3 Total Bilirubin 0.4 AST 14 L ALT 12 L Alkaline Phosphatase 156 H Total Protein 7.0 Albumin 3.1 L Hepatitis A Ab Total Hep Bs Antigen Hep Bs Antibody Hep B Core Total Ab Hep C Ab Diagnostic HOSPITAL COURSE: Date of Admission:07/01/18 Date of Discharge: 07/03/18 Patient is a 38 year old female with a significant past medical history of CAD (stent x1 on plavix), diabetes, ESRD (//Sat), and hypertension. She presented to the ED on 07/03/18 for chest pain and epigastric discomfort. She has also had cough with productive white/frothy sputum with streaks of blood with associated subjective fevers and chills. Imaging: CXR: large heart with questionable atelectasis or infiltrate in left hemothorax and right lung. Cardiology: CAD: on plavix Chest pain, now resolved. denies shortness of breath or dyspnea on exertion. able to lay flat in bed, clear speech. On coreq 25mg bid, plavix 75mg daily and asa 81mg daily Echo reviewed. She was seen and cleared by cardiology for discharge home. Endocrinology Diabetes. hmga1c 7.2 higher on previous admissions Patient on insulin at home with sliding scale. Renal ESRD Dialysis today, then d/c home. Pulmonary Bilateral pleural effusions seen on chest xray, repeat chest xray today with congestive changes and minimal fuid. No shortess of breath, tolerating room air. no fevers, wbc wnl. She denies chills or discomfort. No further episodes of productive cough or sputum. follow up with PCP and pulmonary as an outpatient. discharge home. Minutes to complete discharge: 60 Discharge Summary Reason For Visit: PRESENCE OF STENT IN CORNONARY ARTERY Current Active Problems Chest pain (Acute) Dyspnea (Acute) Nausea and vomiting (Acute) Prophylactic measure (Acute) Volume overload (Acute) ESRD (end stage renal disease) on dialysis (Chronic) Stented coronary artery (Chronic) Condition: Stable - Instructions Diet, Activity, Other Instructions: Mrs Dewey: You came in for chest pain and your cardiac workup is negative. You will be going home today. You were seen by the pulmonary and shipping and receiving specialist. Please follow up with them as an outpatient. Their information is enclosed. thank you for allowing us to care for you. Referrals: Marek Lux MD [Staff Physician] - Disposition: HOME - Home Medications Comprehensive Discharge Medication List: Ambulatory Orders Carvedilol [Coreg -] 25 mg PO BID tablet 01/19/16 Clopidogrel Bisulfate [Plavix -] 75 mg PO DAILY tablet 01/19/16 Pantoprazole Sodium [Protonix -] 40 mg PO BID tablet.ec 01/19/16 Sevelamer Carbonate [Renvela -] 2,400 mg PO TIDCM tab 01/19/16 Amlodipine Besylate 10 mg PO DAILY 07/01/18 Atorvastatin Ca [Lipitor] 20 mg PO HS 07/01/18 Aspirin [ASA -] 81 mg PO DAILY tab.chew 07/03/18 Docusate Sodium [Colace -] 100 mg PO BID capsule 07/03/18 Insulin Sliding Scale [Novolog Vial Sliding Scale -] 1 vial SQ ACHS units 07/03 This patient is new to me today: No Emergency Visit: Yes ED Registration Date: 07/01/18 Care time: The patient presented to the Emergency Department on the above date and was hospitalized for further evaluation of their emergent condition. Critical Care patient: No - Discharge Referral Referred to [facility] No
--- NOTE | 2018-07-03 13:50 | PN ---
Progress Note (short form) - Note Progress Note: S/P HD. Feels better. Afebrile. No acute events overnight. Intake & Output 06/30/18 07/01/18 07/02/18 07/03/18 23:59 23:59 23:59 23:59 Intake Total 360 850 50 Balance 360 850 50 Weight 322 lb 9.6 oz 321 lb 9.6 oz 328 lb 3.2 oz Last Vital Signs Temp Pulse Resp BP Pulse Ox 98.2 F 72 18 114/56 L 95 07/03/18 10:00 07/03/18 13:34 07/03/18 13:34 07/03/18 13:34 07/03/18 08:02 Active Medications Acetaminophen (Ofirmev Injection -) 1,000 mg IVPB Q8H PRN PRN Reason: PAIN LEVEL 6-10 Albuterol Sulfate (Ventolin 0.083% Nebulizer Soln -) 1 amp NEB Q6H PRN PRN Reason: SHORT OF BREATH/WHEEZING Last Admin: 07/03/18 07:27 Dose: 1 amp Amlodipine Besylate (Norvasc -) 10 mg PO DAILY [facility] Last Admin: 07/03/18 09:09 Dose: 10 mg Aspirin (Asa -) 81 mg PO DAILY [facility] Last Admin: 07/03/18 09:09 Dose: 81 mg Atorvastatin Calcium (Lipitor -) 20 mg PO HS [facility] Last Admin: 07/02/18 22:16 Dose: 20 mg Carvedilol (Coreg -) 25 mg PO BID [facility] Last Admin: 07/03/18 09:09 Dose: 25 mg Clopidogrel Bisulfate (Plavix -) 75 mg PO DAILY [facility] Last Admin: 07/03/18 09:09 Dose: 75 mg Docusate Sodium (Colace -) 100 mg PO BID [facility] Last Admin: 07/03/18 09:09 Dose: 100 mg Sodium Chloride (Normal Saline -) 250 mls @ 3,000 mls/hr IV PRN PRN PRN Reason: Hypotension during Dialysis Stop: 07/03/18 21:07 Insulin Aspart (Novolog Vial Sliding Scale -) 1 vial SQ ACHS [facility]; Protocol Last Admin: 07/03/18 11:28 Dose: Not Given Metoclopramide HCl (Reglan Injection -) 10 mg IVPUSH Q6H PRN PRN Reason: NAUSEA AND/OR VOMITING Pantoprazole Sodium (Protonix -) 40 mg PO BID [facility] Last Admin: 07/03/18 09:09 Dose: 40 mg Senna (Senna -) 2 tab PO HS PRN PRN Reason: CONSTIPATION Sevelamer Carbonate (Renvela -) 2,400 mg PO TIDCM [facility] Last Admin: 07/03/18 11:30 Dose: 2,400 mg GENERAL: The patient is awake, alert, and oriented, in no acute distress. HEAD: Normal with no signs of trauma. EYES: sclera anicteric, conjunctiva clear. No ptosis. ENT: Ears normal, nares patent, oropharynx clear without exudates, moist mucous membranes. NECK: Trachea midline, full range of motion, supple. LUNGS: diminished at the bases, but no wheezing or crackles. HEART: Regular rate and rhythm ABDOMEN: Soft, nontender, nondistended, normoactive bowel sounds EXTREMITIES: no edema. NEUROLOGICAL: Non-focal PSYCH: Normal mood, normal affect. SKIN: Warm, dry, normal turgor, no rashes or lesions noted Laboratory Results - last 24 hr 07/01/18 07/01/18 07/02/18 16:55 16:55 16:26 WBC RBC Hgb Hct MCV MCH MCHC RDW Plt Count MPV Absolute Neuts (auto) Neutrophils % Lymphocytes % Monocytes % Eosinophils % Basophils % Nucleated RBC % Sodium Potassium Chloride Carbon Dioxide Anion Gap BUN Creatinine Creat Clearance w eGFR POC Glucometer 166 Random Glucose Calcium Magnesium Total Bilirubin AST ALT Alkaline Phosphatase Total Protein Albumin Hepatitis A Ab Total Negative Hep Bs Antigen Negative Hep Bs Antibody Reactive Hep B Core Total Ab Negative Hep C Ab Diagnostic 0.1 07/02/18 07/03/18 07/03/18 22:19 05:35 10:10 WBC 7.2 RBC 3.67 Hgb 10.7 Hct 31.9 L MCV 86.9 MCH 29.2 MCHC 33.6 RDW 14.3 Plt Count 165 MPV 9.7 Absolute Neuts (auto) 4.8 Neutrophils % 67.4 Lymphocytes % 20.4 D Monocytes % 7.0 Eosinophils % 4.3 Basophils % 0.9 Nucleated RBC % 0 Sodium Potassium Chloride Carbon Dioxide Anion Gap BUN Creatinine Creat Clearance w eGFR POC Glucometer 237 154 Random Glucose Calcium Magnesium Total Bilirubin AST ALT Alkaline Phosphatase Total Protein Albumin Hepatitis A Ab Total Hep Bs Antigen Hep Bs Antibody Hep B Core Total Ab Hep C Ab Diagnostic 07/03/18 07/03/18 10:10 11:16 WBC RBC Hgb Hct MCV MCH MCHC RDW Plt Count MPV Absolute Neuts (auto) Neutrophils % Lymphocytes % Monocytes % Eosinophils % Basophils % Nucleated RBC % Sodium 133 L Potassium 4.6 Chloride 95 L Carbon Dioxide 27 Anion Gap 11 BUN 62 H Creatinine 11.0 H* Creat Clearance w eGFR 3.94 POC Glucometer 164 Random Glucose 155 H Calcium 8.8 Magnesium 2.3 Total Bilirubin 0.4 AST 14 L ALT 12 L Alkaline Phosphatase 156 H Total Protein 7.0 Albumin 3.1 L Hepatitis A Ab Total Hep Bs Antigen Hep Bs Antibody Hep B Core Total Ab Hep C Ab Diagnostic Problem List - Problems (1) Chest pain Code(s): R07.9 - CHEST PAIN, UNSPECIFIED (2) Nausea and vomiting Code(s): R11.2 - NAUSEA WITH VOMITING, UNSPECIFIED Qualifiers: Vomiting type: unspecified Vomiting Intractability: non-intractable Qualified Code(s): R11.2 - Nausea with vomiting, unspecified (3) Prophylactic measure Code(s): Z29.9 - ENCOUNTER FOR PROPHYLACTIC MEASURES, UNSPECIFIED (4) ESRD (end stage renal disease) on dialysis Code(s): N18.6 - END STAGE RENAL DISEASE; Z99.2 - DEPENDENCE ON RENAL DIALYSIS (5) Stented coronary artery Code(s): Z95.5 - PRESENCE OF CORONARY ANGIOPLASTY IMPLANT AND GRAFT (6) CAD (coronary artery disease) Code(s): I25.10 - ATHSCL HEART DISEASE OF [place] CORONARY ARTERY W/O ANG PCTRS (7) DM (diabetes mellitus), type 2 with renal complications Code(s): E11.29 - TYPE 2 DIABETES MELLITUS W OTH DIABETIC KIDNEY COMPLICATION Qualifiers: Diabetes mellitus termite treater insulin use: unspecified half-way insulin use status Diabetes mellitus complication detail: with chronic kidney disease Chronic kidney disease stage: unspecified stage Qualified Code(s): E11.22 - Type 2 diabetes mellitus with diabetic chronic kidney disease (8) HLD (hyperlipidemia) Code(s): E78.5 - HYPERLIPIDEMIA, UNSPECIFIED (9) HTN (hypertension) Code(s): I10 - ESSENTIAL (PRIMARY) HYPERTENSION Qualifiers: Hypertension type: essential hypertension Qualified Code(s): I10 - Essential (primary) hypertension (10) Morbid obesity with BMI of 40.0-44.9, adult Code(s): E66.01 - MORBID (SEVERE) OBESITY DUE TO EXCESS CALORIES; Z68.41 - BODY MASS INDEX (BMI) 40.0-44.9, ADULT (11) Volume overload Code(s): E87.70 - FLUID OVERLOAD, UNSPECIFIED (12) Dyspnea Code(s): R06.00 - DYSPNEA, UNSPECIFIED IMP DYSPNEA LIKELY VOLUME OVERLOAD BILATERAL PLEURAL EFFUSIONS ASHD S/P STENT ASTHMA: STABLE URI CHEST PAIN ESRD ON HD DM HTN HLD LIKELY OSAS GLAUCOMA PLAN HD PER RENAL INHALED BRONCHODILATORS PRN NO INDICATION FOR SYSTEMIC STEROIDS NO ABX SLEEP WORKUP AFTER D/C NO PULMONARY CONTRAINDICATION FOR D/C PLANNING DR BRIGHT
[2018-07-03 14:04] VITALS: BP 114/69; PULSE 82
== END 2018-07-03 15:43 | disposition home or self-care (01) ==
LOC: JER 11:45 → JERBED 15:14 → J4W 20:02
PROVIDERS: ADMIT Internal Medicine; ATTEND Nurse Practitioner Family
PROC: 3E033NZ Introduction of Analgesics, Hypnotics, Sedatives into Peripheral Vein, Percutaneous Approach (ICD-10-PCS; principal; 2018-07-01)
PROC: 3E033GC Introduction of Other Therapeutic Substance into Peripheral Vein, Percutaneous Approach (ICD-10-PCS; 2018-07-01)
PROC: 3E0F7GC Introduction of Other Therapeutic Substance into Respiratory Tract, Via Natural or Artificial Opening (ICD-10-PCS; 2018-07-01)
DX: R07.89 Other chest pain (principal); E11.22 Type 2 diabetes mellitus with diabetic chronic kidney disease; I12.0 Hypertensive chronic kidney disease with stage 5 chronic kidney disease or end stage renal disease; N18.6 End stage renal disease; Z99.2 Dependence on renal dialysis; I25.10 Atherosclerotic heart disease of native coronary artery without angina pectoris; R11.2 Nausea with vomiting, unspecified; D64.9 Anemia, unspecified; J45.909 Unspecified asthma, uncomplicated; E78.5 Hyperlipidemia, unspecified; Z91.14 Patient's other noncompliance with medication regimen; Z95.5 Presence of coronary angioplasty implant and graft; E66.01 Morbid (severe) obesity due to excess calories; Z68.41 Body mass index [BMI] 40.0-44.9, adult; J90 Pleural effusion, not elsewhere classified; J06.9 Acute upper respiratory infection, unspecified; H40.9 Unspecified glaucoma; E87.70 Fluid overload, unspecified
CPT/HCPCS: 36415; 71045-TC-FY; 80053; 80061; 82550; 82553; 82565; 82962; 83036; 83690; 83721; 83735; 83880; 84100; 84484; 84520; 84703; 85025; 85610; 86704; 86706; 86708; 86803; 87081; 87340; 87633; 87804; 93005; 93010; 93306-TC; 94640; 96365; 96375; 99285-25; G0378; J0131

== ENCOUNTER 2018-09-02 13:20 | Emergency (ER) | payer OTHER ==
[2018-09-02 13:50] VITALS: BMI 40.6
[2018-09-02] MEDS ORDERED: ACETAMINOPHEN 1000 MG/100 ML VIAL (NON FORMULARY) IVPB ONE (13:59)
[2018-09-02] MEDS ORDERED: ALBUTEROL SO4 2.5/IPRATROPIUM 0.5 INH SOL 3 ML VIAL.NEB. NEB ONE ×2 (13:59→14:14)
[2018-09-02] MEDS ORDERED: ACETAMINOPHEN INJECTION 100 ML IVPB ONE (14:13)
[2018-09-02] MEDS ORDERED: ONDANSETRON 4 MG/2 ML VIAL IVPUSH ONE (14:21)
--- NOTE | 2018-09-02 15:02 | PDOC ---
Documentation entered by Julieth Marmolejo SCRIBE, acting as scribe for Gladys Rodriguez MD. Gladys Rodriguez MD: This documentation has been prepared by the Jaleel cruz Brenda, SCRIBE, under my direction and personally reviewed by me in its entirety. I confirm that the documentation accurately reflects all work, treatment, procedures, and medical decision making performed by me. Attending Attestation - Resident Resident Name: Caitlyn Dorsey - [facility] HPI: 09/02/18 15:30 The patient is a 38 year old female, with a significant PMH of CAD (stent x1 on plavix), DM (BG in the 100s at home), ESRD (T/R/Sat), right-eye blindness, asthma, anemia, HLD and HTN who presents to the emergency department with 1 day of progressively worsening shortness of breath with wheezing and chills. The patient reports that her SOB consistent with her asthma exacerbations. Patient also reports feeling nauseous and having 3 episodes of NBNB vomiting today NBNB diarrhea and left upper quadrant abdominal pain. The patient denies taking her temperature at home. Denies taking any medications for symptoms. Denies chest pain, headache and dizziness. Denies constipation. Denies dysuria, frequency, urgency and hematuria. Last HD: Saturday Allergies: NKA Past surgical history: Graft placement L arm, cardiac stent x1 Social history: No reported - Physicial Exam PE: 09/02/18 14:44 GENERAL: (+) Appears uncomfortable. Awake, alert, and fully oriented. HEAD: No signs of trauma EYES: PERRLA, EOMI, sclera anicteric, conjunctiva clear ENT: Auricles normal inspection, hearing grossly normal, nares patent, oropharynx clear without exudates. Moist mucosa NECK: Normal ROM, supple, no lymphadenopathy, JVD, or masses LUNGS: Breath sounds equal, clear to auscultation bilaterally. No wheezes, and no crackles HEART: Regular rate and rhythm, normal S1 and S2, no murmurs, rubs or gallops ABDOMEN: (+) Abdominal tenderness in the left upper quadrant. Soft, nondistended , normoactive bowel sounds. No guarding, no rebound. No masses EXTREMITIES: Normal range of motion, no edema. No clubbing or cyanosis. No cords, erythema, or tenderness NEUROLOGICAL: Cranial nerves II through XII grossly intact. SKIN: Warm, Dry, normal turgor, no rashes or lesions noted. - Medical Decision Making 09/02/18 15:31 Pt presents to the ED complaining of fever and chills, nausea and vomiting and abdominal pain. Concern for sepsis, intraabdominal infection, PNA, asthma exacerbation. Will treat with broad spectrum antibiotics, check CT abdomen pelvis, treat with IV tylenol and admit to medicine. 09/02/18 15:33 09/02/18 15:58
[2018-09-02 15:14] LABS: VENOUS PC02 44.9 mmHg (41-51); VENOUS PH 7.33 (7.31-7.41)
[2018-09-02 15:16] LABS: BASO % 0.2 % (0-2.0); EOS % 0.8 % (0-4.5); HEMATOCRIT 32.9 % (32.4-45.2); LYMPH % 4.4 % (8-40); MCHC 33.4 g/dl (32.0-36.0); MEAN CELL VOLUME 86.9 fl (80-96); MEAN PLT VOLUME 9.2 fl (7.5-11.1); MONO % 1.7 % (3.8-10.2); NEUT % 92.9 % (42.8-82.8); PLATELET COUNT 174 K/MM3 (134-434); RBC 3.79 M/mm3 (3.60-5.2); RDW 14.3 % (11.6-15.6); WHITE BLOOD COUNT 5.2 K/mm3 (4.0-10.0)
[2018-09-02 15:29] LABS: INR 0.98 (0.83-1.09); PROTHROMBIN TIME (PATIENT) 11.6 SEC (9.7-13.0)
[2018-09-02 15:32] LABS: ACTIVATED PTT 30.9 SECONDS (25.2-36.5)
--- NOTE | 2018-09-02 15:38 | PDOC ---
History of Present Illness - General Chief Complaint: Shortness of Breath Stated Complaint: VOMITING Time Seen by Provider: 09/02/18 13:39 History Source: Patient Exam Limitations: No Limitations - History of Present Illness Initial Comments: 09/02/18 15:32 38YOF with complex medical history of ESRD (on HD T//Sat last tx on Sat after having missed last Margarita, did not have her tx today), DMII, asthma, CAD s/p PCI in 2016, HTN, and right eye blindness, who p/w SOB, chills, head-to-toe body aches slightly worse in the neck, nausea, NBNB vomiting x3 episodes today, nonbloody/nonblack diarrhea, and LUQ abdominal pain all onset yesterday and worsening since then. She denies having tried measuring her temperature at home. Denies having taken medications at home for her symptoms. Past History - Past Medical History Allergies/Adverse Reactions: Allergies Allergy/AdvReac Type Severity Reaction Status Date / Time No Known Allergies Allergy Verified 07/01/18 11:54 Home Medications: Ambulatory Orders Carvedilol [Coreg -] 25 mg PO BID tablet 01/19/16 Clopidogrel Bisulfate [Plavix -] 75 mg PO DAILY tablet 01/19/16 Pantoprazole Sodium [Protonix -] 40 mg PO BID tablet.ec 01/19/16 Sevelamer Carbonate [Renvela -] 2,400 mg PO TIDCM tab 01/19/16 Amlodipine Besylate 10 mg PO DAILY 07/01/18 Atorvastatin Ca [Lipitor] 20 mg PO HS 07/01/18 Aspirin [ASA -] 81 mg PO DAILY tab.chew 07/03/18 Docusate Sodium [Colace -] 100 mg PO BID capsule 07/03/18 Insulin Sliding Scale [Novolog Vial Sliding Scale -] 1 vial SQ ACHS units 07/03 Anemia: Yes Asthma: Yes Cancer: No Cardiac Disorders: Yes (1 stent) COPD: No CHF: Yes Diabetes: Yes (Type 1) Dialysis: Yes (T/R/Sat) HTN: Yes Hypercholesterolemia: Yes - Surgical History Cardiac Surgery: Yes (STENT) - Suicide/Smoking/Psychosocial Hx Smoking Status: No Smoking History: Never smoked Years of Tobacco Use: 0 Have you smoked in the past 12 months: No Number of Cigarettes Smoked Daily: 0 Cigars Per Day: 0 Information on smoking cessation initiated: No Hx Alcohol Use: No Drug/Substance Use Hx: No Substance Use Type: None Hx Substance Use Treatment: No Review of Systems - Review of Systems Able to Perform ROS?: Yes Comments:: 09/02/18 15:47 GEN: chills, malaise, generalized weakness, no weight change HEENT: no ear pain, sore throat, vision change, or eye pain CV: chronic edema, no chest pain, palpitations, lightheadedness, or syncope RESP: SOB, no cough, or wheezing GI: abdominal pain, nausea, vomiting, diarrhea, no constipation, or white/black/ bloody stool : does not make urine at baseline, no bleeding, or discharge MSK: mild neck pain, no neck stiffness, no back pain, muscle weakness/pain, or joint swelling/pain NEURO: no headache, seizure, vertigo, numbness, tingling, or focal weakness PSYCH: no substance use, no behavior change SKIN: no jaundice, no rash ROS otherwise negative except as noted in HPI *Physical Exam - Vital Signs Last Vital Signs Temp Pulse Resp BP Pulse Ox 99.2 F 125 H 22 H 132/86 86 L 09/02/18 13:20 09/02/18 13:20 09/02/18 13:20 09/02/18 13:20 09/02/18 13:31 - Physical Exam Comments: 09/02/18 15:49 GENERAL: ill-appearing, A/Ox4, moderate distress, answers questions appropriately, bundled up in multiple ED blankets, shivering, appears uncomfortable, morbid obesity HEENT: PERRLA, EOMI, moist mucous membranes NECK/BACK: no midline ttp, no spinal stepoff or deformity, no hematoma, full ROM , neck supple CARDIOVASCULAR: rapid regular rate, normal S1S2, no MGR, strong peripheral pulses, capillary refill <2 seconds, extremities wwp, BLE 1+ pitting edema, AV fistulas in the LUE with most proximal one with good bruit and thrill LUNGS/RESPIRATORY: mildly tachypneic but otherwise no respiratory distress, CTAB GI/ABDOMEN: symmetric [id number], normoactive BS, soft, moderate epigastric and LUQ ttp, no midline pulsatile masses : no CVA tenderness EXTREMITIES: no muscle atrophy, no acute deformity, 1+ pitting edema BLE SKIN: warm and dry, no pallor, no jaundice, no rash, no bruising, no skin breakdown, no cuts, no lesions NEUROLOGICAL: GCS 15, CN II-XII grossly intact, 5/5 strength proximally and distally, no facial droop Heart Score/ECG Review #1 09/02/18 14:58 Sinus tachycardia, rate 107, normal axis and intervals, no ST-T changes, no change from prior EKG ED Treatment Course - LABORATORY CBC & Chemistry Diagram: 09/02/18 14:45 09/02/18 14:45 - ADDITIONAL ORDERS Additional order review: Laboratory Results 09/02/18 09/02/18 14:45 14:45 PT with INR 11.60 INR 0.98 VBG pH 7.33 POC VBG pCO2 44.9 POC VBG pO2 31.0 VBG HCO3 23.3 VBG O2 Sat (Reyes) 46.6 L VBG Base Excess -2.0 09/02/18 14:45 RBC 3.79 MCV 86.9 MCHC 33.4 RDW 14.3 MPV 9.2 Neutrophils % 92.9 H D Lymphocytes % 4.4 L D Monocytes % 1.7 L Eosinophils % 0.8 D Basophils % 0.2 - RADIOLOGY Radiology Studies Ordered: Category Date Time Status CHEST X-RAY PORTABLE* [RAD] Stat Radiology 09/02/18 13:57 Ordered - Medications Given in the ED: ED Medications Discontinued Medications Generic Name Dose Route Start Last Admin Trade Name Freq PRN Reason Stop Dose Admin Albuterol/Ipratropium 1 amp 09/02/18 13:59 09/02/18 14:18 Duoneb - NEB 09/02/18 14:00 1 amp ONCE ONE Administration Medical Decision Making - Medical Decision Making 09/02/18 15:56 38YOF with complex medical history p/w abdominal pain, n/v/d, chills. Initial Vital Signs Temp Pulse Resp BP Pulse Ox 99.2 F 125 H 22 H 132/86 88 L 09/02/18 13:20 09/02/18 13:20 09/02/18 13:20 09/02/18 13:20 09/02/18 13:20 Rectal temp is 101.4 Exam: As noted in Physical Exam section. DDX IBNLT: cholecystitis, choledocholithiasis, cholangitis, pancreatitis, gastritis, LLL PNA, PUD, colitis, ACS, pyelonephritis, less likely renal stone, appendicitis, SBO, mesenteric/bowel ischemia, bowel perforation, constipation, gas, etc W/U ordered: Sepsis order set labs, EKG [facility] CT [facility] for the time being as the patient has ESRD and is due for HD today and is not hypotensive, no overt e/o dehydration. EKG: Reviewed; results as noted in ECG Review section. CXR: Mild vascular congestion, mild right pleural effusion, mild cardiomegaly, otherwise nothing acute. Patient's BG was 58 and she was given D50 1 amp. Vancomycin and Zosyn ordered. Reassessment: Patient appears more comfortable, no longer shivering. Laboratory Tests 09/02/18 09/02/18 09/02/18 14:45 14:45 14:45 WBC 5.2 RBC 3.79 Hgb 11.0 Hct 32.9 MCV 86.9 MCH 29.0 MCHC 33.4 RDW 14.3 Plt Count 174 MPV 9.2 Absolute Neuts (auto) 4.8 Neutrophils % 92.9 H D Neutrophils % (Manual) 84.7 H Band Neutrophils % 8.2 Lymphocytes % 4.4 L D Lymphocytes % (Manual) 5.1 L Monocytes % 1.7 L Monocytes % (Manual) 1 L Eosinophils % 0.8 D Eosinophils % (Manual) 0.0 Basophils % 0.2 Basophils % (Manual) 0.0 Myelocytes % (Man) 0 Promyelocytes % (Man) 0 Blast Cells % (Manual) 0 Nucleated RBC % 0 Metamyelocytes 1 Hypochromia 1+ Platelet Estimate Normal Polychromasia 0 Poikilocytosis 0 Anisocytosis 0 Microcytosis 0 Macrocytosis 0 PT with INR 11.60 INR 0.98 PTT (Actin FS) 30.9 VBG pH 7.33 POC VBG pCO2 44.9 POC VBG pO2 31.0 VBG HCO3 23.3 VBG O2 Sat (Reyes) 46.6 L VBG Base Excess -2.0 Sodium Potassium Chloride Carbon Dioxide Anion Gap BUN Creatinine Est GFR (CKD-EPI)AfAm Est GFR (CKD-EPI)NonAf Random Glucose Lactic Acid Calcium Total Bilirubin AST ALT Alkaline Phosphatase Creatine Kinase Creatine Kinase Index CK-MB (CK-2) Troponin I Total Protein Albumin Serum , Qual Blood Type Antibody Screen 09/02/18 09/02/18 09/02/18 14:45 14:45 14:50 WBC RBC Hgb Hct MCV MCH MCHC RDW Plt Count MPV Absolute Neuts (auto) Neutrophils % Neutrophils % (Manual) Band Neutrophils % Lymphocytes % Lymphocytes % (Manual) Monocytes % Monocytes % (Manual) Eosinophils % Eosinophils % (Manual) Basophils % Basophils % (Manual) Myelocytes % (Man) Promyelocytes % (Man) Blast Cells % (Manual) Nucleated RBC % Metamyelocytes Hypochromia Platelet Estimate Polychromasia Poikilocytosis Anisocytosis Microcytosis Macrocytosis PT with INR INR PTT (Actin FS) VBG pH POC VBG pCO2 POC VBG pO2 VBG HCO3 VBG O2 Sat (Reyes) VBG Base Excess Sodium 139 Potassium 4.8 Chloride 100 Carbon Dioxide 24 Anion Gap 15 BUN 78.3 H Creatinine 12.4 H* Est GFR (CKD-EPI)AfAm 4.00 Est GFR (CKD-EPI)NonAf 3.45 Random Glucose 58 L Lactic Acid 1.7 Calcium 8.5 Total Bilirubin 0.5 AST 269 H ALT 153 H Alkaline Phosphatase 272 H Creatine Kinase 375 H Creatine Kinase Index 2.6 CK-MB (CK-2) 9.6 H Troponin I 1.64 H* Total Protein 7.6 Albumin 3.2 L Serum , Qual Blood Type O POSITIVE Antibody Screen Negative 09/02/18 15:31 WBC RBC Hgb Hct MCV MCH MCHC RDW Plt Count MPV Absolute Neuts (auto) Neutrophils % Neutrophils % (Manual) Band Neutrophils % Lymphocytes % Lymphocytes % (Manual) Monocytes % Monocytes % (Manual) Eosinophils % Eosinophils % (Manual) Basophils % Basophils % (Manual) Myelocytes % (Man) Promyelocytes % (Man) Blast Cells % (Manual) Nucleated RBC % Metamyelocytes Hypochromia Platelet Estimate Polychromasia Poikilocytosis Anisocytosis Microcytosis Macrocytosis PT with INR INR PTT (Actin FS) VBG pH POC VBG pCO2 POC VBG pO2 VBG HCO3 VBG O2 Sat (Reyes) VBG Base Excess Sodium Potassium Chloride Carbon Dioxide Anion Gap BUN Creatinine Est GFR (CKD-EPI)AfAm Est GFR (CKD-EPI)NonAf Random Glucose Lactic Acid Calcium Total Bilirubin AST ALT Alkaline Phosphatase Creatine Kinase Creatine Kinase Index CK-MB (CK-2) Troponin I Total Protein Albumin Serum , Qual Negative Blood Type Antibody Screen Again there are no ischemic ST-T changes noted on initial EKG; no changes from prior (TWI in V2 is likely position of EKG leads). Vital Signs Temperature 98.2 F 09/02/18 16:55 Pulse Rate 99 H 09/02/18 16:55 Respiratory Rate 20 09/02/18 16:55 Blood Pressure 102/71 09/02/18 16:55 O2 Sat by Pulse Oximetry (%) 96 09/02/18 16:55 CT/ABDOMEN PELVIS CT WITH CONTR History of end-stage renal disease. Abdominal pain. Sepsis. CT scan of the abdomen and pelvis following oral and intravenous contrast. Coronal and sagittal reformatted images were obtained 93 cc of Visipaque 320 was intravenously injected Comparison: Prior CT scan of the abdomen pelvis dated 05/20/[address] scan of the chest dated 05/29. There are mild atelectatic changes in the included lower lung, bilaterally with pleural thickening and minimal right pleural effusion. Mild cardiomegaly and a small pericardial effusion are present. The liver is significantly enlarged measuring 23.5 cm in craniocaudal length with homogeneous attenuation. The spleen is within normal limits in size and enhancement. Partially distended stomach limiting evaluation of its wall. The pancreas, gallbladder and both adrenal glands appear unremarkable. Both kidneys are small with a simple cyst in the left renal upper pole measuring 1.5 cm. There is no evidence of hydroureteronephrosis, gross renal or ureteral stones, bilaterally. Partially distended urinary bladder with suggestion of significant thickening of its wall. There is no evidence of small bowel obstruction. Normal-appearing terminal ileum. Nonvisualization of the appendix. Normal stool burden the colon without gross wall thickening. Normal size uterus with peripheral calcifications. Both ovaries are identified without gross enlargement. There is suggestion of thickening of the rectosigmoid junction wall. Faint sclerotic changes involving the lumbar spine compatible with the clinical history of end- stage renal disease. L5-S1 moderate degenerative disc disease is present with mild irregularity of the corresponding endplates. Moderate central and left paracentral disc bulge/herniation with posterior spur formation is present reaching and likely impinging left S1 nerve root. Impression: Mild atelectatic changes in the right lung base with pleural thickening and minimal right pleural effusion. Cannot rule out infiltrates. Significant hepatomegaly. Bilateral small kidneys compatible with history of end-stage renal disease. Small left renal simple cyst measuring 1.5 cm. Extensive vascular calcifications in the upper abdomen. There is no evidence of small bowel obstruction. There is significant diffuse thickening of the urinary bladder wall. Although this may be partially due to only minimal distention, cystitis should be considered. Correlate clinically. There is thickening of the rectosigmoid junction wall. No free air, free fluid or gross enlarged lymph nodes are identified. Moderate degenerative disc disease at L5-S1 level with irregularity of the corresponding endplates as well as moderate central and left paracentral disc bulge/herniation with posterior spur formation reaching and probably impinging left S1 nerve root. The Pts symptoms persist despite ED treatments. The Pt is unsafe for discharge at this time. They require further hospital observation, workup, and treatment. Due to marked increase in troponin on repeat, the patient may need transfer to labourers facility. Dr. Mack kindly assumes the care of this patient at the end of my shift. *DC/Admit/Observation/Transfer Diagnosis at time of Disposition: NSTEMI (non-ST elevated myocardial infarction), Elevated LFTs, ESRD (end stage renal disease) on dialysis, ESRD needing dialysis Sepsis Qualifiers: Sepsis type: sepsis due to unspecified organism Qualified Code(s): A41.9 - Sepsis, unspecified organism Abdominal pain Qualifiers: Abdominal location: unspecified location Qualified Code(s): R10.9 - Unspecified abdominal pain - Discharge Dispostion Disposition: TRANSFER ACUTE CARE/OTHER HOSP Condition at time of disposition: Guarded - Referrals - Patient Instructions - Post Discharge Activity
[2018-09-02 15:40] LABS: ALBUMIN 3.2 g/dl (3.4-5.0); BILIRUBIN,TOTAL 0.5 mg/dL (0.2-1); BLOOD UREA NITROGEN 78.3 mg/dL (7-18); CALCIUM 8.5 mg/dL (8.5-10.1); POTASSIUM 4.8 mmol/L (3.5-5.1); TOT PROT 7.6 g/dl (6.4-8.2)
[2018-09-02 15:41] LABS: CREATININE 12.4 mg/dL (0.55-1.3)
[2018-09-02] MEDS ORDERED: PIPERACILLIN/TAZOB 4.5 GM 4.5 GM in DEXTROSE 5%-WATER 100 ML IVPB ONE (15:59)
[2018-09-02] MEDS ORDERED: VANCOMYCIN 2,000 MG in DEXTROSE 5%-WATER - 250 ML IVPB ONE (16:02)
[2018-09-02] MEDS ORDERED: DEXTROSE 50%-WATER - 25 GM/50 ML VIAL IVPUSH ONE (16:08)
[2018-09-02] MEDS ORDERED: DEXTROSE 50%-WATER 25 GM/50 ML DISP.SYRIN ONE (16:09)
[2018-09-02] MEDS ORDERED: ONDANSETRON 4 MG/2 ML VIAL ONE (16:28)
[2018-09-02] MEDS ORDERED: PIPERACILLIN/TAZOB 4.5 GM 4.5 GM/100 ML BAG IVPB ONE (16:28)
[2018-09-02] MEDS ORDERED: ASPIRIN 81 MG CHEWABLE TABLETS PO ONE (17:27)
[2018-09-02 17:28] LABS: ANISOCYTOSIS 0; MACROCYTOSIS 0; PLATELET ESTIMATE NORMAL
[2018-09-02] MEDS ORDERED: VANCOMYCIN 2,000 MG in DEXTROSE 5%-WATER - 500 ML IVPB ONE (17:45)
[2018-09-02] MEDS ORDERED: ASPIRIN 81 MG CHEWABLE TABLETS ONE (18:21)
[2018-09-02 20:03] VITALS: BP 94/51
[2018-09-02] MEDS ORDERED: SODIUM CHLORIDE 0.9% 500 ML INFUS.BAG IV ONE (20:13)
--- NOTE | 2018-09-02 20:18 | PDOC ---
*Physical Exam - Vital Signs Last Vital Signs Temp Pulse Resp BP Pulse Ox 98.0 F 87 20 94/51 L 95 09/02/18 20:00 09/02/18 20:00 09/02/18 16:55 09/02/18 20:00 09/02/18 20:00 ED Treatment Course - LABORATORY CBC & Chemistry Diagram: 09/02/18 14:45 09/02/18 14:45 - ADDITIONAL ORDERS Additional order review: Laboratory Results 09/02/18 09/02/18 09/02/18 18:21 16:52 15:31 PT with INR INR PTT (Actin FS) VBG pH POC VBG pCO2 POC VBG pO2 VBG HCO3 VBG O2 Sat (Reyes) VBG Base Excess Sodium Potassium Chloride Carbon Dioxide Anion Gap BUN Creatinine Est GFR (CKD-EPI)AfAm Est GFR (CKD-EPI)NonAf Random Glucose Lactic Acid Calcium Total Bilirubin AST ALT Alkaline Phosphatase Creatine Kinase Creatine Kinase Index CK-MB (CK-2) Troponin I 15.50 H* Cancelled Total Protein Albumin Serum , Qual Negative Blood Type Antibody Screen 09/02/18 09/02/18 09/02/18 14:50 14:45 14:45 PT with INR INR PTT (Actin FS) VBG pH POC VBG pCO2 POC VBG pO2 VBG HCO3 VBG O2 Sat (Reyes) VBG Base Excess Sodium 139 Potassium 4.8 Chloride 100 Carbon Dioxide 24 Anion Gap 15 BUN 78.3 H Creatinine 12.4 H* Est GFR (CKD-EPI)AfAm 4.00 Est GFR (CKD-EPI)NonAf 3.45 Random Glucose 58 L Lactic Acid 1.7 Calcium 8.5 Total Bilirubin 0.5 AST 269 H ALT 153 H Alkaline Phosphatase 272 H Creatine Kinase 375 H Creatine Kinase Index 2.6 CK-MB (CK-2) 9.6 H Troponin I 1.64 H* Total Protein 7.6 Albumin 3.2 L Serum , Qual Blood Type O POSITIVE Antibody Screen Negative 09/02/18 09/02/18 14:45 14:45 PT with INR 11.60 INR 0.98 PTT (Actin FS) 30.9 VBG pH 7.33 POC VBG pCO2 44.9 POC VBG pO2 31.0 VBG HCO3 23.3 VBG O2 Sat (Reyes) 46.6 L VBG Base Excess -2.0 Sodium Potassium Chloride Carbon Dioxide Anion Gap BUN Creatinine Est GFR (CKD-EPI)AfAm Est GFR (CKD-EPI)NonAf Random Glucose Lactic Acid Calcium Total Bilirubin AST ALT Alkaline Phosphatase Creatine Kinase Creatine Kinase Index CK-MB (CK-2) Troponin I Total Protein Albumin Serum , Qual Blood Type Antibody Screen 09/02/18 14:45 RBC 3.79 MCV 86.9 MCHC 33.4 RDW 14.3 MPV 9.2 Neutrophils % 92.9 H D Lymphocytes % 4.4 L D Monocytes % 1.7 L Eosinophils % 0.8 D Basophils % 0.2 - Medications Given in the ED: ED Medications Discontinued Medications Generic Name Dose Route Start Last Admin Trade Name Freq PRN Reason Stop Dose Admin Acetaminophen 1,000 mg 09/02/18 13:59 09/02/18 15:30 Ofirmev Injection - IVPB 09/02/18 14:00 1,000 mg ONCE ONE Administration Albuterol/Ipratropium 1 amp 09/02/18 13:59 09/02/18 14:18 Duoneb - NEB 09/02/18 14:00 1 amp ONCE ONE Administration Aspirin 324 mg 09/02/18 17:27 09/02/18 18:28 Asa - PO 09/02/18 17:28 324 mg ONCE ONE Administration Dextrose 25 gm 09/02/18 16:08 09/02/18 16:20 D50w (Vial) - IVPUSH 09/02/18 16:09 25 gm NOW ONE Administration Piperacillin Sod/Tazobactam 100 mls @ 200 mls/hr 09/02/18 15:59 09/02/18 16: 15 Sod 4.5 gm/ Dextrose IVPB 09/02/18 16:28 200 mls/hr ONCE ONE Administration Protocol Vancomycin HCl 2,000 mg/ 500 mls @ 250 mls/hr 09/02/18 17:45 09/02/18 18:20 Dextrose IVPB 09/02/18 19:44 250 mls/hr ONCE ONE Administration Ondansetron HCl 8 mg 09/02/18 14:21 09/02/18 16:45 Zofran Injection IVPUSH 09/02/18 14:22 8 mg ONCE ONE Administration Medical Decision Making - Medical Decision Making 09/02/18 20:10 pt has a POSITIVE TROPONIN that increased from 1.64 to 15 in several hours .Pt has no c/o chest pain. Pt is alin transferred to [facility] CCU for nstemi and they are here to take her *DC/Admit/Observation/Transfer Diagnosis at time of Disposition: NSTEMI (non-ST elevated myocardial infarction), Elevated LFTs, ESRD (end stage renal disease) on dialysis, ESRD needing dialysis Sepsis Qualifiers: Sepsis type: sepsis due to unspecified organism Qualified Code(s): A41.9 - Sepsis, unspecified organism Abdominal pain Qualifiers: Abdominal location: unspecified location Qualified Code(s): R10.9 - Unspecified abdominal pain - Discharge Dispostion Disposition: TRANSFER ACUTE CARE/OTHER HOSP Condition at time of disposition: Guarded - Referrals - Patient Instructions - Post Discharge Activity - Transfer to Acute Care Facility Receiving Facility: [facility] Accepting Physician:: DR Toribio Transfer comment: 09/02/18 20:26 CCU admission
--- NOTE | 2018-09-02 20:19 | PDOC ---
*Physical Exam - Vital Signs Last Vital Signs Temp Pulse Resp BP Pulse Ox 98.0 F 87 20 94/51 L 95 09/02/18 20:00 09/02/18 20:00 09/02/18 16:55 09/02/18 20:00 09/02/18 20:00 ED Treatment Course - LABORATORY CBC & Chemistry Diagram: 09/02/18 14:45 09/02/18 14:45 - ADDITIONAL ORDERS Additional order review: Laboratory Results 09/02/18 09/02/18 09/02/18 18:21 16:52 15:31 PT with INR INR PTT (Actin FS) VBG pH POC VBG pCO2 POC VBG pO2 VBG HCO3 VBG O2 Sat (Reyes) VBG Base Excess Sodium Potassium Chloride Carbon Dioxide Anion Gap BUN Creatinine Est GFR (CKD-EPI)AfAm Est GFR (CKD-EPI)NonAf Random Glucose Lactic Acid Calcium Total Bilirubin AST ALT Alkaline Phosphatase Creatine Kinase Creatine Kinase Index CK-MB (CK-2) Troponin I 15.50 H* Cancelled Total Protein Albumin Serum , Qual Negative Blood Type Antibody Screen 09/02/18 09/02/18 09/02/18 14:50 14:45 14:45 PT with INR INR PTT (Actin FS) VBG pH POC VBG pCO2 POC VBG pO2 VBG HCO3 VBG O2 Sat (Reyes) VBG Base Excess Sodium 139 Potassium 4.8 Chloride 100 Carbon Dioxide 24 Anion Gap 15 BUN 78.3 H Creatinine 12.4 H* Est GFR (CKD-EPI)AfAm 4.00 Est GFR (CKD-EPI)NonAf 3.45 Random Glucose 58 L Lactic Acid 1.7 Calcium 8.5 Total Bilirubin 0.5 AST 269 H ALT 153 H Alkaline Phosphatase 272 H Creatine Kinase 375 H Creatine Kinase Index 2.6 CK-MB (CK-2) 9.6 H Troponin I 1.64 H* Total Protein 7.6 Albumin 3.2 L Serum , Qual Blood Type O POSITIVE Antibody Screen Negative 09/02/18 09/02/18 14:45 14:45 PT with INR 11.60 INR 0.98 PTT (Actin FS) 30.9 VBG pH 7.33 POC VBG pCO2 44.9 POC VBG pO2 31.0 VBG HCO3 23.3 VBG O2 Sat (Reyes) 46.6 L VBG Base Excess -2.0 Sodium Potassium Chloride Carbon Dioxide Anion Gap BUN Creatinine Est GFR (CKD-EPI)AfAm Est GFR (CKD-EPI)NonAf Random Glucose Lactic Acid Calcium Total Bilirubin AST ALT Alkaline Phosphatase Creatine Kinase Creatine Kinase Index CK-MB (CK-2) Troponin I Total Protein Albumin Serum , Qual Blood Type Antibody Screen 09/02/18 14:45 RBC 3.79 MCV 86.9 MCHC 33.4 RDW 14.3 MPV 9.2 Neutrophils % 92.9 H D Lymphocytes % 4.4 L D Monocytes % 1.7 L Eosinophils % 0.8 D Basophils % 0.2 - Medications Given in the ED: ED Medications Discontinued Medications Generic Name Dose Route Start Last Admin Trade Name Freq PRN Reason Stop Dose Admin Acetaminophen 1,000 mg 09/02/18 13:59 09/02/18 15:30 Ofirmev Injection - IVPB 09/02/18 14:00 1,000 mg ONCE ONE Administration Albuterol/Ipratropium 1 amp 09/02/18 13:59 09/02/18 14:18 Duoneb - NEB 09/02/18 14:00 1 amp ONCE ONE Administration Aspirin 324 mg 09/02/18 17:27 09/02/18 18:28 Asa - PO 09/02/18 17:28 324 mg ONCE ONE Administration Dextrose 25 gm 09/02/18 16:08 09/02/18 16:20 D50w (Vial) - IVPUSH 09/02/18 16:09 25 gm NOW ONE Administration Piperacillin Sod/Tazobactam 100 mls @ 200 mls/hr 09/02/18 15:59 09/02/18 16: 15 Sod 4.5 gm/ Dextrose IVPB 09/02/18 16:28 200 mls/hr ONCE ONE Administration Protocol Vancomycin HCl 2,000 mg/ 500 mls @ 250 mls/hr 09/02/18 17:45 09/02/18 18:20 Dextrose IVPB 09/02/18 19:44 250 mls/hr ONCE ONE Administration Ondansetron HCl 8 mg 09/02/18 14:21 09/02/18 16:45 Zofran Injection IVPUSH 09/02/18 14:22 8 mg ONCE ONE Administration Medical Decision Making - Medical Decision Making 19:45 Received sign out from resident Dr. Jones. In short, pt is a 38 y/o female with ESRD (last Dialysis Saturday, missed today), CAD s/p AR with PCI couple years ago, Asthma. Presenting with LUQ abd pain, SOB, N/V/D x2 days. Labs revealed elevated LFT. No elevated lactic. Given Vancomycin and Zosyn. Initial troponin 1.6. No ischemic changes on initial EKG. Repeat troponin elevated to above 15. Repeat EKG unremarkable for ischemic or dynamic changes. Pt continues to deny chest pain. Anticipate transfer to [facility] for NSTEMI. 19:58 Telephone consultation with resident Dr. Kohler. Verbally appraised of the pts HPI, ED course, and current plan of management. Copies of both EKGs transmitted and reviewed. Will accept the pt to the CCU for attending Dr. Toribio. Requested small IVFB for borderline hypotension prior to departure. Ordered NS IVFB. *DC/Admit/Observation/Transfer Diagnosis at time of Disposition: NSTEMI (non-ST elevated myocardial infarction), Elevated LFTs, ESRD (end stage renal disease) on dialysis, ESRD needing dialysis Sepsis Qualifiers: Sepsis type: sepsis due to unspecified organism Qualified Code(s): A41.9 - Sepsis, unspecified organism Abdominal pain Qualifiers: Abdominal location: unspecified location Qualified Code(s): R10.9 - Unspecified abdominal pain - Discharge Dispostion Disposition: TRANSFER ACUTE CARE/OTHER HOSP Condition at time of disposition: Guarded Decision to Admit order: No - Referrals - Patient Instructions - Post Discharge Activity - Transfer to Acute Care Facility Receiving Facility: [facility] (CCU) Accepting Physician:: Dr. Toribio (attending). Dr. Kohler (resident).
[2018-09-03 00:37] VITALS: PULSE 89; TEMP 98.1
--- NOTE | 2018-09-03 11:20 | EKG ---
Test Reason : Blood Pressure : / mmHG Vent. Rate : 107 BPM Atrial Rate : 107 BPM P-R Int : 138 ms QRS Dur : 064 ms QT Int : 316 ms P-R-T Axes : 036 029 041 degrees QTc Int : 421 ms SINUS TACHYCARDIA SEPTAL INFARCT (CITED ON OR BEFORE 01-JUL-2018) ABNORMAL ECG WHEN COMPARED WITH ECG OF 01-JUL-2018 11:51, QUESTIONABLE CHANGE IN INITIAL FORCES OF SEPTAL LEADS Confirmed by MARTHA TOBAR, KRISTIAN ([id number]) on 09/03/2018 11:19:28 AM Referred By: Confirmed By:KRISTIAN THOMAS MD
--- NOTE | 2018-09-03 23:46 | PDOC ---
*Physical Exam - Vital Signs Last Vital Signs Temp Pulse Resp BP Pulse Ox 98.1 F 89 14 94/51 L 99 09/02/18 20:25 09/02/18 20:25 09/02/18 20:25 09/02/18 20:25 09/02/18 20:15 ED Treatment Course - LABORATORY CBC & Chemistry Diagram: 09/02/18 14:45 09/02/18 14:45 - ADDITIONAL ORDERS Additional order review: 09/02/18 14:50 Blood Culture - Preliminary Blood - Peripheral Venous Pending Organism 09/02/18 14:50 Blood Culture - Preliminary Blood - Peripheral Venous NO GROWTH OBTAINED AFTER 24 HOURS, INCUBATION TO CONTINUE FOR 4 DAYS. 09/02/18 14:45 RBC 3.79 MCV 86.9 MCHC 33.4 RDW 14.3 MPV 9.2 Neutrophils % 92.9 H D Lymphocytes % 4.4 L D Monocytes % 1.7 L Eosinophils % 0.8 D Basophils % 0.2 - Medications Given in the ED: ED Medications Discontinued Medications Generic Name Dose Route Start Last Admin Trade Name Melissa PRN Reason Stop Dose Admin Acetaminophen 1,000 mg 09/02/18 13:59 09/02/18 15:30 Ofirmev Injection - IVPB 09/02/18 14:00 1,000 mg ONCE ONE Administration Albuterol/Ipratropium 1 amp 09/02/18 13:59 09/02/18 14:18 Duoneb - NEB 09/02/18 14:00 1 amp ONCE ONE Administration Aspirin 324 mg 09/02/18 17:27 09/02/18 18:28 Asa - PO 09/02/18 17:28 324 mg ONCE ONE Administration Dextrose 25 gm 09/02/18 16:08 09/02/18 16:20 D50w (Vial) - IVPUSH 09/02/18 16:09 25 gm NOW ONE Administration Piperacillin Sod/Tazobactam 100 mls @ 200 mls/hr 09/02/18 15:59 09/02/18 16: 15 Sod 4.5 gm/ Dextrose IVPB 09/02/18 16:28 200 mls/hr ONCE ONE Administration Protocol Vancomycin HCl 2,000 mg/ 500 mls @ 250 mls/hr 09/02/18 17:45 09/02/18 18:20 Dextrose IVPB 09/02/18 19:44 250 mls/hr ONCE ONE Administration Ondansetron HCl 8 mg 09/02/18 14:21 09/02/18 16:45 Zofran Injection IVPUSH 09/02/18 14:22 8 mg ONCE ONE Administration Sodium Chloride 250 ml 09/02/18 20:13 09/02/18 20:20 Normal Saline - IV 09/02/18 20:14 250 ml ONCE ONE Administration Progress Note - Progress Note Progress Note: Received call from lab for positive aerobic blood culture. Single bottle growing gram positive cocci in clusters. Given growth in single bottle, suspect staph contamination. Pt has been transferred to [facility] CCU. Called and reported finding to resident Dr. Man. Copy of result faxed. CCU Contact Information: Phone: *DC/Admit/Observation/Transfer Diagnosis at time of Disposition: NSTEMI (non-ST elevated myocardial infarction), Elevated LFTs, ESRD (end stage renal disease) on dialysis, ESRD needing dialysis Sepsis Qualifiers: Sepsis type: sepsis due to unspecified organism Qualified Code(s): A41.9 - Sepsis, unspecified organism Abdominal pain Qualifiers: Abdominal location: unspecified location Qualified Code(s): R10.9 - Unspecified abdominal pain - Discharge Dispostion Disposition: TRANSFER ACUTE CARE/OTHER HOSP Condition at time of disposition: Guarded - Referrals - Patient Instructions - Post Discharge Activity
--- NOTE | 2018-09-04 12:32 | EKG ---
Test Reason : Blood Pressure : / mmHG Vent. Rate : 087 BPM Atrial Rate : 087 BPM P-R Int : 148 ms QRS Dur : 088 ms QT Int : 380 ms P-R-T Axes : 044 034 076 degrees QTc Int : 457 ms NORMAL SINUS RHYTHM NORMAL ECG WHEN COMPARED WITH ECG OF 02-SEP-2018 14:58, ST NO LONGER ELEVATED IN LATERAL LEADS Confirmed by HARSHIL SMITH MD ([id number]) on 09/04/2018 12:32:32 PM Referred By: Confirmed By:HARSHIL SMITH MD
== END 2018-09-02 20:30 | disposition short-term general hospital (02) ==
LOC: JER 13:20
PROC: 3E0F7GC Introduction of Other Therapeutic Substance into Respiratory Tract, Via Natural or Artificial Opening (ICD-10-PCS; principal; 2018-09-02)
PROC: 3E03329 Introduction of Other Anti-infective into Peripheral Vein, Percutaneous Approach (ICD-10-PCS; 2018-09-02)
PROC: 3E03329 Introduction of Other Anti-infective into Peripheral Vein, Percutaneous Approach (ICD-10-PCS; 2018-09-02)
PROC: 3E033GC Introduction of Other Therapeutic Substance into Peripheral Vein, Percutaneous Approach (ICD-10-PCS; 2018-09-02)
PROC: 3E033GC Introduction of Other Therapeutic Substance into Peripheral Vein, Percutaneous Approach (ICD-10-PCS; 2018-09-02)
DX: I21.4 Non-ST elevation (NSTEMI) myocardial infarction (principal); A41.9 Sepsis, unspecified organism; I25.10 Atherosclerotic heart disease of native coronary artery without angina pectoris; I13.11 Hypertensive heart and chronic kidney disease without heart failure, with stage 5 chronic kidney disease, or end stage renal disease; N18.6 End stage renal disease; Z99.2 Dependence on renal dialysis; Z95.5 Presence of coronary angioplasty implant and graft; E11.21 Type 2 diabetes mellitus with diabetic nephropathy; Z79.4 Long term (current) use of insulin; H54.61 Unqualified visual loss, right eye, normal vision left eye; J45.909 Unspecified asthma, uncomplicated; D64.9 Anemia, unspecified; E78.5 Hyperlipidemia, unspecified
CPT/HCPCS: 36415; 71045-TC-FY; 74177-TC; 80053; 82550; 82553; 82803; 83605; 83690; 84484; 84703; 85025; 85610; 85730; 86850; 86900; 86901; 87040; 87186; 93005; 93010; 94640; 96365; 96367; 96375; 99285-25; J0131